=== PATIENT | female | born 1935 | race Caucasian/White ===

== ENCOUNTER 2016-06-17 09:52 | Emergency (ER) | payer OTHER ==
--- NOTE | 2016-06-17 10:25 | PROVIDER DOCUMENTATION ---
HPI-Neurological Disorder - General Chief Complaint: Altered Mental Status Stated Complaint: AMS Time Seen by Provider: 06/17/16 09:56 Source: patient, EMS, other (talked with assisted living) Allergies/Adverse Reactions: Patient Allergies Allergy/AdvReac Type Severity Reaction Status Date / Time No Known Allergies Allergy Verified 06/17/16 10:56 Home Medications: Home Medication List Medication Instructions Recorded Confirmed Last Taken Type Aspirin [Aspir-Low] 81 mg PO DAILY 04/09/16 06/17/16 06/17/16 History Atorvastatin Calcium 20 mg PO HS 04/09/16 06/17/16 06/16/16 History Famotidine 40 mg PO DAILY 04/09/16 06/17/16 06/17/16 History Folic Acid 1 mg PO DAILY 04/09/16 06/17/16 06/17/16 History Furosemide 40 mg PO DAILY 04/09/16 06/17/16 06/17/16 History Hydralazine HCl 50 mg PO BID 04/09/16 06/17/16 06/17/16 History Insulin NPH Hum/Reg Insulin Hm 10 unit SQ QPM 04/09/16 06/17/16 06/16/16 History [Humulin 70/30 Kwikpen] Insulin NPH Hum/Reg Insulin Hm 15 unit SQ QAM 04/09/16 06/17/16 06/17/16 History [Humulin 70/30 Kwikpen] Nifedipine E.r. [Adalat cc] 30 mg PO TID 04/09/16 06/17/16 06/17/16 History Olanzapine [Zyprexa] 5 mg PO HS 04/09/16 06/17/16 06/16/16 History Spironolactone 25 mg PO DAILY 04/09/16 06/17/16 06/17/16 History Warfarin Sodium 2 mg PO DIRECTED 04/09/16 06/17/16 06/17/16 History Warfarin Sodium 4 mg PO DIRECTED 04/09/16 06/17/16 06/16/16 History Divalproex Sodium [Depakote ER] 2 tab PO HS #30 tab.er.24h 04/12/16 06/17/16 Rx Duloxetine HCl 30 mg PO DAILY #30 04/12/16 06/17/16 06/17/16 Rx Levothyroxine [Synthroid] 50 microgm PO ACB #90 tablet 04/12/16 06/17/16 Rx Temazepam 15 mg PO PRN PRN #20 capsule 04/12/16 06/17/16 Unknown Rx Tramadol HCl 50 mg PO PRN PRN #20 tablet 04/12/16 06/17/16 Unknown Rx Carvedilol [Coreg] 1.5 tab PO BID 06/17/16 06/17/16 06/17/16 History Sulfamethoxazole/Trimethoprim 1 each PO BID #20 tablet 06/17/16 Unknown Rx [Bactrim Ds Tablet] - History of Present Illness-Neuro Nature of Presenting Problem: 81 yo resides at [facility] assisted living. Staff noted patient was more lethargic than usual. She seemed more confused and they noted that her pulse was down in the 40s. Pt does have some underlying confusion and dementia but this is more severe. Staff denies any falls or fever. Onset/Duration: reports: unsure Context: reports: other (more lethargic and confused, difficulty with standing and ambulating) Character of Altered Mental Status: reports: confused, decreased responsiveness Any recent trauma/injury?: reports: none Character of Deficits: reports: decreased ability to stand, decreased ability to walk Review of Systems - Adult - REVIEW OF SYSTEMS - ADULT Constitutional: reports: see HPI Eyes: reports: no symptoms reported Ears, Nose, Mouth & Throat: reports: no symptoms reported Cardiovascular: reports: other (staff noted slow pulse in the 40s) Respiratory: reports: no symptoms reported Gastrointestinal: reports: no symptoms reported Past History - Adult - PAST MEDICAL HISTORY-ADULT Review of Records: reports: Nursing Assessment Review, Medications Reviewed Major Childhood Illnesses: reports: history unknown Cardiovascular: reports: heart valve problem, murmur. denies: A-Fib, CAD, palpitations, pacemaker Respiratory: reports: denies history Gastrointestinal: reports: denies history Genitourinary: reports: denies history Psychiatric: reports: denies history Endocrine/Immune: reports: Diabetes - FAMILY HISTORY Family History: reviewed, not pertinent Physical Exam- Neurological - Physical Exam-Neuro Initial Vital Signs Reviewed: Yes General Appearance: alert, no apparent distress Eye Exam: bilateral eye: normal inspection, PERRL, EOMI HENMT: moist mucous membranes, normal ENT inspection, TMs normal Head Injury: no evidence of injury Neck: non-tender, supple, normal inspection Respiratory: chest non-tender, lungs clear, normal breath sounds Cardiovascular: systolic murmur, gallop/S3, extra beats Abdominal Exam: normal bowel sounds, non tender, soft, no organomegaly Lymphatic: no adenopathy Extremity: normal range of motion, non-tender, normal inspection, no pedal edema chair and couch maker Exam: normal hearing, normal speech, PERRL Motor/Sensory: no motor deficit, no sensory deficit, no pronator drift Neurologic: grossly normal, no motor/sensory deficits, other (oriented x 1) Psych/Mental Status: normal thought content, other (oriented x1) Progress - PLAN OF CARE/RESULTS Progress/Plan/Lab Results: Laboratory Tests 06/17/16 06/17/16 06/17/16 10:23 10:40 10:40 WBC 7.74 RBC 4.35 Hgb 13.3 Hct 41.6 MCV 95.6 MCH 30.6 MCHC 32.0 L RDW Std Deviation 14.5 Plt Count 243 MPV 11.2 H Immature Gran % (Auto) 0.4 Neut % (Auto) 65.4 Lymph % (Auto) 16.5 L Terrell % (Auto) 12.5 H Eos % (Auto) 4.7 Baso % (Auto) 0.5 Immature Gran # (Auto) 0.03 Neut # (Auto) 5.06 Lymph # (Auto) 1.28 Terrell # (Auto) 0.97 H Eos # (Auto) 0.36 Baso # (Auto) 0.04 PT INR PTT (Actin FS) Specimen Type Sample Site pH pCO2 pO2 HCO3 Base Excess Oxyhemoglobin ABG O2 Sat (Calculated) ABG O2 Saturation ABG Carboxyhemoglobin ABG Methemoglobin Rebel Test A-a O2 Difference Total Hemoglobin Lactate Blood Gas Modality FiO2 % Sodium Potassium Chloride Carbon Dioxide Anion Gap BUN Creatinine Estimated GFR/1.73 m2 BUN/Creatinine Ratio Glucose POC Glucose 141 H Calculated Osmolality Calcium Total Bilirubin AST ALT Alkaline Phosphatase Creatine Kinase Troponin T Total Protein Albumin Globulin Albumin/Globulin Ratio Plasma Lactate Urine Source Urine Color Urine Turbidity Urine pH Ur Specific [place] Urine Protein Ur Glucose (Stick) Ur Ketones (Stick) Urine Blood Urine Nitrite Urine Bilirubin Urobilinogen Dipstick Urine Leukocytes Urine WBC (Auto) Urine RBC (Auto) U Epithel Cells (Auto) Urine Bacteria (Auto) Urine Opiates Screen Ur Oxycodone Screen Urine Methadone Screen Ur Barbiturates Screen Ur Phencyclidine Scrn Ur Amphetamines Screen U Benzodiazepines Scrn Urine Cocaine Screen U Cannabinoids Screen Plasma/Serum Ethyl Alc 06/17/16 06/17/16 06/17/16 10:40 10:40 10:40 WBC RBC Hgb Hct MCV MCH MCHC RDW Std Deviation Plt Count MPV Immature Gran % (Auto) Neut % (Auto) Lymph % (Auto) Terrell % (Auto) Eos % (Auto) Baso % (Auto) Immature Gran # (Auto) Neut # (Auto) Lymph # (Auto) Terrell # (Auto) Eos # (Auto) Baso # (Auto) PT 48.8 H INR 4.53 PTT (Actin FS) 48.4 H Specimen Type Sample Site pH pCO2 pO2 HCO3 Base Excess Oxyhemoglobin ABG O2 Sat (Calculated) ABG O2 Saturation ABG Carboxyhemoglobin ABG Methemoglobin Rebel Test A-a O2 Difference Total Hemoglobin Lactate Blood Gas Modality FiO2 % Sodium 143 Potassium 3.7 Chloride 104 Carbon Dioxide 23 L Anion Gap 16 BUN 20 Creatinine 1.2 H Estimated GFR/1.73 m2 43 BUN/Creatinine Ratio 17 Glucose 134 H POC Glucose Calculated Osmolality 290 Calcium 9.3 Total Bilirubin 0.24 AST 30 ALT 14 Alkaline Phosphatase 92 Creatine Kinase 29 Troponin T < 0.010 Total Protein 5.8 L Albumin 3.6 Globulin 2.2 Albumin/Globulin Ratio 1.6 Plasma Lactate Urine Source Urine Color Urine Turbidity Urine pH Ur Specific [place] Urine Protein Ur Glucose (Stick) Ur Ketones (Stick) Urine Blood Urine Nitrite Urine Bilirubin Urobilinogen Dipstick Urine Leukocytes Urine WBC (Auto) Urine RBC (Auto) U Epithel Cells (Auto) Urine Bacteria (Auto) Urine Opiates Screen Ur Oxycodone Screen Urine Methadone Screen Ur Barbiturates Screen Ur Phencyclidine Scrn Ur Amphetamines Screen U Benzodiazepines Scrn Urine Cocaine Screen U Cannabinoids Screen Plasma/Serum Ethyl Alc 06/17/16 06/17/16 06/17/16 10:45 11:39 11:39 WBC RBC Hgb Hct MCV MCH MCHC RDW Std Deviation Plt Count MPV Immature Gran % (Auto) Neut % (Auto) Lymph % (Auto) Terrell % (Auto) Eos % (Auto) Baso % (Auto) Immature Gran # (Auto) Neut # (Auto) Lymph # (Auto) Terrell # (Auto) Eos # (Auto) Baso # (Auto) PT INR PTT (Actin FS) Specimen Type ARTERIAL Sample Site R BRACHIAL pH 7.47 H pCO2 35 pO2 67 HCO3 26.5 H Base Excess 2.1 Oxyhemoglobin 93.3 L ABG O2 Sat (Calculated) 17.3 ABG O2 Saturation 97.3 ABG Carboxyhemoglobin 2.50 ABG Methemoglobin 1.6 H Rebel Test NO A-a O2 Difference 39.0 Total Hemoglobin 13.2 Lactate 2.10 Blood Gas Modality ROOM AIR FiO2 % 21.0 Sodium Potassium Chloride Carbon Dioxide Anion Gap BUN Creatinine Estimated GFR/1.73 m2 BUN/Creatinine Ratio Glucose POC Glucose Calculated Osmolality Calcium Total Bilirubin AST ALT Alkaline Phosphatase Creatine Kinase Troponin T Total Protein Albumin Globulin Albumin/Globulin Ratio Plasma Lactate Urine Source CATH Urine Color STRAW Urine Turbidity CLEAR Urine pH 7.0 Ur Specific [place] 1.006 Urine Protein NEGATIVE Ur Glucose (Stick) NEGATIVE Ur Ketones (Stick) NEGATIVE Urine Blood NEGATIVE Urine Nitrite NEGATIVE Urine Bilirubin NEGATIVE Urobilinogen Dipstick NORMAL Urine Leukocytes MODERATE A Urine WBC (Auto) TNTC A Urine RBC (Auto) <10 U Epithel Cells (Auto) <10 Urine Bacteria (Auto) NEGATIVE Urine Opiates Screen NONE DETECTED Ur Oxycodone Screen NONE DETECTED Urine Methadone Screen NONE DETECTED Ur Barbiturates Screen NONE DETECTED Ur Phencyclidine Scrn NONE DETECTED Ur Amphetamines Screen NONE DETECTED U Benzodiazepines Scrn NONE DETECTED Urine Cocaine Screen NONE DETECTED U Cannabinoids Screen NONE DETECTED Plasma/Serum Ethyl Alc 06/17/16 06/17/16 06/17/16 11:44 13:00 13:00 WBC RBC Hgb Hct MCV MCH MCHC RDW Std Deviation Plt Count MPV Immature Gran % (Auto) Neut % (Auto) Lymph % (Auto) Terrell % (Auto) Eos % (Auto) Baso % (Auto) Immature Gran # (Auto) Neut # (Auto) Lymph # (Auto) Terrell # (Auto) Eos # (Auto) Baso # (Auto) PT INR PTT (Actin FS) Specimen Type Sample Site pH pCO2 pO2 HCO3 Base Excess Oxyhemoglobin ABG O2 Sat (Calculated) ABG O2 Saturation ABG Carboxyhemoglobin ABG Methemoglobin Rebel Test A-a O2 Difference Total Hemoglobin Lactate Blood Gas Modality FiO2 % Sodium Potassium Chloride Carbon Dioxide Anion Gap BUN Creatinine Estimated GFR/1.73 m2 BUN/Creatinine Ratio Glucose POC Glucose Calculated Osmolality Calcium Total Bilirubin AST ALT Alkaline Phosphatase Creatine Kinase 21 L Troponin T < 0.010 Total Protein Albumin Globulin Albumin/Globulin Ratio Plasma Lactate 1.8 Urine Source Urine Color Urine Turbidity Urine pH Ur Specific [place] Urine Protein Ur Glucose (Stick) Ur Ketones (Stick) Urine Blood Urine Nitrite Urine Bilirubin Urobilinogen Dipstick Urine Leukocytes Urine WBC (Auto) Urine RBC (Auto) U Epithel Cells (Auto) Urine Bacteria (Auto) Urine Opiates Screen Ur Oxycodone Screen Urine Methadone Screen Ur Barbiturates Screen Ur Phencyclidine Scrn Ur Amphetamines Screen U Benzodiazepines Scrn Urine Cocaine Screen U Cannabinoids Screen Plasma/Serum Ethyl Alc Orders Category Date Time Status Cardiac Monitoring DIRECTED Care 06/17/16 10:12 Active Finger Stick Blood Sugar (ED) DIRECTED Care 06/17/16 10:12 Active Oxygen Therapy- ED Nursing DIRECTED Care 06/17/16 10:12 Active Saline Loc NOW Care 06/17/16 10:12 Active Diabetic Diet Diet 06/17/16 13:03 Completed CHEST-PORTABLE [RAD] Stat Exams 06/17/16 10:12 Completed HEAD W/O CONTRAST [CT] Stat Exams 06/17/16 10:12 Completed ABG [RESP] Routine Lab 06/17/16 10:45 Completed ALCOHOL BLOOD Stat Lab 06/17/16 10:40 Completed BLOOD CULTURE [BLDCUL] Stat Lab 06/17/16 11:40 Results CBC WITH ELECTRONIC DIFF [HEME] Stat Lab 06/17/16 10:40 Completed CK PROFILE [SP CHEM] Stat Lab 06/17/16 10:40 Completed CK PROFILE [SP CHEM] Stat Lab 06/17/16 13:00 Completed COMPREHENSIVE METABOLIC PANEL [CHEM] Stat Lab 06/17/16 10:40 Completed LACTATE, PLASMA [CHEM] Stat Lab 06/17/16 11:44 Completed PROTIME WITH INR [COAG] Stat Lab 06/17/16 10:40 Completed PTT [COAG] Stat Lab 06/17/16 10:40 Completed TROPONIN T Stat Lab 06/17/16 10:40 Completed TROPONIN T Stat Lab 06/17/16 13:00 Completed URINALYSIS W/POSS RFLX CULT [URINALYSIS] Stat Lab 06/17/16 11:39 Completed URINE CULTURE [RM] Routine Lab 06/17/16 12:15 Received URINE DRUG SCREEN MEDTOX Stat Lab 06/17/16 11:39 Completed CefTRIAXONE 1 GM/NS [Rocephin 1 gm/Ns] 50 ml Med 06/17/16 13:34 Discontinued IV NOW Pulse Oximetry Stat Oth 06/17/16 10:12 Completed EKG [EKG] Stat Ther 06/17/16 10:12 Ordered EKG [EKG] Stat Ther 06/17/16 12:34 Ordered Vital Signs Temp Pulse Resp BP Pulse Ox 06/17/16 15:09 78 22 194/79 97 06/17/16 14:02 84 16 194/79 98 06/17/16 11:50 75 21 181/63 95 06/17/16 10:25 97.4 F L 68 25 H 167/82 96 No Known Allergies Allergy (Verified 06/17/16 10:56) Aspirin [Aspir-Low] 81 mg PO DAILY 04/09/16 Atorvastatin Calcium 20 mg PO HS 04/09/16 Famotidine 40 mg PO DAILY 04/09/16 Folic Acid 1 mg PO DAILY 04/09/16 Furosemide 40 mg PO DAILY 04/09/16 Hydralazine HCl 50 mg PO BID 04/09/16 Insulin NPH Hum/Reg Insulin Hm [Humulin 70/30 Kwikpen] 10 unit SQ QPM 04/09/16 Insulin NPH Hum/Reg Insulin Hm [Humulin 70/30 Kwikpen] 15 unit SQ QAM 04/09/16 Nifedipine E.r. [Adalat cc] 30 mg PO TID 04/09/16 Olanzapine [Zyprexa] 5 mg PO HS 04/09/16 Spironolactone 25 mg PO DAILY 04/09/16 Warfarin Sodium 2 mg PO DIRECTED 04/09/16 Warfarin Sodium 4 mg PO DIRECTED 04/09/16 Divalproex Sodium [Depakote ER] 2 tab PO HS #30 tab.er.24h 04/12/16 Duloxetine HCl 30 mg PO DAILY #30 04/12/16 Levothyroxine [Synthroid] 50 microgm PO ACB #90 tablet 04/12/16 Temazepam 15 mg PO PRN PRN #20 capsule 04/12/16 Tramadol HCl 50 mg PO PRN PRN #20 tablet 04/12/16 Carvedilol [Coreg] 1.5 tab PO BID 06/17/16 Sulfamethoxazole/Trimethoprim [Bactrim Ds Tablet] 1 each PO BID #20 tablet 06/17 I&O 06/16/16 06/17/16 06/18/16 06:59 06:59 06:59 Output Total 12 Balance -12 Laboratory 06/17/16 06/17/16 06/17/16 13:00 13:00 11:44 WBC RBC Hgb Hct MCV MCH MCHC RDW Std Deviation Plt Count MPV Immature Gran % (Auto) Neut % (Auto) Lymph % (Auto) Terrell % (Auto) Eos % (Auto) Baso % (Auto) Immature Gran # (Auto) Neut # (Auto) Lymph # (Auto) Terrell # (Auto) Eos # (Auto) Baso # (Auto) PT INR PTT (Actin FS) Specimen Type Sample Site pH pCO2 pO2 HCO3 Base Excess Oxyhemoglobin ABG O2 Sat (Calculated) ABG O2 Saturation ABG Carboxyhemoglobin ABG Methemoglobin Rebel Test A-a O2 Difference Total Hemoglobin Lactate Blood Gas Modality FiO2 % Sodium Potassium Chloride Carbon Dioxide Anion Gap BUN Creatinine Estimated GFR/1.73 m2 BUN/Creatinine Ratio Glucose POC Glucose Calculated Osmolality Calcium Total Bilirubin AST ALT Alkaline Phosphatase Creatine Kinase 21 L Troponin T < 0.010 Total Protein Albumin Globulin Albumin/Globulin Ratio Plasma Lactate 1.8 Urine Source Urine Color Urine Turbidity Urine pH Ur Specific [place] Urine Protein Ur Glucose (Stick) Ur Ketones (Stick) Urine Blood Urine Nitrite Urine Bilirubin Urobilinogen Dipstick Urine Leukocytes Urine WBC (Auto) Urine RBC (Auto) U Epithel Cells (Auto) Urine Bacteria (Auto) Urine Opiates Screen Ur Oxycodone Screen Urine Methadone Screen Ur Barbiturates Screen Ur Phencyclidine Scrn Ur Amphetamines Screen U Benzodiazepines Scrn Urine Cocaine Screen U Cannabinoids Screen Plasma/Serum Ethyl Alc 06/17/16 06/17/16 06/17/16 11:39 11:39 10:45 WBC RBC Hgb Hct MCV MCH MCHC RDW Std Deviation Plt Count MPV Immature Gran % (Auto) Neut % (Auto) Lymph % (Auto) Terrell % (Auto) Eos % (Auto) Baso % (Auto) Immature Gran # (Auto) Neut # (Auto) Lymph # (Auto) Terrell # (Auto) Eos # (Auto) Baso # (Auto) PT INR PTT (Actin FS) Specimen Type ARTERIAL Sample Site R BRACHIAL pH 7.47 H pCO2 35 pO2 67 HCO3 26.5 H Base Excess 2.1 Oxyhemoglobin 93.3 L ABG O2 Sat (Calculated) 17.3 ABG O2 Saturation 97.3 ABG Carboxyhemoglobin 2.50 ABG Methemoglobin 1.6 H Rebel Test NO A-a O2 Difference 39.0 Total Hemoglobin 13.2 Lactate 2.10 Blood Gas Modality ROOM AIR FiO2 % 21.0 Sodium Potassium Chloride Carbon Dioxide Anion Gap BUN Creatinine Estimated GFR/1.73 m2 BUN/Creatinine Ratio Glucose POC Glucose Calculated Osmolality Calcium Total Bilirubin AST ALT Alkaline Phosphatase Creatine Kinase Troponin T Total Protein Albumin Globulin Albumin/Globulin Ratio Plasma Lactate Urine Source CATH Urine Color STRAW Urine Turbidity CLEAR Urine pH 7.0 Ur Specific [place] 1.006 Urine Protein NEGATIVE Ur Glucose (Stick) NEGATIVE Ur Ketones (Stick) NEGATIVE Urine Blood NEGATIVE Urine Nitrite NEGATIVE Urine Bilirubin NEGATIVE Urobilinogen Dipstick NORMAL Urine Leukocytes MODERATE A Urine WBC (Auto) TNTC A Urine RBC (Auto) <10 U Epithel Cells (Auto) <10 Urine Bacteria (Auto) NEGATIVE Urine Opiates Screen NONE DETECTED Ur Oxycodone Screen NONE DETECTED Urine Methadone Screen NONE DETECTED Ur Barbiturates Screen NONE DETECTED Ur Phencyclidine Scrn NONE DETECTED Ur Amphetamines Screen NONE DETECTED U Benzodiazepines Scrn NONE DETECTED Urine Cocaine Screen NONE DETECTED U Cannabinoids Screen NONE DETECTED Plasma/Serum Ethyl Alc 06/17/16 06/17/16 06/17/16 10:40 10:40 10:40 WBC RBC Hgb Hct MCV MCH MCHC RDW Std Deviation Plt Count MPV Immature Gran % (Auto) Neut % (Auto) Lymph % (Auto) Terrell % (Auto) Eos % (Auto) Baso % (Auto) Immature Gran # (Auto) Neut # (Auto) Lymph # (Auto) Terrell # (Auto) Eos # (Auto) Baso # (Auto) PT 48.8 H INR 4.53 PTT (Actin FS) 48.4 H Specimen Type Sample Site pH pCO2 pO2 HCO3 Base Excess Oxyhemoglobin ABG O2 Sat (Calculated) ABG O2 Saturation ABG Carboxyhemoglobin ABG Methemoglobin Rebel Test A-a O2 Difference Total Hemoglobin Lactate Blood Gas Modality FiO2 % Sodium 143 Potassium 3.7 Chloride 104 Carbon Dioxide 23 L Anion Gap 16 BUN 20 Creatinine 1.2 H Estimated GFR/1.73 m2 43 BUN/Creatinine Ratio 17 Glucose 134 H POC Glucose Calculated Osmolality 290 Calcium 9.3 Total Bilirubin 0.24 AST 30 ALT 14 Alkaline Phosphatase 92 Creatine Kinase 29 Troponin T < 0.010 Total Protein 5.8 L Albumin 3.6 Globulin 2.2 Albumin/Globulin Ratio 1.6 Plasma Lactate Urine Source Urine Color Urine Turbidity Urine pH Ur Specific [place] Urine Protein Ur Glucose (Stick) Ur Ketones (Stick) Urine Blood Urine Nitrite Urine Bilirubin Urobilinogen Dipstick Urine Leukocytes Urine WBC (Auto) Urine RBC (Auto) U Epithel Cells (Auto) Urine Bacteria (Auto) Urine Opiates Screen Ur Oxycodone Screen Urine Methadone Screen Ur Barbiturates Screen Ur Phencyclidine Scrn Ur Amphetamines Screen U Benzodiazepines Scrn Urine Cocaine Screen U Cannabinoids Screen Plasma/Serum Ethyl Alc 06/17/16 06/17/16 06/17/16 10:40 10:40 10:23 WBC 7.74 RBC 4.35 Hgb 13.3 Hct 41.6 MCV 95.6 MCH 30.6 MCHC 32.0 L RDW Std Deviation 14.5 Plt Count 243 MPV 11.2 H Immature Gran % (Auto) 0.4 Neut % (Auto) 65.4 Lymph % (Auto) 16.5 L Terrell % (Auto) 12.5 H Eos % (Auto) 4.7 Baso % (Auto) 0.5 Immature Gran # (Auto) 0.03 Neut # (Auto) 5.06 Lymph # (Auto) 1.28 Terrell # (Auto) 0.97 H Eos # (Auto) 0.36 Baso # (Auto) 0.04 PT INR PTT (Actin FS) Specimen Type Sample Site pH pCO2 pO2 HCO3 Base Excess Oxyhemoglobin ABG O2 Sat (Calculated) ABG O2 Saturation ABG Carboxyhemoglobin ABG Methemoglobin Rebel Test A-a O2 Difference Total Hemoglobin Lactate Blood Gas Modality FiO2 % Sodium Potassium Chloride Carbon Dioxide Anion Gap BUN Creatinine Estimated GFR/1.73 m2 BUN/Creatinine Ratio Glucose POC Glucose 141 H Calculated Osmolality Calcium Total Bilirubin AST ALT Alkaline Phosphatase Creatine Kinase Troponin T Total Protein Albumin Globulin Albumin/Globulin Ratio Plasma Lactate Urine Source Urine Color Urine Turbidity Urine pH Ur Specific [place] Urine Protein Ur Glucose (Stick) Ur Ketones (Stick) Urine Blood Urine Nitrite Urine Bilirubin Urobilinogen Dipstick Urine Leukocytes Urine WBC (Auto) Urine RBC (Auto) U Epithel Cells (Auto) Urine Bacteria (Auto) Urine Opiates Screen Ur Oxycodone Screen Urine Methadone Screen Ur Barbiturates Screen Ur Phencyclidine Scrn Ur Amphetamines Screen U Benzodiazepines Scrn Urine Cocaine Screen U Cannabinoids Screen Plasma/Serum Ethyl Alc - EKG 1 Time of EKG reading by physician:: 10:24 EKG Read and Signed by:: Bela Silver EKG Interpretation (*Must complete 3 of following elements*): Abnormal Rate: 69 Rhythm: sinus rhythm with frequent PVC Una: normal QRS: poor R wave progression ST Wave: non-specific ST changes - CT/MRI 1 CT Study: Head (stable atrophy, no acute process) - CHANGE OF SHIFT REPORT (ED Provider) Tentative Impression of Patient: UTI, elevated INR Departure - Departure Time of Disposition Order: 14:05 DIAGNOSIS: UTI (urinary tract infection), bacterial, Mental status alteration, Elevated INR (international normalized ratio) due to prior anticoagulant medication ingestion Disposition: HOME 01 Certified Medical Emergency: Emergent Condition: Stable Additional Instructions: 1 UTI- take bactrim twice a day until gone. Drink plenty of fluids 2. elevated INR - hold coumadin . Recheck INR/ protime Monday 06/19 and further instructions after INR results received per PMD 3. return if increasing problems ED Follow Up Instructions: You have been treated by a care provider in the Emergency Department. These instructions are being provided to you so you can have an understanding of how to care for yourself upon discharge. Upon discharge from the Emergency Department, you are responsible for making arrangements for follow-up care by a physician of your choice. Take all prescribed medications as directed. Return to the Emergency Department immediately for any new or worsening symptoms. You may call the Physician Referral phone number at [phone] to obtain a list of Physicians who are taking new patients. Prescriptions: Sulfamethoxazole/Trimethoprim [Bactrim Ds Tablet] 1 each PO BID #20 tablet Referrals: Lowell Stewart MD [Primary Care Provider] - Instructions: Altered Mental Status, Urinary Tract Infection, [id number]
[2016-06-17 10:57] LABS: ALLEN TEST NO; BE 2.1 mmoll (-3.0-3.0); BLOOD TYPE ARTERIAL; DRAW SITE R BRACHIAL; METHB 1.6 % (0.0-1.5); O2(CT) 17.3 mL/dL (15.0-23.0); PCO2(98.6) 35 mmHg (35-45); PO2(98.6) 67 mmHg (60-100); SAMPLE BLOOD; SAO2 97.3 % (95.0-100.0); THB 13.2 g/dL (11.5-17.4); pH(98.6) 7.47 (7.35-7.45)
[2016-06-17 10:58] LABS: MODALITY ROOM AIR
[2016-06-17 11:06] LABS: MANUAL DIFF NEEDED? NO
[2016-06-17 11:10] LABS: BASO% 0.5 % (0.0-0.8); EOS# 0.36 X1000 (0.0-0.7); EOS% 4.7 % (0.0-10.0); HEMATOCRIT 41.6 % (37.0-47.0); HEMOGLOBIN 13.3 g/dL (12.0-16.0); IMM GRAN# 0.03 X1000 (0.0-0.04); IMM GRAN% 0.4 % (0.0-0.5); LYMPH# 1.28 X1000 (1.2-3.4); LYMPH% 16.5 % (20.5-51.1); MCH 30.6 PG (27-31); MCV 95.6 FL (81-99); MONO# 0.97 X1000 (0.11-0.59); MONO% 12.5 % (1.7-9.3); MPV 11.2 FL (7.4-10.4); NEUT% 65.4 % (42.2-75.2); PLT 243 X1000 (130-400); RBC 4.35 XMIL (4.2-5.4)
[2016-06-17 11:31] LABS: ALBUMIN 3.6 g/dL (3.5-5.0); CALCIUM 9.3 mg/dL (8.8-10.2); POTASSIUM 3.7 mmol/L (3.5-5.1); TOTAL BILIRUBIN 0.24 mg/dL (0.20-1.00); TOTAL PROTEIN 5.8 g/dL (6.3-8.3)
--- NOTE | 2016-06-17 11:50 | Diag Imaging Result Document ---
PROCEDURE NAME: HEAD W/O CONTRAST - 06/17/2016 CT HEAD WITHOUT CONTRAST: COMPARISON: 04/09/2016. FINDINGS: There is mild diffuse brain atrophy, stable. There is no evidence of acute infarct given the limited sensitivity of CT versus MRI. There is no discrete intracranial mass, mass effect, or intracranial hemorrhage. Surrounding soft tissues and bony structures are essentially unremarkable. IMPRESSION: Stable mild atrophy but no definite acute intracranial pathology.
[2016-06-17 11:51] LABS: INR 4.53; PROTIME 48.8 Seconds (9.2-11.7); PTT 48.4 Seconds (22.0-36.0)
[2016-06-17 11:56] LABS: URINE MICRO REVIEW NEEDED? NO; URINE SOURCE CATH
[2016-06-17 12:01] LABS: BILIRUBIN URINE NEGATIVE (NEGATIVE); BLOOD URINE NEGATIVE (NEGATIVE); COLOR STRAW; GLUCOSE URINE NEGATIVE (NEGATIVE); LEUKOCYTES URINE MODERATE (NEGATIVE); NITRITE URINE NEGATIVE (NEGATIVE); PROTEIN URINE NEGATIVE (NEGATIVE); SP GRAVITY URINE 1.006; TURBIDITY URINE CLEAR (CLEAR); UR EPITHELIAL CELLS <10 /HPF (<10); URINE BACTERIA NEGATIVE /HPF; URINE CULTURE NEEDED? YES; URINE RBC <10 /HPF (<10); URINE WBC TNTC /HPF (<10); UROBILINOGEN URINE NORMAL (NORMAL)
[2016-06-17 12:14] LABS: UR AMPHETAMINES MT NONE DETECTED (NONE DETECT); UR BARBITUATES MT NONE DETECTED (NONE DETECT); UR BENZODIAZ MT NONE DETECTED (NONE DETECT); UR CANNABIS MEDTOX NONE DETECTED (NONE DETECT); UR COCAINE MT NONE DETECTED (NONE DETECT); UR METHADONE MEDTOX NONE DETECTED (NONE DETECT); UR OPIATES MT NONE DETECTED (NONE DETECT); UR OXYCODONE MEDTOX NONE DETECTED (NONE DETECT); UR PCP MEDTOX NONE DETECTED (NONE DETECT)
--- NOTE | 2016-06-17 12:20 | Diag Imaging Result Document ---
PROCEDURE NAME: CHEST-PORTABLE - 06/17/2016 SINGLE FRONTAL RADIOGRAPH OF THE CHEST: COMPARISON: 04/09/2016. FINDINGS: Inspiration is suboptimal. The lungs are grossly clear. There is no definite pleural fluid collection. 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 Cardiac silhouette and central vasculature are grossly unremarkable, otherwise. IMPRESSION: No definite acute pathology.
[2016-06-17] MEDS ORDERED: ROCEPHIN 1 GM/NS 50 ML IV ONE (13:34)
[2016-06-17 14:03] VITALS: BP 194/79
--- NOTE | 2016-06-18 06:11 | EKG Report ---
Test Performed on : 06/17/2016 10:24:52 AM Test Reason : AMS Blood Pressure : / mmHG Vent. Rate : 069 BPM Atrial Rate : 077 BPM P-R Int : 156 ms QRS Dur : 102 ms QT Int : 422 ms P-R-T Axes : 020 014 154 degrees QTc Int : 452 ms Sinus rhythm. with blocked premature atrial complexes. with premature supraventricular complexes. and with occasional premature ventricular complexes. Possible Anterior infarct (cited on or before 09-APR-2016) ST & T wave abnormality, consider lateral ischemia Abnormal ECG When compared with ECG of 09-APR-2016 12:54, premature ventricular complexes. are now present premature supraventricular complexes. are now present Unconfirmed Result
--- NOTE | 2016-06-18 06:14 | EKG Report ---
Test Performed on : 06/17/2016 12:46:38 PM Test Reason : ams Blood Pressure : / mmHG Vent. Rate : 079 BPM Atrial Rate : 079 BPM P-R Int : 176 ms QRS Dur : 092 ms QT Int : 412 ms P-R-T Axes : 048 031 145 degrees QTc Int : 472 ms Sinus rhythm. with frequent premature ventricular complexes. Cannot rule out Anterior infarct (cited on or before 09-APR-2016) T wave abnormality, consider lateral ischemia Abnormal ECG When compared with ECG of 17-JUN-2016 10:24, (Unconfirmed) premature supraventricular complexes. are no longer present Unconfirmed Result
== END 2016-06-17 15:10 | disposition home or self-care (01) ==
LOC: EDBD → ED 09:52
DX: N39.0 Urinary tract infection, site not specified (principal); B96.89 Other specified bacterial agents as the cause of diseases classified elsewhere; R41.82 Altered mental status, unspecified; R79.1 Abnormal coagulation profile; Z79.01 Long term (current) use of anticoagulants; R53.83 Other fatigue; R41.0 Disorientation, unspecified; R26.81 Unsteadiness on feet; Z79.899 Other long term (current) drug therapy; E11.9 Type 2 diabetes mellitus without complications; R94.31 Abnormal electrocardiogram [ECG] [EKG]; Z79.4 Long term (current) use of insulin; Z79.82 Long term (current) use of aspirin
CPT/HCPCS: 70450; 71010; 80053; 80306; 81001; 82550; 82805; 82948; 83605; 84484; 85025; 85610; 85730; 87040; 87077; 87088; 87186; 93005; G0480; J0696; 80320

== ENCOUNTER 2016-06-20 11:24 | Emergency (ER) | payer OTHER ==
[2016-06-20] MEDS ORDERED: XYLOCAINE 2% JELLY UROJECT TOP ONE (13:31)
--- NOTE | 2016-06-20 14:32 | PROVIDER DOCUMENTATION ---
HPI-Rash/Wound/ReCheck - General Chief Complaint: Laceration[s] Stated Complaint: WEAKNESS/SKIN TEAR Time Seen by Provider: 06/20/16 13:31 Source: patient Allergies/Adverse Reactions: Allergies Allergy/AdvReac Type Severity Reaction Status Date / Time No Known Allergies Allergy Verified 06/17/16 10:56 Home Medications: Home Medication List Medication Instructions Recorded Confirmed Last Taken Type Aspirin [Aspir-Low] 81 mg PO DAILY 04/09/16 06/17/16 06/17/16 History Atorvastatin Calcium 20 mg PO HS 04/09/16 06/17/16 06/16/16 History Famotidine 40 mg PO DAILY 04/09/16 06/17/16 06/17/16 History Folic Acid 1 mg PO DAILY 04/09/16 06/17/16 06/17/16 History Furosemide 40 mg PO DAILY 04/09/16 06/17/16 06/17/16 History Hydralazine HCl 50 mg PO BID 04/09/16 06/17/16 06/17/16 History Insulin NPH Hum/Reg Insulin Hm 10 unit SQ QPM 04/09/16 06/17/16 06/16/16 History [Humulin 70/30 Kwikpen] Insulin NPH Hum/Reg Insulin Hm 15 unit SQ QAM 04/09/16 06/17/16 06/17/16 History [Humulin 70/30 Kwikpen] Nifedipine E.r. [Adalat cc] 30 mg PO TID 04/09/16 06/17/16 06/17/16 History Olanzapine [Zyprexa] 5 mg PO HS 04/09/16 06/17/16 06/16/16 History Spironolactone 25 mg PO DAILY 04/09/16 06/17/16 06/17/16 History Warfarin Sodium 2 mg PO DIRECTED 04/09/16 06/17/16 06/17/16 History Warfarin Sodium 4 mg PO DIRECTED 04/09/16 06/17/16 06/16/16 History Divalproex Sodium [Depakote ER] 2 tab PO HS #30 tab.er.24h 04/12/16 06/17/16 Rx Duloxetine HCl 30 mg PO DAILY #30 04/12/16 06/17/16 06/17/16 Rx Levothyroxine [Synthroid] 50 microgm PO ACB #90 tablet 04/12/16 06/17/16 Rx Temazepam 15 mg PO PRN PRN #20 capsule 04/12/16 06/17/16 Unknown Rx Tramadol HCl 50 mg PO PRN PRN #20 tablet 04/12/16 06/17/16 Unknown Rx Carvedilol [Coreg] 1.5 tab PO BID 06/17/16 06/17/16 06/17/16 History Sulfamethoxazole/Trimethoprim 1 each PO BID #20 tablet 06/17/16 Unknown Rx [Bactrim Ds Tablet] Cephalexin [Keflex] 500 mg PO BID #14 capsule 06/20/16 Unknown Rx - History of Present Illness-Dermatology Nature of Presenting Problem: 81 year old WF who resides in an assisted living facility presents via ambulance with a skin tear to right hand. pt reports she was attempting to get out of the bathtub this morning with one of her care givers and she struck her hand to a handle bar on the wall. pt denies falling, head, neck or back pain. pt is very agitated and concerned her has been involved in a car accident, she reports he was on his way to the hospital and has not arrived. upon reading history, the patient has a history of dementia, I called the charge nurse at her facility and they report the patient was in the bath tub and three staff members were attempting to get her out of the bath tub. she was fearful of falling and was flailing her arms about and struck a handle bar on the wall, sustaining a skin tear. the staff members with the patient report she did not fall. Review of Systems - Adult - REVIEW OF SYSTEMS - ADULT Constitutional: reports: no symptoms reported. denies: chills, fever, fatique Eyes: reports: no symptoms reported. denies: discharge, blurred vision, double vision Ears, Nose, Mouth & Throat: reports: no symptoms reported. denies: ear discharge, ear pain, nose pain, loose teeth, throat pain, throat swelling Cardiovascular: reports: no symptoms reported. denies: chest pain, palpitations , poor circulation, syncope Respiratory: reports: no symptoms reported. denies: chronic cough, cough, shortness of breath, wheezing Gastrointestinal: reports: no symptoms reported. denies: abdominal pain, diarrhea, nausea, vomiting Genitourinary: reports: no symptoms reported. denies: dysuria, hematuria, urgency Musculoskeletal: reports: no symptoms reported. denies: bone pain, back pain, joint pain, joint swelling, neck pain Integumentary: reports: see HPI, skin sores/ulcer. denies: hives, rash Neurological: reports: no symptoms reported. denies: ataxia, dizziness/vertigo , headache/migraines, loss of balance, numbness, paresthesia, seizure, slurred speech, syncope, tremors Psychiatric: reports: no symptoms reported Endocrine: reports: no symptoms reported Hematologic/Lymphatic: reports: no symptoms reported Allergic/Immunologic: reports: no symptoms reported All Other Systems: Reviewed and Negative Past History - Adult - PAST MEDICAL HISTORY-ADULT Review of Records: reports: Old Records Reviewed, Nursing Assessment Review, Medications Reviewed, Social history reviewed & non-contributory. Major Childhood Illnesses: reports: history unknown Cardiovascular: reports: heart valve problem, murmur. denies: A-Fib, CAD, palpitations, pacemaker Respiratory: reports: denies history Gastrointestinal: reports: denies history Obstetrical/Gynecological: reports: denies history Genitourinary: reports: denies history Musculoskeletal: reports: denies history Neurological: reports: denies history Psychiatric: reports: denies history Endocrine/Immune: reports: Diabetes Other Conditions: reports: denies history - FAMILY HISTORY Family History: reviewed, not pertinent - SOCIAL HISTORY Smoking: denies, non-smoker Substance Use: none/never Alcohol Use Frequency: never Physical Exam-General - PHYSICAL EXAM-ADULT Initial Vital Signs Reviewed: Yes - CONSTITUTIONAL General Appearance: appears well, alert, no apparent distress. negative: mild distress, moderate distress, severe distress - EYES Eyes: pink conjunctivae. negative: conjuctival exudate, pale conjunctivae, sclera injected, scleral icterus, subconjunctival hemorrhage - HEAD, EARS, NOSE, MOUTH & THROAT HENMT: normocephalic/atraumatic, moist mucous membranes, normal ENT inspection - NECK Neck: non-tender, full range of motion, supple, normal inspection. negative: C- spine tenderness, limited range of motion, tender lateral, tender midline - RESPIRATORY Respiratory: chest non-tender, lungs clear, normal breath sounds, no pleuratic chest pain, no respiratory distress, no accessory muscle use - CARDIOVASCULAR Cardiovascular: normal peripheral pulses, regular rate, rhythm - CHEST (BREASTS) Chest/Breast: deferred - GASTROINTESTINAL (ABDOMEN) Abdominal Exam: normal bowel sounds, non tender, soft - GENITOURINARY Female Genitalia/Pelvic Exam: deferred Rectal Exam: deferred Hemoccult Exam: deferred - MUSCULOSKELETAL Back Exam: normal inspection, no CVA tenderness, no vertebral tenderness. negative: CVA tenderness, decreased range of motion, swelling, vertebral tenderness Extremity: normal range of motion, non-tender, normal gait, normal inspection, no pedal edema, no calf tenderness, normal capillary refill, pelvis stable. negative: abnormal NV exam, deformity, erythema, inflammation, slow capillary refill, tenderness Peripheral Pulses: radial (R): 3+, radial (L): 3+, dorsalis-pedis (R): 3+, dorsalis-pedis (L): 3+ - SKIN Integumentary: normal color, normal turgor, warm/dry. negative: pallor, petechiae, purpura, rash - NEUROLOGIC Neurologic: grossly normal, no motor/sensory deficits - PSYCHIATRIC Psych/Mental Status: normal mood/affect, normal thought content, normal thought process, oriented x 3 Progress - PLAN OF CARE/RESULTS Progress/Plan/Lab Results: Orders Category Date Time Status Lidocaine 2% Jelly Appl [Xylocaine 2% Jelly Uroject] Med 06/20/16 13:31 Discontinued 1 ml TOP NOW ONE Vital Signs - 24 hr 06/20/16 06/20/16 11:31 14:55 Temperature 97.6 F Pulse Rate 74 83 Respiratory 20 18 Rate Blood Pressure 142/71 155/94 O2 Sat by Pulse 100 96 Oximetry Procedures - LACERATION/WOUND REPAIR/FB Right Hand Wound Location: Other: right posterior hand Wound Length: 8cm Wound's Depth, Shape: superficial, irregular, flap, contused tissue Wound Explored/Foreign Body: clean, no foreign body found Irrigated with Saline?: Yes Prepped with: Hibiclens Anesthetic: 2% (lidocaine jelly applied topically) Wound Debrided: minimal Wound Repaired with: Sutures, Steri-strips (steri strips applied and sutures were placed throught the steri strips for support. pt's skin was fragile and easily tore during initial suturing attempt.) Suture Size/Type: 5.0, Non-Absorbable, Nylon Number of Sutures: 3 Layer Closure?: No Sterile Dressing Applied?: Yes Splint Applied?: No Sling Applied?: No Post Procedure Neurovascular Exam: Intact, No Tendon Injury Right See Other Wound Location: Other: right posterior hand Wound Length: 3cm Wound's Depth, Shape: superficial, irregular, contused tissue Wound Explored/Foreign Body: clean, no foreign body found Irrigated with Saline?: Yes Prepped with: Hibiclens Anesthetic: 2% (lidocaine jelly) Wound Repaired with: Steri-strips Right Dorsal See Other Wound Location: Other: right posterior hand Wound Length: 2cm Wound's Depth, Shape: superficial Wound Explored/Foreign Body: clean, no foreign body found Irrigated with Saline?: Yes Prepped with: Hibiclens Anesthetic: 2% (lidocaine jelly) Wound Debrided: minimal Wound Repaired with: Steri-strips Departure - Departure Time of Disposition Order: 14:28 DIAGNOSIS: Skin tear of right hand without complication Qualifiers: Encounter type: initial encounter Qualified Code(s): S61.411A - Laceration without foreign body of right hand, initial encounter Contusion Qualifiers: Encounter type: initial encounter Contusion area: hand Laterality: right Qualified Code(s): S60.221A - Contusion of right hand, initial encounter Disposition: HOME 01 Certified Medical Emergency: Emergent Condition: Stable Additional Instructions: Keep wound clean and dry, remove the current dressing in 24 hours. Remove the sutures in 7 days, there is 3 mattress sutures that need to be removed. The steri-strips will fall off on their own, do not pick, pull or apply any oil based products. She is to take keflex for the next 7 days to prevent infection. ED Follow Up Instructions: You have been treated by a care provider in the Emergency Department. These instructions are being provided to you so you can have an understanding of how to care for yourself upon discharge. Upon discharge from the Emergency Department, you are responsible for making arrangements for follow-up care by a physician of your choice. Take all prescribed medications as directed. Return to the Emergency Department immediately for any new or worsening symptoms. You may call the Physician Referral phone number at [phone] to obtain a list of Physicians who are taking new patients. Prescriptions: Cephalexin [Keflex] 500 mg PO BID #14 capsule Referrals: None,PCP [Primary Care Provider] - Instructions: Skin Tear Care, [id number], Contusion, [id number] Attestation - Physician/ MYLA Attestation Patient care was provided by Advanced Practice Provider:: Yes Advanced Practice Provider:: Cayden Jeronimo Advanced Practice Provider documentation review:: The Mid-level provider documentation, treatment plan and medical decision making was reviewed by the physician who agrees with all treatment and medical decision making by the MLP.
[2016-06-20 14:55] VITALS: BP 155/94
== END 2016-06-20 15:25 | disposition home or self-care (01) ==
LOC: EDBD → ED 11:24
DX: S61.411A Laceration without foreign body of right hand, initial encounter (principal); S60.221A Contusion of right hand, initial encounter; W22.8XXA Striking against or struck by other objects, initial encounter; E11.9 Type 2 diabetes mellitus without complications; Z79.899 Other long term (current) drug therapy; Z79.01 Long term (current) use of anticoagulants; Z79.4 Long term (current) use of insulin; Z79.82 Long term (current) use of aspirin

== ENCOUNTER 2016-07-11 11:39 | Inpatient (IN) ==
--- NOTE | 2016-07-11 14:30 | HISTORY AND PHYSICAL ---
CHIEF COMPLAINT: Altered mental status. HISTORY OF PRESENT ILLNESS: Ms. Mills is an 81-year-old female, who is a resident of [facility], was brought in to my office this morning for some testing and was found to have altered mental status. I spoke to patient's attendant who gave me a history of 2 days since she is having altered mental status. She has also been having severe cough. Patient is very sleepy and does not give me any history herself. PAST MEDICAL HISTORY: 1. Type 2 diabetes mellitus. 2. Chronic diastolic congestive heart failure. 3. Hypertension. 4. Dyslipidemia. 5. Hypothyroidism. 6. Chronic kidney disease. 7. Dementia. 8. History of stroke. 9. Bipolar disorder. PAST SURGICAL HISTORY: 1. Aortic valve replacement. 2. Partial colectomy for ischemic bowel disease. 3. Left hip replacement. SOCIAL HISTORY: Patient does not smoke any tobacco products nor does she drink alcohol. She is retired and lives with her at [facility]. FAMILY HISTORY: There is family history of heart disease, stroke, diabetes, high cholesterol and hypertension. ALLERGIES: No known drug allergies reported. CURRENT HOME MEDICATIONS: 1. Aspirin 81 mg orally once daily. 2. Carvedilol 6.25 mg 1-1/2 tablet twice daily. 3. Depakote ER 500 mg 2 tablets orally once daily at bedtime. 4. Cymbalta 30 mg orally once daily. 5. Famotidine 40 mg orally once daily. 6. Folic acid 1 mg orally once daily. 7. Furosemide 40 mg orally once daily in the morning and 0.5 mg orally once daily in the afternoon. 8. Humulin 70/30, 15 units in the morning subcutaneously and 10 units in the evening daily. 9. Vitamin B12 1000 mcg injection once a month intramuscularly. 10. Hydralazine 50 mg orally twice daily. 11. Levothyroxine 50 mcg orally once daily. 12. Nifedipine 30 mg orally 3 times a day. 13. Spironolactone 25 mg orally once daily in the morning. 14. Temazepam 15 mg orally once daily at bedtime as needed for insomnia. 15. Tramadol 50 mg twice daily as needed for pain. 16. Warfarin 2 mg once daily at bedtime on Tuesdays, and Saturdays and 4 mg once daily at bedtime on Mondays, Wednesdays, Fridays and Sundays. REVIEW OF SYSTEMS: A full review of system could not be obtained since patient is a poor historian and is having altered mental status. PHYSICAL EXAMINATION: GENERAL: Patient is awake but appears very drowsy. She does not appear to be in any acute distress otherwise. HEENT: Within normal limits. NECK: Supple without any thyromegaly. LYMPHATICS: No lymphadenopathy noted in the neck or axillary areas. RESPIRATORY SYSTEM: Normal respiratory effort noted. Bilateral lung air entry is good without any rales or rhonchi. CARDIOVASCULAR SYSTEM: First and second heart sounds are audible without any murmurs or gallops. There is no pedal edema. GASTROINTESTINAL: Abdomen is nondistended. It is soft and nontender on palpation and normal bowel sounds are present. MUSCULOSKELETAL SYSTEM: Patient has been wheelchair bound. Range of motion in most of the joints somewhat limited secondary to osteoarthritis. NEUROLOGIC: No focal deficits are present. PSYCHIATRIC: Normal affect noted. Patient appears to be very forgetful however. GENITOURINARY: Deferred. INTEGUMENTARY: Skin is warm, dry, and without any rash. IMPRESSION: Altered mental status with recently diagnosed urinary tract infection in this 81-year- old lady who has multiple comorbid conditions including type 2 diabetes mellitus , chronic diastolic congestive heart failure, hypertension, hypothyroidism, chronic kidney disease and dyslipidemia. PLAN: Patient will be admitted to the medical/surgical floor at [facility] and I am going to start her on levofloxacin 750 mg IV q.48 hours after getting blood and urine cultures. I am also going to get a CBC, CMP, magnesium levels, TSH, portable chest x-ray, ECG, urinalysis and PT/INR on admission. Would continue routine home medications and also give her lispro insulin subcutaneously as per sliding scale. Further recommendations will be given as per outcome of these initial orders. cc: MD SOPHIE Dubon
[2016-07-11 15:43] LABS: HEMATOCRIT 39.9 % (37.0-47.0); MCH 31.1 PG (27-31); MCHC 32.6 g/dL (33-37); MCV 95.5 FL (81-99); MPV 10.5 FL (7.4-10.4); RBC 4.18 XMIL (4.2-5.4)
--- NOTE | 2016-07-11 15:55 | Diag Imaging Result Document ---
PROCEDURE NAME: CHEST-PORTABLE - 07/11/2016 CHEST, SINGLE VIEW: INDICATION: Congestive heart failure. COMPARISON: 07/03/2016 and earlier. FINDINGS: There is cardiomegaly with median sternotomy wires. The pulmonary vasculature is not congested. There may be trace effusion at the left lung base. IMPRESSION: 1. Trace effusion left lung base. No focal consolidation. 2. Cardiomegaly.
[2016-07-11 16:01] LABS: INR 1.49 (0.86-1.15); PROTIME 18.3 Seconds (12.1-15.5)
[2016-07-11 16:06] LABS: ALBUMIN 3.6 g/dL (3.5-5.0); CALCIUM 9.1 mg/dL (8.8-10.2); POTASSIUM 4.2 mmol/L (3.5-5.1); TOTAL BILIRUBIN 0.3 mg/dL (0.20-1.00); TOTAL PROTEIN 6.3 g/dL (6.3-8.3)
[2016-07-11] MEDS ORDERED: CATAPRES PO PRN (16:06)
[2016-07-11] MEDS ORDERED: 1/2 NS 1,000 ML IV SCH (16:27)
--- NOTE | 2016-07-11 16:57 | EKG Report ---
Test Performed on : 07/11/2016 3:15:39 PM Test Reason : CHF Blood Pressure : / mmHG Vent. Rate : 089 BPM Atrial Rate : 089 BPM P-R Int : 182 ms QRS Dur : 086 ms QT Int : 402 ms P-R-T Axes : 055 057 150 degrees QTc Int : 489 ms Sinus rhythm. with premature atrial complexes. Anterior infarct , age undetermined Confirmed by Peng Botello MD ([id number]) on 07/14/2016 8:19:48 AM
[2016-07-11] MEDS ORDERED: LEVAQUIN 750 MG/D5W 750 MG/150 ML IVPB IV SCH (17:00)
[2016-07-11] MEDS: ADALAT CC PO SCH (18:37)
[2016-07-11] MEDS: HUMALOG DOSE (PARKWAY) SUBQ SCH ×2 (18:37→22:57)
[2016-07-11] MEDS: LIPITOR PO SCH (20:53)
[2016-07-11] MEDS: COREG PO SCH (20:53)
[2016-07-11] MEDS: ULTRAM PO PRN (20:53)
[2016-07-11] MEDS: RESTORIL PO PRN (20:53)
[2016-07-11] MEDS: APRESOLINE PO SCH (20:53)
[2016-07-11] MEDS ORDERED: COUMADIN PO SCH (21:00)
[2016-07-11] MEDS ORDERED: DEPAKOTE ER PO SCH (21:00)
[2016-07-12] MEDS: HUMALOG DOSE (PARKWAY) SUBQ SCH ×4 (06:15→21:23)
[2016-07-12] MEDS: FOLIC ACID PO SCH (09:55)
[2016-07-12] MEDS: COREG PO SCH ×2 (09:55→21:23)
[2016-07-12] MEDS: PEPCID PO SCH (09:55)
[2016-07-12] MEDS: ADALAT CC PO SCH ×3 (09:55→16:46)
[2016-07-12] MEDS: ALDACTONE PO SCH (09:56)
[2016-07-12] MEDS: APRESOLINE PO SCH ×2 (09:56→21:23)
[2016-07-12] MEDS: SYNTHROID PO SCH (09:56)
[2016-07-12] MEDS: LASIX PO SCH (09:56)
[2016-07-12] MEDS: ASPIRIN EC PO SCH (09:56)
[2016-07-12] MEDS: CYMBALTA PO SCH (09:56)
[2016-07-12] MEDS: 1/2 NS 1,000 ML IV SCH ×2 (12:24→13:35)
[2016-07-12 13:46] LABS: URINE SOURCE CLEAN CATCH
[2016-07-12 14:15] LABS: BILIRUBIN URINE NEGATIVE (NEGATIVE); BLOOD URINE TRACE (NEGATIVE); CLARITY SL. CLOUDY (CLEAR); COLOR YELLOW; GLUCOSE URINE NEGATIVE (NEGATIVE); LEUKOCYTES URINE 2+ (NEGATIVE); NITRITE URINE NEGATIVE (NEGATIVE); PROTEIN URINE 2+(100 mg/dL) mg/dL (NEGATIVE); SP GRAVITY URINE 1.005; URINE MICROSCOPIC NEEDED? YES; UROBILINOGEN URINE NORMAL
[2016-07-12 14:16] LABS: URINE EPITHELIAL CELLS <10 /HPF (<10); URINE RBC <10 /HPF (<10)
[2016-07-12 14:19] LABS: URINE WBC TNTC /HPF (<10)
[2016-07-12] MEDS ORDERED: TESSALON PO PRN (16:07)
[2016-07-12] MEDS: ULTRAM PO PRN (17:48)
[2016-07-12] MEDS ORDERED: COUMADIN PO SCH (21:00)
[2016-07-12] MEDS ORDERED: DEPAKOTE ER PO SCH (21:00)
[2016-07-12] MEDS: DEPAKOTE ER PO SCH (21:22)
[2016-07-12] MEDS: LIPITOR PO SCH (21:23)
[2016-07-12] MEDS: RESTORIL PO PRN (21:23)
[2016-07-13] MEDS: SYNTHROID PO SCH (06:45)
[2016-07-13] MEDS: HUMALOG DOSE (PARKWAY) SUBQ SCH ×4 (06:45→22:25)
[2016-07-13 07:24] LABS: CALCIUM 8.8 mg/dL (8.8-10.2); POTASSIUM 3.8 mmol/L (3.5-5.1)
[2016-07-13] MEDS: ADALAT CC PO SCH ×3 (09:16→16:56)
[2016-07-13] MEDS: APRESOLINE PO SCH ×2 (09:17→22:24)
[2016-07-13] MEDS: ALDACTONE PO SCH (09:17)
[2016-07-13] MEDS: COREG PO SCH ×2 (09:18→22:24)
[2016-07-13] MEDS: ASPIRIN EC PO SCH (09:18)
[2016-07-13] MEDS: CYMBALTA PO SCH (09:19)
[2016-07-13] MEDS: FOLIC ACID PO SCH (09:22)
[2016-07-13] MEDS: PEPCID PO SCH (09:24)
[2016-07-13] MEDS: LASIX PO SCH (09:24)
[2016-07-13 11:44] LABS: INR 1.27 (0.86-1.15); PROTIME 16.2 Seconds (12.1-15.5)
[2016-07-13] MEDS ORDERED: COUMADIN PO ONE ×2 (14:08→21:00)
[2016-07-13] MEDS ORDERED: LASIX IV ONE (17:30)
[2016-07-13] MEDS: ROCEPHIN 2 GM/NS 2 GM/50 ML IVPB IV SCH (17:45)
[2016-07-13] MEDS: LASIX IV ONE ×2 (17:45→17:46)
[2016-07-13] MEDS: LIPITOR PO SCH (22:24)
[2016-07-13] MEDS: DEPAKOTE ER PO SCH (22:25)
[2016-07-13] MEDS: 1/2 NS 1,000 ML IV SCH (23:01)
[2016-07-14] MEDS: SYNTHROID PO SCH (06:35)
[2016-07-14] MEDS: HUMALOG DOSE (PARKWAY) SUBQ SCH ×4 (06:35→21:07)
[2016-07-14 06:49] LABS: INR 1.55 (0.86-1.15); PROTIME 18.8 Seconds (12.1-15.5)
[2016-07-14 06:58] LABS: ALBUMIN 3.2 g/dL (3.5-5.0); CALCIUM 8.8 mg/dL (8.8-10.2); POTASSIUM 3.6 mmol/L (3.5-5.1); TOTAL BILIRUBIN 0.2 mg/dL (0.20-1.00); TOTAL PROTEIN 5.2 g/dL (6.3-8.3)
[2016-07-14 07:06] LABS: HEMATOCRIT 35.4 % (37.0-47.0); HEMOGLOBIN 11.9 g/dL (12.0-16.0); MANUAL DIFF NEEDED? YES; MCH 31.8 PG (27-31); MCHC 33.6 g/dL (33-37); MCV 94.7 FL (81-99); MPV 11.6 FL (7.4-10.4); PLT 211 X1000 (130-400); RBC 3.74 XMIL (4.2-5.4)
[2016-07-14 07:56] LABS: LYMPHS 21 % (21-51); MONO 10 % (1-9)
[2016-07-14] MEDS: PEPCID PO SCH (10:10)
[2016-07-14] MEDS: LASIX PO SCH (10:10)
[2016-07-14] MEDS: ADALAT CC PO SCH ×3 (10:10→17:22)
[2016-07-14] MEDS: FOLIC ACID PO SCH (10:11)
[2016-07-14] MEDS: ASPIRIN EC PO SCH (10:12)
[2016-07-14] MEDS: COREG PO SCH ×2 (10:12→21:07)
[2016-07-14] MEDS: CYMBALTA PO SCH (10:12)
[2016-07-14] MEDS: APRESOLINE PO SCH ×2 (10:13→21:07)
[2016-07-14] MEDS: ALDACTONE PO SCH (10:13)
[2016-07-14] MEDS ORDERED: STERILE WATER INJ. INJ ONE (11:32)
[2016-07-14] MEDS ORDERED: GEODON IM ONE (11:32)
[2016-07-14] MEDS: ROCEPHIN 2 GM/NS 2 GM/50 ML IVPB IV SCH (15:34)
[2016-07-14] MEDS: LIPITOR PO SCH (21:06)
[2016-07-14] MEDS: COUMADIN PO ONE (21:06)
[2016-07-14] MEDS: DEPAKOTE ER PO SCH (21:07)
[2016-07-15] MEDS: APRESOLINE PO SCH ×3 (02:34→21:26)
[2016-07-15] MEDS: COREG PO SCH ×3 (02:35→21:26)
[2016-07-15] MEDS: DEPAKOTE ER PO SCH ×3 (02:35→21:27)
[2016-07-15] MEDS: LIPITOR PO SCH ×2 (02:36→21:27)
[2016-07-15] MEDS: COUMADIN PO ONE (02:37)
[2016-07-15 05:44] LABS: MANUAL DIFF NEEDED? NO
[2016-07-15] MEDS: 1/2 NS 1,000 ML IV SCH (05:50)
[2016-07-15 05:54] LABS: BASO% 0.5 % (0.0-0.8); EOS# 0.21 X1000 (0.0-0.7); EOS% 3.3 % (0.0-10.0); HEMATOCRIT 36.5 % (37.0-47.0); HEMOGLOBIN 11.8 g/dL (12.0-16.0); IMM GRAN# 0.01 X1000 (0.0-0.04); IMM GRAN% 0.2 % (0.0-0.5); LYMPH# 1.37 X1000 (1.2-3.4); LYMPH% 21.8 % (20.5-51.1); MCH 30.7 PG (27-31); MCHC 32.3 g/dL (33-37); MCV 95.1 FL (81-99); MONO# 0.73 X1000 (0.11-0.59); MONO% 11.6 % (1.7-9.3); MPV 10.5 FL (7.4-10.4); NEUT% 62.6 % (42.2-75.2); PLT 197 X1000 (130-400); RBC 3.84 XMIL (4.2-5.4)
[2016-07-15 06:07] LABS: INR 1.79 (0.86-1.15)
[2016-07-15 06:13] LABS: CALCIUM 8.9 mg/dL (8.8-10.2); POTASSIUM 3.6 mmol/L (3.5-5.1)
[2016-07-15] MEDS: HUMALOG DOSE (PARKWAY) SUBQ SCH ×4 (06:42→20:34)
[2016-07-15] MEDS: SYNTHROID PO SCH (09:27)
[2016-07-15] MEDS: CYMBALTA PO SCH (09:28)
[2016-07-15] MEDS: LASIX PO SCH (09:28)
[2016-07-15] MEDS: PEPCID PO SCH (09:28)
[2016-07-15] MEDS: FOLIC ACID PO SCH (09:28)
[2016-07-15] MEDS: ASPIRIN EC PO SCH (09:29)
[2016-07-15] MEDS: ADALAT CC PO SCH ×3 (09:29→16:56)
[2016-07-15] MEDS: ALDACTONE PO SCH (09:29)
--- NOTE | 2016-07-15 14:49 | PROGRESS NOTE ---
DATE: 07/15/2016 SUBJECTIVE: Family members at the bedside, this patient is confused. She is able to recognize her , she knows her name but she is not oriented in time or place. She states that she lives at home with the and her mom and dad, As per the , her mom and her dad a long time ago. She denies any nausea, vomiting, no diarrhea, no constipation. Today she is complaining of mild cough. She has not been sleepy but she is confused. Probably this patient has a baseline dementia. OBJECTIVE: Vital Signs: Temperature 98.2 degrees, pulse 76, respiratory rate 18, blood pressure 156/86, oxygen saturation 96% on room air. HEENT: Head normocephalic. No trauma. PERRLA. Neck: Supple. No JVD. No masses. Central trachea. Chest: Clear to auscultation. No wheezing. No rales. Cardiovascular: RRR. Accentuated 2nd heart sound. Abdomen: Soft, mild tenderness to palpation at the level of the periumbilical area and suprapubic area. Extremities: No edema. No clubbing. No cyanosis. Neurological: The patient is alert. She is not oriented, she is able to recognize people, her . She is moving all 4 extremities and she is able to keep a conversation with a family member and with me. LABORATORY: WBC 6.2, hemoglobin 11.8, hematocrit 36.5, platelets 197,000. Sodium 138, potassium 3.6, chloride 106, bicarbonate 17, BUN 17, creatinine 1, glucose 205, calcium 8.9. ASSESSMENT AND PLAN: 1. Altered mental status, likely related to metabolic encephalopathy secondary to urinary tract infection, TSH is a little bit elevated, 5.89. I will ask for a T4 and I will monitor. 2. Type 2 diabetes. Her glucose has been around as low as 200, she received a total of 9 units for the past 24 hours. I will start this patient on Lantus 5, and I will monitor the blood sugar, and also I will ask for a hemoglobin A1c. 3. Hypertension. Continue with the same management for now. Her blood pressure is around 150s. We will monitor and we will adjust the medications accordingly. 4. Urinary tract infection. We have a positive result that showed gram-positive cocci, am not quite sure if this is a contaminant. I will repeat the urine culture and I will wait for the sensitivity. In the meantime apparently this patient is getting better. She is tolerating p.o., no leukocytosis, no fever, no chills. Blood cultures have been negative so far. 5. History of a stroke. Aware. 6. Bipolar disorder. Aware. 7. Hypothyroidism. Like I mentioned before, this patient's TSH is elevated. I will ask for a T4. At this moment this patient is on levothyroxine 50 mcg daily. Probably I will not increase the amount of levothyroxine, that the TSH has to be monitoring in a couple months. 8. Baseline dementia. Aware. 9. History of aortic valve replacement. Continue with warfarin. 10. Congestive heart failure. Continue with the same management. No CHF exacerbation at this moment. cc: MD Lowell Brewer MD
[2016-07-15] MEDS: ROCEPHIN 2 GM/NS 2 GM/50 ML IVPB IV SCH (15:05)
[2016-07-15] MEDS ORDERED: ZYPREXA PO SCH (21:00)
[2016-07-15] MEDS: COUMADIN PO SCH (21:27)
[2016-07-16] MEDS: 1/2 NS 1,000 ML IV SCH (05:43)
[2016-07-16 06:14] LABS: MANUAL DIFF NEEDED? NO
[2016-07-16 06:23] LABS: BASO% 0.6 % (0.0-0.8); EOS# 0.18 X1000 (0.0-0.7); EOS% 3.5 % (0.0-10.0); HEMATOCRIT 36.7 % (37.0-47.0); HEMOGLOBIN 11.7 g/dL (12.0-16.0); IMM GRAN# 0.01 X1000 (0.0-0.04); IMM GRAN% 0.2 % (0.0-0.5); LYMPH# 1.27 X1000 (1.2-3.4); LYMPH% 24.8 % (20.5-51.1); MCH 30.4 PG (27-31); MCHC 31.9 g/dL (33-37); MCV 95.3 FL (81-99); MONO# 0.61 X1000 (0.11-0.59); MONO% 11.9 % (1.7-9.3); MPV 10.5 FL (7.4-10.4); PLT 192 X1000 (130-400); RBC 3.85 XMIL (4.2-5.4)
[2016-07-16] MEDS: HUMALOG DOSE (PARKWAY) SUBQ SCH ×4 (06:31→21:50)
[2016-07-16] MEDS: SYNTHROID PO SCH (06:33)
[2016-07-16 06:39] LABS: AGAP 15; BUN 11 mg/dL (8-22); CALCIUM 8.7 mg/dL (8.8-10.2); CHLORIDE 107 mmol/L (98-107); COSMO 283; POTASSIUM 3.6 mmol/L (3.5-5.1); SODIUM 140 mmol/L (136-145); TCO2 18 mmol/L (25-35)
[2016-07-16 06:47] LABS: HEMOGLOBIN A1C 8.1 % (4.8-6.0)
[2016-07-16 06:56] LABS: INR 1.64 (0.86-1.15); PROTIME 19.6 Seconds (12.1-15.5)
[2016-07-16] MEDS: LANTUS INSULIN (PARKWAY) SUBQ SCH (07:59)
[2016-07-16] MEDS: FOLIC ACID PO SCH (10:24)
[2016-07-16] MEDS: ADALAT CC PO SCH ×3 (10:24→17:52)
[2016-07-16] MEDS: APRESOLINE PO SCH ×2 (10:25→22:33)
[2016-07-16] MEDS: ALDACTONE PO SCH (10:25)
[2016-07-16] MEDS: PEPCID PO SCH (10:25)
[2016-07-16] MEDS: CYMBALTA PO SCH (10:26)
[2016-07-16] MEDS: LASIX PO SCH (10:26)
[2016-07-16] MEDS: ASPIRIN EC PO SCH (10:26)
[2016-07-16] MEDS: DEPAKOTE ER PO SCH ×2 (10:26→22:35)
[2016-07-16] MEDS: COREG PO SCH ×2 (10:26→22:34)
--- NOTE | 2016-07-16 11:32 | Diag Imaging Result Document ---
PROCEDURE NAME: CHEST-PORTABLE - 07/16/2016 PORTABLE CHEST: Compared with 07/11/2016. FINDINGS: There is stable mild cardiomegaly. There are sternal wires from previous surgery again seen. There is hazy mild atelectasis or infiltrate at the left base. The remainder of the lungs appear essentially clear. There is no pleural effusion or pneumothorax identified. IMPRESSION: Mild atelectasis or infiltrate at the left base. No other acute changes.
--- NOTE | 2016-07-16 15:08 | PROGRESS NOTE ---
DATE: 07/16/2016 SUBJECTIVE: No family members at the bedside. The patient is still confused but compared with yesterday she is about the same. She has been coughing and I had a chest x-ray that showed mild atelectasis or infiltrate at the left base. No other acute changes. This patient has a baseline dementia as well. OBJECTIVE: Vital Signs: Temperature 97.7 degrees, pulse 79, respiratory rate 20, blood pressure 152/72, O2 saturation 98 on room air. HEENT: Head normocephalic. No trauma. PERRLA. Neck: Supple. No JVD. No masses. Central trachea. Chest: Clear to auscultation. No wheezing. No rales. Cardiovascular: RRR. Accentuated 2nd heart sounds. Abdomen: Soft, mild tenderness to palpation at the level of the periumbilical area. Extremities: No edema. No clubbing. No cyanosis. Neurological: The patient is alert. She is not oriented. Yesterday she was able to recognize her but today the is not here with us. She is moving all 4 extremities and she is able to keep a conversation with me now. Chest: Clear to auscultation, she has a mild decrease breath sounds of the level of the left lower lung with mild rhonchi. LABORATORY: WBC 5.1, hemoglobin 11.7, hematocrit 36.7, platelets 192,000. INR 1.6. Sodium 140, potassium 3.6, chloride 107, bicarbonate 18, BUN 11, creatinine 0.8, glucose 180, calcium 8.7. Hemoglobin A1c is 8.1. ASSESSMENT AND PLAN: 1. Altered mental status likely related to metabolic encephalopathy secondary to urinary tract infection. Probably this patient also had a pneumonia at the level of the left base. 2. Urinary tract infection. We have a positive urine culture that showed enterococcal faecium and also gram-positive cocci, Infectious Disease Department has been consulted. For now I will continue with ceftriaxone. 3. Type 2 diabetes. Her glucose has been between 180 and 200. I put this patient on Lantus 5 yesterday. I will continue with the same management for now. Her hemoglobin A1c is 8.1. 4. Hypertension. Continue with the same management. 5. Possible pneumonia. Continue with the same management. 6. History of stroke aware. 7. Bipolar disorder aware. 8. Hypothyroidism. Continue with the same treatment. 9. Baseline dementia aware. 10. History of aortic valve replacement. Continue with warfarin. 11. Congestive heart failure. Continue with the same management. No congestive heart failure exacerbation at this moment. cc: MD Lowell Brewer MD
[2016-07-16] MEDS: ROCEPHIN 2 GM/NS 2 GM/50 ML IVPB IV SCH (15:58)
[2016-07-16] MEDS ORDERED: NS 500 ML IV ONE (16:12)
[2016-07-16] MEDS: NS 1,000 ML IV SCH (16:50)
--- NOTE | 2016-07-16 17:42 | CONSULTATION ---
DATE OF CONSULTATION: 07/16/2016 CONCLUSION: This elderly female has a vancomycin-resistant enterococcal urinary tract infection. I think it is symptomatic and that the patient was admitted to the hospital with an altered mental status which may well have been caused by her urinary tract infection. The patient's was difficult to get a history from him about his because he had marked decreased hearing but he did mention she had been having urinary tract infection for weeks. RECOMMENDATIONS: I have placed the patient on daptomycin and I would suggest continuing daptomycin 500 mg IV daily for 3 weeks. A CPK, CBC and creatinine should be drawn every Sunday for 3 weeks. I have also ordered that a PICC should be placed and then should be removed after the last dose of daptomycin. I have also discontinued Lipitor which should not be given as long as the patient is on daptomycin in order to decrease the likelihood of muscle toxicity. DISCUSSION: The patient was unable provide a history. The was not much of a help because he is so hard of hearing. Most of the history was taken from review of the chart. The patient was admitted to the hospital because of an altered mental status. Her laboratory studies show a CBC with a white count of 5130, hemoglobin 11.7 and platelet count 192,000, creatinine 0.8. GFR is greater than 60. Liver function studies were normal. Urine culture grew vancomycin-resistant Enterococcus. The patient's blood culture was negative. I should mention that the urine culture that did grow vancomycin-resistant Enterococcus was drawn on July 11 the 1 drawn on July 15 did not grow anything as of yet, it may grow something because it is only 1 day old. REVIEW OF SYSTEMS: Unobtainable. PAST MEDICAL HISTORY: Positive for diabetes mellitus, congestive heart failure , hypertension, dyslipidemia, hypothyroidism, chronic kidney disease, dementia, and history of a stroke and bipolar disorder, osteoarthritis, ischemic bowel disease. PAST SURGICAL HISTORY: Is positive for aortic valve replacement, partial colectomy for ischemic bowel disease and left hip replacement. SOCIAL HISTORY: The patient does not smoke or drink alcohol. She is retired, she lives in an assisted an assisted living facility at [facility] however after discharge from the hospital she is going to be going to a rehab facility for 3 weeks. FAMILY HISTORY: Positive for heart disease, stroke, diabetes, hyperlipidemia and hypertension. ALLERGIES: The patient has no known drug allergies. HOME MEDICATIONS: Include aspirin, carvedilol, Depakote, Cymbalta, famotidine, folic acid, furosemide, insulin, vitamin B12, hydralazine, levothyroxine, nifedipine, spironolactone, temazepam, tramadol and Coumadin. PHYSICAL EXAMINATION: Vital Signs: Temperature is 97.7 degrees, pulse 79, respirations 20, blood pressure 152/72. She weighs 179 pounds. Generally: This is an ill- appearing elderly female. She is in no acute distress. Head, eyes, ears, nose, and throat: She can hear my she can hear my spoken words and see near objects. No drainage noted from the nose or ears. In the mouth there were no white patches on the tongue. Neck: No meningismus. Lungs : Clear to auscultation. Cardiovascular: Heart rate is regular. Peripheral pulses are palpable. There is bilateral leg edema. Abdomen: Soft and nontender. Neurologic: Patient is awake. She can move her extremities and did so to request. There is no tremor. Sensation is intact to touch. 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 Integument: No rash noted. Thank you for the consult. cc: MD Lowell Presley MD [facility]
[2016-07-16] MEDS: ZYPREXA ZYDIS PO SCH (21:50)
[2016-07-16] MEDS: COUMADIN PO SCH (22:34)
[2016-07-17 06:05] LABS: MANUAL DIFF NEEDED? NO
[2016-07-17] MEDS: HUMALOG DOSE (PARKWAY) SUBQ SCH ×4 (06:25→21:07)
[2016-07-17 06:27] LABS: BASO% 0.7 % (0.0-0.8); EOS# 0.23 X1000 (0.0-0.7); EOS% 4.1 % (0.0-10.0); HEMATOCRIT 35.5 % (37.0-47.0); HEMOGLOBIN 11.2 g/dL (12.0-16.0); IMM GRAN# 0.02 X1000 (0.0-0.04); IMM GRAN% 0.4 % (0.0-0.5); LYMPH# 1.63 X1000 (1.2-3.4); LYMPH% 29.3 % (20.5-51.1); MCH 30.4 PG (27-31); MCHC 31.5 g/dL (33-37); MCV 96.5 FL (81-99); MONO# 0.85 X1000 (0.11-0.59); MONO% 15.3 % (1.7-9.3); MPV 10.8 FL (7.4-10.4); NEUT% 50.2 % (42.2-75.2); PLT 194 X1000 (130-400); RBC 3.68 XMIL (4.2-5.4)
[2016-07-17 06:38] LABS: CALCIUM 8.4 mg/dL (8.8-10.2); POTASSIUM 3.5 mmol/L (3.5-5.1)
[2016-07-17 06:41] LABS: INR 1.45 (0.86-1.15); PROTIME 17.9 Seconds (12.1-15.5)
[2016-07-17] MEDS ORDERED: NS 500 ML ONE (08:02)
--- NOTE | 2016-07-17 08:17 | CONSULTATION ---
DATE OF CONSULTATION: 07/16/2016 ADDENDUM REPORT: I have written for the patient's daptomycin to be given when she is in the rehab facility. I wrote it on the pink order sheet. It had the following: Daptomycin 500 mg IV daily for 3 weeks. A CBC, a creatinine, and a CPK to be drawn every Sunday for 3 weeks and removal of the PICC when the daptomycin has been finished. I am available to see the patient on a p.r.n. basis, and I am signing off for now. cc: MD Lowell Presley MD
[2016-07-17] MEDS: ULTRAM PO PRN (08:46)
[2016-07-17] MEDS: ALDACTONE PO SCH (08:46)
[2016-07-17] MEDS: LANTUS INSULIN (PARKWAY) SUBQ SCH (08:46)
[2016-07-17] MEDS: SYNTHROID PO SCH (08:47)
[2016-07-17] MEDS: COREG PO SCH ×2 (08:47→21:06)
[2016-07-17] MEDS: LASIX PO SCH (08:47)
[2016-07-17] MEDS: APRESOLINE PO SCH ×2 (08:47→21:06)
[2016-07-17] MEDS: CYMBALTA PO SCH (08:48)
[2016-07-17] MEDS: ASPIRIN EC PO SCH (08:48)
[2016-07-17] MEDS: DEPAKOTE ER PO SCH ×2 (08:48→20:59)
[2016-07-17] MEDS: ADALAT CC PO SCH ×3 (08:48→17:36)
[2016-07-17] MEDS: FOLIC ACID PO SCH (09:05)
[2016-07-17] MEDS: PEPCID PO SCH (09:05)
--- NOTE | 2016-07-17 09:48 | PROGRESS NOTE ---
DATE: 07/17/2016 SUBJECTIVE: The patient is still confused, but she appears to be at baseline. Of note, she does have baseline dementia. OBJECTIVE: Vital Signs: Blood pressure is 180/80 with a heart rate of 103, respirations are 18, temperature is 97.3 oral with room air saturations of 99-100%. Cardiovascular: Regular rate and rhythm. S1 and S2 appreciated. Pulmonary: Breath sounds are clear with no increased work of breathing noted. Gastrointestinal: Abdomen is soft, nontender, nondistended with bowel sounds in all 4 quadrants. Extremities: No clubbing, cyanosis, or edema. Pulses are palpable x4. LABS: WBC is 5.5 with hemoglobin 11.2, hematocrit 35.5 and platelets of 194. Sodium is 141, potassium 3.5, BUN 15, creatinine 0.9, with a glucose of 143. INR is 1.45. ASSESSMENT AND PLAN: 1. Altered mental status. This could be related to metabolic encephalopathy secondary to her vancomycin-resistant enterococcus (VRE) urinary tract infection, as well as pneumonia, we will continue to follow. 2. Urinary tract infection. She has been seen by Dr. Laird in Infectious Disease. Daptomycin has been started. PICC line has been ordered. We are in the process of setting up home health and IV antibiotics. 3. Hypertension. Will continue with current regimen. 4. Diabetes type 2. We will continue with her current regimen. 5. Possible pneumonia, continue with pulmonary toilet as well as antibiotics. 6. History of stroke, aware. 7. Bipolar disorder, aware. 8. Hypothyroidism. We will continue with her current regimen. 9. History of aortic valve replacement. We will continue with warfarin with her having the target INR of 2.5. 10. Congestive heart failure. We are aware she is in no exacerbation at this time. Dictated by MATTHEW Barrera for Saud Mateo Miller MD cc: MATTHEW Barrera MD Addendum: I personally evaluated and examined the patient in conjunction to the P[employer]TY [employer] and agreed with her assessments and plans. Had a picc line in and will plan to dc to a rehab for 3 wks with IV abx. MTDD
--- NOTE | 2016-07-17 12:10 | Diag Imaging Result Document ---
PROCEDURE NAME: CHEST-PORTABLE - 07/17/2016 PORTABLE CHEST X-RAY, 07/17/2016: COMPARISON: 07/16/2016. FINDINGS: There is a left PICC line in good position with the catheter tip at the SVC. There is some stable hazy atelectasis at the left lung base. No new or focal infiltrates. Stable sternotomy wires. Heart size remains normal. IMPRESSION: New left PICC line. Otherwise, no change from prior.
[2016-07-17] MEDS ORDERED: LOVENOX SUBQ SCH (13:30)
[2016-07-17] MEDS: TESSALON PO SCH ×2 (13:38→20:59)
[2016-07-17] MEDS: NS 1,000 ML IV SCH (13:38)
[2016-07-17] MEDS: ROCEPHIN 2 GM/NS 2 GM/50 ML IVPB IV SCH (15:29)
[2016-07-17] MEDS: LOVENOX SUBQ SCH (17:36)
[2016-07-17] MEDS ORDERED: COUMADIN PO SCH ×2 (21:00)
[2016-07-17] MEDS: ZYPREXA ZYDIS PO SCH (21:06)
[2016-07-18] MEDS: TESSALON PO SCH ×2 (04:00→11:15)
[2016-07-18 05:53] LABS: HEMATOCRIT 36.2 % (37.0-47.0); HEMOGLOBIN 11.6 g/dL (12.0-16.0); MCH 30.4 PG (27-31); MPV 10.7 FL (7.4-10.4); RBC 3.81 XMIL (4.2-5.4)
[2016-07-18 06:08] LABS: INR 1.4 (0.86-1.15); PROTIME 17.4 Seconds (12.1-15.5)
[2016-07-18] MEDS: LOVENOX SUBQ SCH (06:20)
[2016-07-18] MEDS: HUMALOG DOSE (PARKWAY) SUBQ SCH ×3 (06:20→15:55)
[2016-07-18 06:39] LABS: AGAP 16; BUN 10 mg/dL (8-22); CALCIUM 8.6 mg/dL (8.8-10.2); CHLORIDE 110 mmol/L (98-107); COSMO 288; POTASSIUM 3.4 mmol/L (3.5-5.1); SODIUM 142 mmol/L (136-145); TCO2 16 mmol/L (25-35)
--- NOTE | 2016-07-18 07:23 | Extremity Venous Study ---
PROCEDURE NAME: Venous U/S Bilateral Legs - 07/17/2016 COMPARISON: None. FINDINGS: The right peroneal vein is noncompressible with absent flow. This appears to be completely occluded with thrombosis. All the other veins are compressible with normal color Doppler and pulse wave Doppler signal. There is note of a right Ibrahim cyst in the popliteal fossa. This measures about 3.8 x 1.9 cm. IMPRESSION: 1. Deep venous thrombosis of the right peroneal vein. 2. Right Ibrahim cyst.
[2016-07-18] MEDS: NS 1,000 ML IV SCH (08:43)
[2016-07-18] MEDS: LASIX PO SCH (08:44)
[2016-07-18] MEDS: SYNTHROID PO SCH (08:44)
[2016-07-18] MEDS: COREG PO SCH (08:44)
[2016-07-18] MEDS: PEPCID PO SCH (08:44)
[2016-07-18] MEDS: CYMBALTA PO SCH (08:44)
[2016-07-18] MEDS: APRESOLINE PO SCH (08:44)
[2016-07-18] MEDS: ADALAT CC PO SCH (08:44)
[2016-07-18] MEDS: ASPIRIN EC PO SCH (08:44)
[2016-07-18] MEDS: FOLIC ACID PO SCH (08:44)
[2016-07-18] MEDS: ALDACTONE PO SCH (08:44)
[2016-07-18] MEDS: DEPAKOTE ER PO SCH (08:45)
[2016-07-18] MEDS: LANTUS INSULIN (PARKWAY) SUBQ SCH (08:45)
[2016-07-18] MEDS ORDERED: POTASSIUM CHLORIDE 40 MEQ/SWI 40 MEQ/100 ML IVPB IV ONE (08:56)
[2016-07-18] MEDS ORDERED: ADALAT CC PO SCH (09:00)
[2016-07-18] MEDS ORDERED: COREG PO SCH (09:00)
--- NOTE | 2016-07-18 11:21 | DISCHARGE SUMMARY ---
ADMISSION DATE: 07/11/2016 DISCHARGE DATE: 07/18/2016 DIAGNOSES: 1. Altered mental status likely secondary to urinary tract infection, resolved. 2. Enterococcus faecium group D urinary tract infection, currently on daptomycin. 3. Diabetes type 2. 4. Hypertension. 5. History of cerebrovascular accident. 6. Bipolar disorder. 7. Hypothyroid. 8. Baseline dementia. 9. History of aortic valve replacement, currently on warfarin with a target INR of 2.5 to 3.5. 10. History of congestive heart failure with no exacerbation. DIAGNOSTICS: 1. 07/11/2016: Chest x-ray revealed trace effusion in left lung base. No focal consolidation. Cardiomegaly. 2. 07/16/2016: Chest x-ray revealed mild atelectasis or infiltrate at the left base. 3. 07/17/2016: Chest x-ray revealed PICC line is in good position with the catheter tip at the SVC. Some hazy atelectasis remains at the left lung base. No new or focal infiltrates. 4. 07/17/2016: Lower extremity venous Doppler revealed deep vein thrombosis in the right perineal pain with a right Ibrahim's cyst. CONSULTATION: Dr. Marvin Laird of infectious disease. MICROBIOLOGY: 1. Enterococcus faecium group D urine 07/11/2016. 2. Blood cultures x2: No growth after 5 days. 3. Repeat blood culture 07/15/2016 reveals no growth. Of note, patient is on IV antibiotics. HOSPITAL COURSE: Ms Mills presented to the emergency room with altered mental status for approximately 2 days with a cough. She was found to have an Enterococcus UTI for which she was treated with Rocephin. She was evaluated by Dr. Marvin Laird with recommendation and orders for IV antibiotics of daptomycin daily for 3 weeks with labs drawn every Sunday and call to Dr. Laird. PICC line was placed, which she tolerated well. The patient did complain of lower extremity edema and some right calf pain. Lower extremity Doppler was performed and she was found to have occlusion of the right peroneal vein. She does have good pedal pulses. as well as capillary refill. The patient does have a history of a mechanical valve replacement. She is on home warfarin. During the hospitalization, her INR has ranged from 1.4 to 1.79. The stated that she is followed by the [facility] in [place], although he is unaware of her normal dosage of warfarin, what her INR's have been running or what her target INR is. She was started on a Lovenox bridge on the . Warfarin dose was increased with daily INR's ordered to be drawn and called to the facility medical assistant supervisor for further orders of warfarin dosing and Lovenox to be continued until the facility medical assistant supervisor discontinues. We did follow her blood sugars; they did range from 190s to the 240s. She did have a hemoglobin A1c of 8.1. Of note, she is noncompliant with her diet being a very picky eater and evidently the and family supplement with anything they can get the patient to eat at the present time. PHYSICAL EXAMINATION: Cardiovascular: Regular rate and rhythm. S1 and S2 are appreciated. Mechanical valve click is crisp. Pulmonary: Breath sounds are clear with no increased work of breathing noted. Gastrointestinal: Soft, nontender, nondistended with bowel sounds in all 4 quadrants. Extremities: No clubbing or cyanosis. She does have some pretibial edema bilateral with pulses palpable x4. DISCHARGE VITAL SIGNS: Blood pressure is 160/69 with a heart rate of 104, respirations are 18, temperature is 97.5 degrees oral with room air saturation of 95% to 99%. DISCHARGE ACTIVITY: Will be per physical therapy and facility protocol. DISCHARGE DIET: Diet with Glucerna shakes with each meal. DISCHARGE MEDICATIONS: 1. Aspirin 81 mg daily. 2. Restoril 15 mg at bedtime p.r.n. 3. Tramadol 50 mg p.o. b.i.d. p.r.n. 4. Atorvastatin 40 at bedtime. 5. Insulin 70/30 Quick Pen 10 units q.p.m. 6. Spironolactone 25 mg daily. 7. Insulin 70/30, Quick Pen 15 units q.a.m. 8. Furosemide 40 daily. 9. Folic acid 1 daily. 10. Pepcid 40 daily. 11. Celebrex 200 mg daily. 12. Duloxetine Hydrochloride 30 daily. 13. Synthroid 50 mcg before breakfast. 14. Coumadin 5 mg p.o. at bedtime. 15. Zyprexa 5 at bedtime. 16. Nifedipine 90 daily. 17. Hydralazine 75 q. 8 hours. 18. Lovenox 80 mg q. 12 hours until discontinued by the facility director. 19. Depakote ER 500 mg b.i.d. 20. Coreg 12.5 q. 12 hours. 21. Tessalon Perles 200 mg q. 8 hours p.r.n. cough. ISOLATION: She has been on VRE precautions. DISPOSITION: She is being discharged to rehab in stable condition with family members present at bedside. She will go by EMS. TIME SPENT: This is a greater than 30 minute discharge. Dictated by MATTHEW Barrera for Saud Mateo Miller MD cc: MATTHEW Barrera MD Addendum: I personally evaluated and examined the patient in conjunction to the OCCUPATIONAL THERAPIST REHAB MANAGER and agreed with her assessments and disposition. All questions were invited and entertained regarding the discharge. SOPHIE
[2016-07-18] MEDS ORDERED: APRESOLINE PO SCH (13:00)
[2016-07-18] MEDS: ROCEPHIN 2 GM/NS 2 GM/50 ML IVPB IV SCH (15:30)
[2016-07-18 15:37] VITALS: BP 137/64
== END 2016-07-18 16:20 ==
LOC: SUATTDRO 11:39 → P.DIRADM 11:39 → P.MEDSURG 14:03
PROVIDERS: ADMIT Internal Medicine; ATTEND Internal Medicine

== ENCOUNTER 2016-09-08 12:42 | Inpatient (IN) ==
[2016-09-08] MEDS ORDERED: NS 1,000 ML IV SCH (13:06)
--- NOTE | 2016-09-08 13:44 | Diag Imaging Result Doc PS360 ---
EXAM: HEAD W/O CONTRAST HISTORY: mental status change TECHNIQUE: COMPARISON: 07/03/2016 FINDINGS: No parenchymal hemorrhage. No epidural or subdural hematoma. No subarachnoid hemorrhage. No mass identified on this noncontrasted exam. No hydrocephalus. Mild atrophy. No sinus opacification. IMPRESSION: No hemorrhage. Atrophy, but otherwise negative brain CT without contrast. Electronically signed by Luis Mcmanus 09/08/2016 1:41 PM
--- NOTE | 2016-09-08 13:49 | Diag Imaging Result Doc PS360 ---
EXAM: CHEST-1 VIEW HISTORY: fever TECHNIQUE: COMPARISON: 07/17/2016 FINDINGS: The lungs are well expanded. The heart is not enlarged. The vessels are not distended. There are no infiltrates. No effusion identified. There are sternal wires. IMPRESSION: Negative exam.. Electronically signed by Luis Mcmanus 09/08/2016 1:47 PM
--- NOTE | 2016-09-08 14:03 | EKG Report ---
Test Performed on : 09/08/2016 12:48:21 PM Test Reason : ams Blood Pressure : / mmHG Vent. Rate : 120 BPM Atrial Rate : 120 BPM P-R Int : 156 ms QRS Dur : 076 ms QT Int : 272 ms P-R-T Axes : 041 043 157 degrees QTc Int : 384 ms Sinus tachycardia. Possible Left atrial enlargement ST \T\ T wave abnormality, consider inferolateral ischemia Abnormal ECG When compared with ECG of 11-JUL-2016 15:15, premature atrial complexes. are no longer present T wave inversion more evident in Anterolateral leads Unconfirmed Result
[2016-09-08 14:21] LABS: INR 1.75; PROTIME 19.1 Seconds (9.2-11.7)
[2016-09-08 14:24] LABS: BASO% 0.1 % (0.0-0.8); EOS# 0.01 X1000 (0.0-0.7); EOS% 0.1 % (0.0-10.0); HEMATOCRIT 37.8 % (37.0-47.0); HEMOGLOBIN 12.2 g/dL (12.0-16.0); IMM GRAN# 0.03 X1000 (0.0-0.04); IMM GRAN% 0.2 % (0.0-0.5); LYMPH% 4.2 % (20.5-51.1); MANUAL DIFF NEEDED? NO; MCH 30.5 PG (27-31); MCHC 32.3 g/dL (33-37); MCV 94.5 FL (81-99); MONO# 0.75 X1000 (0.11-0.59); MONO% 5.3 % (1.7-9.3); MPV 11.2 FL (7.4-10.4); NEUT% 90.1 % (42.2-75.2); PLT 299 X1000 (130-400)
[2016-09-08 14:32] LABS: ALBUMIN 3.5 g/dL (3.5-5.0); CALCIUM 9.4 mg/dL (8.8-10.2); TOTAL BILIRUBIN 0.39 mg/dL (0.20-1.00); TOTAL PROTEIN 6.8 g/dL (6.3-8.3)
--- NOTE | 2016-09-08 16:12 | HISTORY AND PHYSICAL ---
HISTORY OF PRESENT ILLNESS: Ms. Mills apparently is at the senior care. She was doing well, tolerating rehab, was alert and oriented. In the last 2 days, particularly today, she is confused. She does not recognize her sons. She has 2 sons that give me the history. Apparently, they have treated her for recurrent urinary tract infections. She was at [facility] not too long ago. She does see Dr. Stewart. They did not note any fever or chills, but just this drastic change in her mental status. She is more lethargic. She does not appear to have pain. Does not appear to have any focal neurologic deficits. PAST MEDICAL HISTORY: 1. Diabetes mellitus, type 2. 2. Chronic diastolic congestive heart failure. 3. Hypertension. 4. Dyslipidemia. 5. Hypothyroidism. 6. Chronic kidney disease. 7. Dementia. 8. History of stroke. 9. Bipolar disorder. PAST SURGICAL HISTORY: 1. Aortic valve replacement. 2. Partial colectomy for ischemic bowel disease. 3. Left hip surgery. SOCIAL HISTORY: The patient does not smoke or have a history of tobacco products nor does she drink alcohol. She is retired and lives with her . She was living with her at [facility]. Recently had been at [facility] for rehab after treatment for a urinary tract infection. FAMILY HISTORY: There is a family history of heart disease, stroke, diabetes, high cholesterol, hypertension. ALLERGIES: No known drug allergies. CURRENT MEDICATIONS: Reviewed and listed She is on Coumadin. She does take Depakote, Cymbalta. She is on levothyroxine. She is taking tramadol as well. PHYSICAL EXAMINATION: VITAL SIGNS: Temperature was 102 degrees, pulse was 129, respirations 20, blood pressure 150/98. HEENT: Her pupils appear equal. CVP less than 6 cm. Mucous membranes dry. Conjunctivae and oral mucosa otherwise unremarkable. NECK: Appears supple. LUNGS: Clear in all lung barrow. CARDIOVASCULAR: Regular rhythm and rate without murmur or S3. ABDOMEN: Soft. SKIN: Warm and dry. I did not see any pedal edema. Height is 5 feet 7 inches. Weight 170 pounds. LABORATORY DATA: White blood cell count 14,130. Hematocrit 37, platelet count 299,000. Sodium 129, potassium 4.0, chloride 94, bicarb 18, BUN 25, creatinine 1.6. Blood sugar 373. ProTime 19.1. INR 1.75. LIST OF HER MEDICATIONS: 1. Aspirin 81 mg a day. 2. Coreg 12.5 mg q.12. 3. Celebrex 200 mg a day. 4. Vitamin B12 1000 mcg injection, I think. I am guessing that is once a month. 5. Duloxetine 30 mg daily. 6. Famotidine 40 mg a day. 7. Folic acid 1 mg daily. 8. Furosemide 40 mg a day. 9. Hydroxyzine 75 mg p.o. q. 8 hours. 10. She takes insulin 70/37, 15 units in the morning 10 units in the evening. 11. Nifedipine ER 90 mg daily. 12. Coumadin 2 mg a day. Note her ProTime is 19. ASSESSMENT AND PLAN: 1. Altered mental status. Labs fairly unremarkable. White count is a little elevated. Waiting on urine. She has been treated for a urinary tract infection and recently had some, and we will see if we can obtain those cultures. She had some blood cultures obtained and urine cultures obtained. She has no known drug allergies, so we will cover for gram negative, and I guess we will have to cover depending on what culture shows for extended spectrum depending on what she has had in the past. I think for now, we will try Zosyn and give her 3.375 mg q. 6 hours. 2. She does appear a little dry. Creatinine was 1.6 but I see previously in July she had a creatinine of 0.7 and 0.9, so I think this probably represents prerenal. She does look like she contracted so we will give her some normal saline. 3. Mild hyponatremia, aware. 4. Acute kidney injury as noted above. Suspect mainly prerenal. 5. Underlying dementia. 6. Because of her metabolic encephalopathy, I do not see any focal neurologic deficits. I am going to try and hold any nonessential medications at this point. I do not see any evidence of stroke, but I do think that she probably has multifactorial global encephalopathy. We will follow her ProTime while she is here. Note: She is a patient of Dr. Stewart, so we will admit to his service, and I have discussed the patient. He understands she is being admitted. cc: Rebel Welsh MD
[2016-09-08] MEDS ORDERED: ZOFRAN IV PRN (17:31)
[2016-09-08] MEDS: APRESOLINE PO SCH ×2 (19:40→19:51)
[2016-09-08] MEDS: ZOSYN 3.375 GM/NS 3.375 GM/50 ML IVPB IV SCH (19:41)
[2016-09-08] MEDS: COREG PO SCH (20:24)
[2016-09-08] MEDS: COUMADIN PO SCH (20:24)
[2016-09-08] MEDS ORDERED: NS 1,000 ML IV ONE (21:00)
[2016-09-09] MEDS: ZOSYN 3.375 GM/NS 3.375 GM/50 ML IVPB IV SCH ×6 (00:07→22:39)
[2016-09-09] MEDS: APRESOLINE PO SCH ×3 (03:55→19:34)
[2016-09-09 06:10] LABS: MANUAL DIFF NEEDED? NO
[2016-09-09 06:15] LABS: BASO% 0.2 % (0.0-0.8); EOS% 0.5 % (0.0-10.0); HEMATOCRIT 33.8 % (37.0-47.0); HEMOGLOBIN 10.9 g/dL (12.0-16.0); IMM GRAN% 0.2 % (0.0-0.5); LYMPH% 9.1 % (20.5-51.1); MCH 30.9 PG (27-31); MCHC 32.2 g/dL (33-37); MCV 95.8 FL (81-99); MONO% 8.9 % (1.7-9.3); MPV 10.9 FL (7.4-10.4); NEUT% 81.1 % (42.2-75.2); PLT 226 X1000 (130-400); RBC 3.53 XMIL (4.2-5.4)
[2016-09-09 06:16] LABS: EOS# 0.05 X1000 (0.0-0.7); IMM GRAN# 0.02 X1000 (0.0-0.04); LYMPH# 0.88 X1000 (1.2-3.4); MONO# 0.86 X1000 (0.11-0.59)
[2016-09-09 06:27] LABS: ALBUMIN 2.9 g/dL (3.5-5.0); POTASSIUM 3.7 mmol/L (3.5-5.1); TOTAL BILIRUBIN 0.36 mg/dL (0.20-1.00)
[2016-09-09] MEDS: PRILOSEC PO SCH (06:45)
[2016-09-09 06:53] LABS: URINE MICRO REVIEW NEEDED? NO; URINE SOURCE CATH
[2016-09-09 06:56] LABS: BILIRUBIN URINE NEGATIVE (NEGATIVE); BLOOD URINE MODERATE (NEGATIVE); COLOR YELLOW; GLUCOSE URINE 300 mg/dL (NEGATIVE); LEUKOCYTES URINE MODERATE (NEGATIVE); NITRITE URINE NEGATIVE (NEGATIVE); PH URINE 6.5; PROTEIN URINE 50 mg/dL (NEGATIVE); SP GRAVITY URINE 1.017; TURBIDITY URINE CLEAR (CLEAR); UR EPITHELIAL CELLS <10 /HPF (<10); URINE BACTERIA NEGATIVE /HPF; URINE RBC <10 /HPF (<10); UROBILINOGEN URINE NORMAL (NORMAL)
[2016-09-09 07:27] LABS: INR 1.35; PROTIME 14.5 Seconds (9.2-11.7); PTT 46.8 Seconds (22.0-36.0)
[2016-09-09] MEDS: CYMBALTA PO SCH (09:29)
[2016-09-09] MEDS: TYLENOL PO PRN ×3 (09:29→22:39)
[2016-09-09] MEDS: COREG PO SCH ×2 (09:29→22:39)
[2016-09-09] MEDS: ASPIRIN EC PO SCH (09:31)
[2016-09-09] MEDS: FOLIC ACID PO SCH (09:31)
[2016-09-09] MEDS: ADALAT CC PO SCH (09:31)
[2016-09-09] MEDS: HUMULIN 70/30 SUBQ SCH ×2 (11:57→12:00)
[2016-09-09] MEDS: XANAX PO PRN ×2 (15:59→22:39)
[2016-09-09] MEDS: HUMALOG SUBQ SCH ×2 (16:00→22:39)
[2016-09-09] MEDS: NS 1,000 ML IV SCH (20:43)
[2016-09-09] MEDS: COUMADIN PO SCH (22:39)
[2016-09-10] MEDS: APRESOLINE PO SCH ×3 (02:22→18:35)
[2016-09-10] MEDS: ZOSYN 3.375 GM/NS 3.375 GM/50 ML IVPB IV SCH ×3 (04:43→18:33)
[2016-09-10] MEDS: NS 1,000 ML IV SCH ×2 (04:44→10:05)
[2016-09-10] MEDS: HUMALOG SUBQ SCH ×5 (06:03→21:36)
[2016-09-10] MEDS: TYLENOL PO PRN (06:04)
[2016-09-10] MEDS: PRILOSEC PO SCH (06:04)
[2016-09-10 06:57] LABS: INR 1.37; PROTIME 14.7 Seconds (9.2-11.7)
[2016-09-10] MEDS: ASPIRIN EC PO SCH (09:54)
[2016-09-10] MEDS: ADALAT CC PO SCH (09:54)
[2016-09-10] MEDS: CYMBALTA PO SCH (09:54)
[2016-09-10] MEDS: COREG PO SCH ×2 (10:07→21:34)
[2016-09-10] MEDS: FOLIC ACID PO SCH (10:07)
[2016-09-10] MEDS ORDERED: COUMADIN PO ONE (13:27)
[2016-09-10] MEDS: COUMADIN PO SCH (21:34)
[2016-09-10] MEDS: NORCO-5 PO PRN (21:34)
[2016-09-10] MEDS: XANAX PO PRN (21:34)
[2016-09-11] MEDS: NORCO-5 PO PRN ×3 (02:22→18:47)
[2016-09-11] MEDS: XANAX PO PRN (02:22)
[2016-09-11] MEDS: ZOSYN 3.375 GM/NS 3.375 GM/50 ML IVPB IV SCH ×5 (03:47→23:40)
[2016-09-11] MEDS: NS 1,000 ML IV SCH ×3 (03:48→18:02)
[2016-09-11] MEDS: APRESOLINE PO SCH ×4 (04:54→16:44)
[2016-09-11] MEDS: TYLENOL PO PRN (06:37)
[2016-09-11] MEDS: PRILOSEC PO SCH (06:37)
[2016-09-11] MEDS: HUMALOG SUBQ SCH ×4 (06:41→22:10)
[2016-09-11 06:52] LABS: INR 2.44; PROTIME 27.1 Seconds (9.2-11.7)
[2016-09-11] MEDS: FOLIC ACID PO SCH (09:22)
[2016-09-11] MEDS: ASPIRIN EC PO SCH (09:22)
[2016-09-11] MEDS: ADALAT CC PO SCH (09:22)
[2016-09-11] MEDS: CYMBALTA PO SCH (09:22)
[2016-09-11] MEDS: COREG PO SCH ×2 (09:23→22:09)
--- NOTE | 2016-09-11 17:42 | Diag Imaging Result Doc PS360 ---
EXAM: MRI LOWER EXT W/WO CON-LEFT INDICATION: L heel osteomyelitis COMPARISON: None. FINDINGS: There is soft tissue edema and enhancement at the plantar aspect of the heel suggesting cellulitis. However, there is no discrete soft tissue abscess. There is also no underlying marrow signal abnormality to indicate osteomyelitis. There is soft tissue edema diffusely around the ankle. The tendinous structures are grossly intact. IMPRESSION: Soft tissue edema around the ankle that is most prominent at the heel where there also appears to be some degree of enhancement indicating cellulitis. However, there is no well-defined abscess and there is no evidence of osteomyelitis. Electronically signed by Hero Medina 09/11/2016 5:39 PM
--- NOTE | 2016-09-11 18:04 | CONSULTATION ---
DATE OF CONSULTATION: 09/11/2016 CONCLUSION: The patient was admitted to the hospital with an altered mental status. The cause of this is uncertain to me at this time. She has a strong history of urinary tract infections and her urinalysis did show white cells; however, thus far the urine culture is negative. She also has an infection on her left heel. I am uncertain as to how long she has had it and whether it is causing the patient's change in mental status. In any event, today the patient seems to be back to her usual state of mind. She was unable to provide a history for me and her was there, but he too could not provide a history for me. The patient's history is taken by review of the data in the computer. The patient as mentioned above has an altered mental status. She has been admitted to the hospital. She is receiving antibiotics and today her mental status is coming back to what it normally was. She does have an infection on her left heel. I am not sure how long it has been there. Her CBC yesterday was 14,000, today it was 9630, hemoglobin is 10.9, and platelet count is 226,000. Liver function studies are normal. Urinalysis showed white cells, but no bacteria. Thus far, blood and urine cultures are sterile. CT scan of the head showed atrophy. Chest x-ray was clear. I looked in the computer and reviewed her past infections. They were all in the urinary tract and the organisms responsible were Klebsiella, enterococcus , Pseudomonas and Proteus. I cannot find any culture that grew methicillin-resistant Staph aureus. The patient's creatinine is 1.1. The GFR is 48. Liver function studies are normal. PAST MEDICAL HISTORY: According to the chart, the patient's is positive for diabetes mellitus, congestive heart failure, hypertension, hyperlipidemia, hypothyroidism, chronic kidney disease, dementia, history of a stroke and bipolar disorder. PAST SURGICAL HISTORY: Positive for aortic valve replacement, partial colectomy for ischemic bowel disease and left hip surgery. SOCIAL HISTORY: The patient does not smoke or drink alcoholic beverages. She is retired and lives with her at [facility]. The patient recently had been at [facility] for rehab after treatment for a urinary tract infection. FAMILY HISTORY: Positive for heart disease, stroke, diabetes mellitus, elevated cholesterol and hypertension. ALLERGIES: The patient has no known drug allergies. HOME MEDICATIONS: She is on Coumadin, nifedipine, insulin, hydralazine, furosemide, folic acid, famotidine, duloxetine, cyanocobalamin injections. Patient also has Celebrex, Coreg and aspirin. PHYSICAL EXAMINATION: Vital Signs: Temperature is 97.3 degrees, pulse 84, respirations 18, blood pressure 162/48. Generally: This is an ill-appearing, elderly female. She is in no acute distress. Head, eyes, ears, nose, and throat: She can hear my spoken words and see near objects. No drainage is noted from the nose or ears. Neck: No meningismus. Thorax: No increased AP diameter of the chest. Lungs: Clear to auscultation. Cardiovascular: Regular heart rate. Abdomen: Soft and nontender. Neurologic: Patient is awake. I asked her questions and she started talking and then soon drifted off to sleep. There was no tremor. Integument: No rash was noted. Extremities: L heel is ulcerated and erythematous. Thank you for the consultation. cc: MD Lowell Presley MD MTDD
[2016-09-12] MEDS: APRESOLINE PO SCH ×2 (04:28→09:14)
[2016-09-12] MEDS: ZOSYN 3.375 GM/NS 3.375 GM/50 ML IVPB IV SCH ×2 (05:13→12:21)
[2016-09-12] MEDS: NS 1,000 ML IV SCH ×2 (05:20→11:22)
[2016-09-12] MEDS: PRILOSEC PO SCH (06:08)
[2016-09-12] MEDS: HUMALOG SUBQ SCH ×2 (06:26→11:22)
[2016-09-12 06:28] LABS: MANUAL DIFF NEEDED? NO
[2016-09-12 06:37] LABS: BASO% 0.6 % (0.0-0.8); EOS# 0.18 X1000 (0.0-0.7); EOS% 2.8 % (0.0-10.0); HEMATOCRIT 35.8 % (37.0-47.0); HEMOGLOBIN 11.3 g/dL (12.0-16.0); IMM GRAN# 0.04 X1000 (0.0-0.04); IMM GRAN% 0.6 % (0.0-0.5); LYMPH# 0.95 X1000 (1.2-3.4); LYMPH% 14.6 % (20.5-51.1); MCH 30.5 PG (27-31); MCHC 31.6 g/dL (33-37); MCV 96.8 FL (81-99); MONO# 0.66 X1000 (0.11-0.59); MONO% 10.2 % (1.7-9.3); MPV 10.9 FL (7.4-10.4); NEUT% 71.2 % (42.2-75.2); PLT 282 X1000 (130-400)
[2016-09-12 06:51] LABS: INR 3.62; PROTIME 41.3 Seconds (9.2-11.7)
[2016-09-12 07:08] LABS: AGAP 16; BUN 7 mg/dL (8-22); CALCIUM 8.7 mg/dL (8.8-10.2); CHLORIDE 107 mmol/L (98-107); COSMO 280; POTASSIUM 3.4 mmol/L (3.5-5.1); SODIUM 140 mmol/L (136-145); TCO2 17 mmol/L (25-35)
[2016-09-12] MEDS: CYMBALTA PO SCH (09:14)
[2016-09-12] MEDS: COREG PO SCH (09:14)
[2016-09-12] MEDS: FOLIC ACID PO SCH (09:14)
[2016-09-12] MEDS: ADALAT CC PO SCH (09:14)
[2016-09-12] MEDS: ASPIRIN EC PO SCH (09:14)
[2016-09-12 09:37] VITALS: BP 165/67
--- NOTE | 2016-09-12 13:13 | DISCHARGE SUMMARY ---
ADMISSION DATE: 09/08/2016 DISCHARGE DATE: 09/12/2016 DISCHARGE DIAGNOSES: 1. Altered mental status secondary to metabolic encephalopathy secondary to urinary tract infection and left foot cellulitis. 2. Hyponatremia that has improved. 3. Acute kidney injury secondary to prerenal azotemia that was because of dehydration that has also improved. 4. Hypertension. That has been stable. 5. History of CVA with no acute episode. HOSPITAL COURSE: Ms. Mills was brought in from [facility] where she was there for rehab and was found to have altered mental status. She was brought in to the emergency room where she was diagnosed as having urinary tract infection causing metabolic encephalopathy. She was admitted to the hospital and was started on IV Zosyn. She was also having dehydration and therefore, was given IV fluids. Her condition gradually improved. She also has had mild hyponatremia that resolved spontaneously. The patient has history of CVA but her CT scan was negative for any bleed since she has been on warfarin and we were concerned about that. She does not seem to have any acute cerebrovascular event at this time however. Since patient's condition has improved she is going to be discharged home today. It should be noted that her INR is above therapeutic at 3.62 this morning but she did not receive any warfarin last night and we intend to hold warfarin for at least another day. That will help correcting her INR to within therapeutic range. Since patient's condition has improved she is going to be discharged home today. DISCHARGE MEDICATIONS: 1. Furosemide 40 mg orally once daily. 2. Famotidine 40 mg orally once daily. 3. Humulin 70/30, 15 units in the morning and 10 units in the evening. 4. Levofloxacin 500 mg orally once daily for 7 days. 5. Aspirin 81 mg orally once daily. 6. Carvedilol 12.5 mg orally twice daily. 7. Cymbalta 30 mg orally once daily. 8. Folic acid 1 mg orally once daily. 9. Hydralazine 75 mg orally every 8 hours. 10. Nifedipine ER 90 mg orally once daily. 11. Warfarin 2 mg orally once daily at bedtime. That will be started on Sunday09/14/2016. 12. Vitamin B12 1000 mcg IM once a month. FOLLOWUP: She will follow up with me at the office in approximately 1 week at which time, we are going to recheck her INR. TIME SPENT: A total of more than 40 minutes were spent during the discharge process. cc: MD SOPHIE Dubon
--- NOTE | 2016-09-13 23:06 | PROVIDER DOCUMENTATION ---
This chart was entered by Patt Ruiz Scribe, acting as scribe for Herberth Arana MD. HPI-General Adult - General Chief Complaint: Altered Mental Status Stated Complaint: AMS Time Seen by Provider: 09/08/16 13:02 Source: family, EMS, RN notes reviewed Allergies/Adverse Reactions: Patient Allergies Allergy/AdvReac Type Severity Reaction Status Date / Time No Known Allergies Allergy Verified 09/08/16 14:47 Home Medications: Home Medication List Medication Instructions Recorded Confirmed Last Taken Type Famotidine 40 mg PO DAILY 04/09/16 09/08/16 09/07/16 10:00 History Folic Acid 1 mg PO DAILY 04/09/16 09/08/16 09/07/16 10:00 History Furosemide 40 mg PO DAILY 04/09/16 09/08/16 09/07/16 10:00 History Insulin NPH Hum/Reg Insulin Hm 10 unit SQ QPM 04/09/16 07/11/16 09/07/16 16:00 History [Humulin 70/30 Kwikpen] Insulin NPH Hum/Reg Insulin Hm 15 unit SQ QAM 04/09/16 09/08/16 09/08/16 07:00 History [Humulin 70/30 Kwikpen] Duloxetine HCl 30 mg PO DAILY #30 04/12/16 09/08/16 09/07/16 10:00 Rx Cyanocobalamin (Vitamin B-12) 1,000 mcg IJ ORDERED 07/11/16 09/08/16 10:00 History [Cyanocobalamin Injection] Carvedilol [Coreg] 12.5 mg PO Q12HR tablet 07/18/16 09/08/16 09/07/16 22:00 Rx Hydralazine [Apresoline] 75 mg PO Q8H tablet 07/18/16 09/08/16 09/08/16 06:00 Rx Nifedipine E.r. [Adalat cc] 90 mg PO DAILY tablet 07/18/16 09/08/16 09/07/16 10 :00 Rx Levofloxacin 500 mg PO DAILY #7 tablet 09/12/16 Unknown Rx Warfarin [Coumadin] 2 mg PO QHS tablet 09/12/16 Unknown Rx - History of Present Illness -Gen Adult Nature of Presenting Problems: 81 yo F presents to the ER from [facility] with complaint of AMS and recurrent UTI. Pt is delirious, muttering incoherent things. Pt's son states that when he walked in this morning she did not recognize him. Baseline is A&O x3, ambulatory. Pt received x2 doses of rocephin (1 at 1500 yesterday, 1 at 0300 this morning) and 1 dose of levoquin at 0900 this morning. States she has recurrent UTI, yesterday started to regress and developed a fever and change in baseline mental status. Onset/Duration: reports: 24 hours ago Associated Symptoms: reports: fever/chills, genitourinary problems Review of Systems - Adult - REVIEW OF SYSTEMS - ADULT Constitutional: reports: fever. denies: chills Eyes: reports: no symptoms reported Ears, Nose, Mouth & Throat: reports: no symptoms reported Cardiovascular: reports: no symptoms reported Respiratory: denies: cough, wheezing Gastrointestinal: denies: diarrhea, nausea, vomiting Genitourinary: reports: see HPI, frequent UTI's Musculoskeletal: reports: no symptoms reported Integumentary: reports: no symptoms reported Neurological: reports: no symptoms reported Psychiatric: reports: no symptoms reported Endocrine: reports: no symptoms reported Hematologic/Lymphatic: reports: no symptoms reported Allergic/Immunologic: reports: no symptoms reported All Other Systems: Reviewed and Negative Past History - Adult - PAST MEDICAL HISTORY-ADULT Review of Records: reports: Nursing Assessment Review, Medications Reviewed Major Childhood Illnesses: reports: history unknown Cardiovascular: reports: heart valve problem, murmur. denies: A-Fib, CAD, palpitations, pacemaker Endocrine/Immune: reports: Diabetes - IMMUNIZATION STATUS Childhood Immunizations: See Nurse Assessment Flu Vaccine: See Nurse Assessment Physical Exam-General - PHYSICAL EXAM-ADULT Initial Vital Signs Reviewed: Yes - CONSTITUTIONAL General Appearance: alert, other (delirious, disoriented) - EYES Eyes: PERRL/EOMI, pink conjunctivae - HEAD, EARS, NOSE, MOUTH & THROAT HENMT: normal ENT inspection. negative: moist mucous membranes - NECK Neck: supple, normal inspection - RESPIRATORY Respiratory: no respiratory distress, no accessory muscle use - CARDIOVASCULAR Cardiovascular: normal peripheral pulses, regular rate, rhythm - GASTROINTESTINAL (ABDOMEN) Abdominal Exam: normal bowel sounds, non tender, soft - MUSCULOSKELETAL Back Exam: no CVA tenderness, no vertebral tenderness Extremity: normal range of motion. negative: swelling, tenderness - SKIN Integumentary: normal color, warm/dry - NEUROLOGIC Neurologic: no motor/sensory deficits. negative: facial droop, motor weakness - PSYCHIATRIC Psych/Mental Status: disoriented x 3, other (incoherant, mumbling) Progress - PLAN OF CARE/RESULTS Progress/Plan/Lab Results: Vital Signs - 8 hr 09/08/16 12:49 Pulse Rate 129 H Respiratory Rate 20 Blood Pressure 158/98 O2 Sat by Pulse Oximetry 100 Orders Category Date Time Status EKG [EKG] Stat Ther 09/08/16 12:59 Ordered Result Diagrams: 09/12/16 05:46 09/12/16 05:46 - EKG 1 Time of EKG reading by physician:: 12:48 EKG Read and Signed by:: Herberth Arana EKG Interpretation (*Must complete 3 of following elements*): Abnormal Rate: 120 Rhythm: sinus tach Nash: normal QRS: normal VT Interval: normal ST Wave: non-specific ST changes (ST&T wave abnormality, consider inferolateral ischemia) Comments: possible L atrial enlargement - XRAY 1 XRAY Study: Chest Impression: Normal (negative, per radiologist) - CT/MRI 1 CT Study: Head Impression: Normal (no hemorrhage. Atrophy, but otherwise negative brain CT without contrast, per radiologist) Departure - Departure Date of Disposition Decision: 09/08/16 Time of Disposition Decision: 14:30 DIAGNOSIS: UTI (urinary tract infection) Qualifiers: Urinary tract infection type: site unspecified Hematuria presence: without hematuria Qualified Code(s): N39.0 - Urinary tract infection, site not specified Disposition: ADMITTED INPATIENT 09 Certified Medical Emergency: Emergent Condition: Stable - Critical Care Note This patient required my direct & personal management of CC.: No This chart was documented by the indicated scribe, (Patt Ruiz Scribe) and accurately reflects the services I performed and decisions made by me, Herberth Arana MD, as attested by the provider's signature.
== END 2016-09-12 14:02 | disposition home health service (06) ==
LOC: ED 12:42 → 4N 16:27 → 3N 09-09 00:16
PROVIDERS: ADMIT Internal Medicine; ATTEND Internal Medicine

== ENCOUNTER 2018-05-16 11:04 | Inpatient (IN) ==
--- NOTE | 2018-05-01 10:36 | EKG Report ---
Test Performed on : 05/01/2018 10:18:10 AM Test Reason : PAT Blood Pressure : / mmHG Vent. Rate : 075 BPM Atrial Rate : 075 BPM P-R Int : 198 ms QRS Dur : 094 ms QT Int : 384 ms P-R-T Axes : 114 094 -37 degrees QTc Int : 428 ms Suspect arm lead reversal, interpretation assumes no reversal Normal sinus rhythm. Rightward axis ST & T wave abnormality, consider lateral ischemia Abnormal ECG When compared with ECG of 08-SEP-2016 12:48, Vent. rate has decreased BY 45 BPM QRS duration has increased T wave inversion less evident in Lateral leads Confirmed by Artur MADRIGAL, Ridge Hutchinson ([id number]) on 05/01/2018 1:56:36 PM
[2018-05-01 11:08] LABS: HEMATOCRIT 41.8 % (37.0-47.0); HEMOGLOBIN 13.2 g/dL (12.0-16.0); MCH 28.4 PG (27-31); MCHC 31.6 g/dL (33-37); MCV 89.9 FL (81-99); MPV 10.2 FL (7.4-10.4); RBC 4.65 XMIL (4.2-5.4); RDW 15.8 % (11.5-14.5); WBC 8.06 X1000 (4.8-10.8)
[2018-05-01 11:59] LABS: CALCIUM 9.7 mg/dL (8.8-10.2); CREATININE 1.1 mg/dL (0.5-0.9); POTASSIUM 4.7 mmol/L (3.5-5.1)
[2018-05-16] MEDS ORDERED: LR 1,000 ML ONE (11:42)
[2018-05-16] MEDS ORDERED: KEFZOL 1 GM/D5W 2 GM/100 ML IVPB ONE (11:42)
[2018-05-16] MEDS ORDERED: XYLOCAINE-MPF 2% ONE (12:21)
[2018-05-16] MEDS ORDERED: DIPRIVAN 1% ONE (12:22)
[2018-05-16] MEDS ORDERED: ADALAT CC PO ONE (12:29)
[2018-05-16] MEDS ORDERED: D50W SYRINGE IV ONE (12:45)
[2018-05-16] MEDS ORDERED: D50W SYRINGE ONE (12:52)
[2018-05-16] MEDS ORDERED: ROBINUL ONE (12:58)
[2018-05-16] MEDS ORDERED: APRESOLINE IV ONE ×2 (13:09→13:39)
[2018-05-16] MEDS ORDERED: APRESOLINE ONE (13:41)
--- NOTE | 2018-05-16 13:43 | EKG Report ---
Test Performed on : 05/16/2018 1:27:01 PM Test Reason : preop Blood Pressure : / mmHG Vent. Rate : 074 BPM Atrial Rate : 074 BPM P-R Int : 190 ms QRS Dur : 094 ms QT Int : 416 ms P-R-T Axes : 052 051 130 degrees QTc Int : 461 ms Normal sinus rhythm. Cannot rule out Anterior infarct , age undetermined ST & T wave abnormality, consider lateral ischemia Abnormal ECG When compared with ECG of 01-MAY-2018 10:18, Nonspecific T wave abnormality no longer evident in Inferior leads T wave inversion less evident in Anterolateral leads Confirmed by Sumit MADRIGAL, Herberth Hutchinson ([id number]) on 05/17/2018 6:49:55 AM
[2018-05-16] MEDS ORDERED: KLONOPIN PO ONE ×2 (14:24→15:22)
[2018-05-16] MEDS ORDERED: LABETALOL IV ONE ×2 (14:25→15:23)
[2018-05-16] MEDS ORDERED: ZOFRAN IV PRN (14:28)
[2018-05-16] MEDS: TYLENOL PO PRN ×2 (14:40→20:26)
[2018-05-16 15:38] LABS: BASO# 0.04 X1000 (0.0-0.2); BASO% 0.4 % (0.0-0.8); EOS# 0.32 X1000 (0.0-0.7); EOS% 3.6 % (0.0-10.0); HEMATOCRIT 43.6 % (37.0-47.0); HEMOGLOBIN 13.9 g/dL (12.0-16.0); IMM GRAN# 0.02 X1000 (0.0-0.04); IMM GRAN% 0.2 % (0.0-0.5); LYMPH# 1.65 X1000 (1.2-3.4); LYMPH% 18.3 % (20.5-51.1); MCH 28.3 PG (27-31); MCHC 31.9 g/dL (33-37); MCV 88.8 FL (81-99); MONO% 8.9 % (1.7-9.3); MPV 9.9 FL (7.4-10.4); NEUT# 6.18 X1000 (1.4-6.5); NEUT% 68.6 % (42.2-75.2); PLT 338 X1000 (130-400); RBC 4.91 XMIL (4.2-5.4); RDW 15.8 % (11.5-14.5); WBC 9.01 X1000 (4.8-10.8)
[2018-05-16 16:01] LABS: AGAP 13; ALB/GLOB RATIO 1.2; ALBUMIN 3.3 g/dL (3.5-5.0); ALKALINE PHOSPHATASE 104 U/L (32-104); BUN 10 mg/dL (8-22); CHLORIDE 109 mmol/L (98-107); CK PROFILE 34 U/L (24-173); COSMO 279; CREATININE 0.8 mg/dL (0.5-0.9); ESTIMATED GFR > 60; GLUCOSE 82 mg/dL (70-104); GOT 22 U/L (10-30); GPT 10 U/L (10-36); POTASSIUM 3.8 mmol/L (3.5-5.1); SODIUM 141 mmol/L (136-145); TCO2 19 mmol/L (25-35); TOTAL BILIRUBIN 0.21 mg/dL (0.20-1.00); TOTAL PROTEIN 6.1 g/dL (6.3-8.3)
--- NOTE | 2018-05-16 17:45 | HISTORY AND PHYSICAL ---
CHIEF COMPLAINT: Elevated blood pressure. This is kind of a consultation H P, but blood pressure is not able to be controlled preoperatively, and she will be admitted for treatment of blood pressure. HISTORY OF PRESENT ILLNESS: This is an 83-year-old female. She has a longstanding history of hematuria, who comes in for elective cystoscopy. She has a history of a urethral carbuncle. Dr. Chaves see her and was planning to do surgery today; however, preoperative evaluation showed elevated blood pressures 250/93, diastolics occasionally in the 108 range. Heart rate was stable. Blood pressure has been high previously in April at 174/61, but not quite this high. She took some medications this morning, but not all. She took her Coreg 25, but she did not take her Lasix or nifedipine. She is not symptomatic except for a mild headache. No chest pain. No shortness of breath. She has some chronic chest discomfort since her aortic valve replacement. The patient is very tearful when discussing trying to get her blood pressure under control. She says it has not been a major issue historically, but she has had issues intermittently with her blood pressure. She has seen Dr. Stewart previously but is currently under the care of Dr. Quynh oLbo. In any case, patient will be admitted for uncontrolled hypertension. She received nifedipine 30, 10 of hydralazine, and her blood pressure is still 240s over 100 diastolic. PAST MEDICAL HISTORY: 1. Type 2 diabetes. 2. Chronic diastolic heart failure. 3. Aortic valve replacement with a mechanical valve. 4. Hypertension. 5. Dyslipidemia. 6. Hypothyroidism. 7. Chronic renal failure, stage 3. 8. Dementia. 9. History of CVA. 10. Bipolar disorder. PAST SURGICAL HISTORY: 1. She has had an aortic valve replacement. 2. She has had a partial colectomy for ischemic bowel disease. 3. Left hip surgery. SOCIAL HISTORY: No tobacco. No ethanol. She lives with her . Her son is a dentist apparently. She is in assisted living. FAMILY HISTORY: Mother had an RI in her 60s or 70s. ALLERGIES: Reports no known drug allergies. MEDICATIONS: She currently takes NovoLog 70/30 of 20 units at bedtime, Coumadin 3.5 at bedtime alternating with a 2.5 at-bedtime dose, allopurinol 100 daily, Coreg 25 b.i.d., Pepcid 40 daily, folic acid 1 daily, Lasix 40 daily, 70/30 insulin 15 units in the morning, Synthroid 50 daily, Adalat 30 b.i.d., Klor-Con 20 daily, duloxetine 30 daily. REVIEW OF SYSTEMS: Otherwise negative times a 10-point review of systems. PHYSICAL EXAMINATION: Again her current blood pressure is 239/76 which is a little bit of improvement. Heart rate is 65; I think she was in the 70s to 80s when I saw her. Respiratory rate is 16. Temperature 97.9 degrees. GENERAL: A well-developed female, appears stated age, somewhat tremulous. EYE: Pupils equal, round, and reactive to light. Extraocular moves were intact. Sclerae were anicteric. She had changes in her lens, pupil, consistent with previous cataract repair, I believe. CARDIOVASCULAR: Regular rate and rhythm. PULMONARY: Bilateral breath sounds clear to auscultation. GASTROINTESTINAL: Soft, nontender, nondistended. Bowel sounds are positive. NEUROLOGICAL: Exam was nonfocal. Cranial nerves 2-12 were grossly intact. MUSCULOSKELETAL: Exam was 4/5 in all 4 extremities. LABORATORY DATA: I do not have any data today. Her creatinine 1.1 last admission. ASSESSMENT: An 83-year-old lady with aortic valve replacement, coronary artery disease (CAD), congestive heart failure (CHF) diastolic, presenting with malignant hypertension. 1. Malignant hypertension. I think she has failed kind of conservative measures. I am going to go ahead and pursue a Cardene drip and lower her blood pressure slowly, and we will add other medications, likely increase her nifedipine and follow closely. Our goal is to get her at least 160/90 preoperatively. I am not sure what Anesthesia's level of comfort is, but I assume around those numbers. Of course, we have to do that slowly. We will check EKG, which I think has been done, cardiac enzymes, and follow closely. 2. Hematuria. Cystoscopy per Dr. Chaves. We will continue to have him evaluate the patient and follow closely. 3. Diabetes. We will follow blood sugars closely. Hold insulin for now. Check A1c. Continue sliding scale insulin. 4. Aortic valve replacement. We will resume her Lovenox until we feel surgery is stable. We will continue to follow. Appreciate referral. CRITICAL CARE TIME: 32-minute critical care time for hypertensive urgency on IV antihypertensives. cc: MD Marcel Nino MD
[2018-05-16] MEDS: CARDENE 20 MG/NS 20 MG/200 ML PIGGYBACK IV SCH ×3 (17:51→22:48)
[2018-05-16] MEDS: HUMULIN R SUBQ SCH ×2 (18:05→20:28)
[2018-05-16] MEDS: LOVENOX SUBQ SCH (18:16)
[2018-05-16] MEDS: COREG PO SCH (20:26)
[2018-05-17] MEDS: CARDENE 20 MG/NS 20 MG/200 ML PIGGYBACK IV SCH (02:04)
[2018-05-17] MEDS: TYLENOL PO PRN (02:51)
[2018-05-17] MEDS: LOVENOX SUBQ SCH ×3 (06:18→20:58)
[2018-05-17] MEDS: HUMULIN R SUBQ SCH ×4 (07:17→21:06)
[2018-05-17] MEDS: LASIX PO SCH (08:33)
[2018-05-17] MEDS: COREG PO SCH ×2 (08:33→20:57)
[2018-05-17] MEDS: KLOR-CON PO SCH (08:33)
[2018-05-17] MEDS: PEPCID PO SCH (08:34)
[2018-05-17] MEDS: ZYLOPRIM PO SCH (08:34)
[2018-05-17] MEDS: FOLIC ACID PO SCH (08:34)
[2018-05-17] MEDS: SYNTHROID PO SCH (08:34)
[2018-05-17] MEDS: CYMBALTA PO SCH (08:34)
[2018-05-17 08:47] LABS: BASO# 0.06 X1000 (0.0-0.2); BASO% 0.9 % (0.0-0.8); EOS# 0.28 X1000 (0.0-0.7); HEMATOCRIT 40.1 % (37.0-47.0); HEMOGLOBIN 12.5 g/dL (12.0-16.0); LYMPH# 1.61 X1000 (1.2-3.4); LYMPH% 23.2 % (20.5-51.1); MCH 28.3 PG (27-31); MCHC 31.2 g/dL (33-37); MCV 90.7 FL (81-99); MONO# 0.45 X1000 (0.11-0.59); MONO% 6.5 % (1.7-9.3); MPV 10.2 FL (7.4-10.4); NEUT# 4.53 X1000 (1.4-6.5); NEUT% 65.4 % (42.2-75.2); PLT 331 X1000 (130-400); RBC 4.42 XMIL (4.2-5.4); RDW 16.1 % (11.5-14.5); WBC 6.93 X1000 (4.8-10.8)
[2018-05-17] MEDS ORDERED: ADALAT CC PO SCH (09:00)
[2018-05-17 09:23] LABS: CALCIUM 8.5 mg/dL (8.8-10.2); POTASSIUM 3.8 mmol/L (3.5-5.1)
[2018-05-17] MEDS ORDERED: KLONOPIN PO PRN (12:08)
[2018-05-17] MEDS ORDERED: APRESOLINE IV PRN (12:08)
[2018-05-17] MEDS ORDERED: ADALAT CC PO ONE (14:47)
--- NOTE | 2018-05-17 15:18 | PROGRESS NOTE ---
DATE: 05/17/2018 SUBJECTIVE: The patient has no major complaints. She still has some headache which has been there for several days but is overall improved. OBJECTIVE: Blood pressure is 178/70, heart rate 79, respiratory rate 23, temperature was 99. Cardiovascular: Regular rate and rhythm. Pulmonary: Bilateral breath sounds clear to auscultation. GI: Stable. Soft, nontender and nondistended. Bowel sounds were positive. DIAGNOSTIC DATA: White count is 6, hemoglobin and hematocrit of 12 and 40. Creatinine of 1. Glucose of 215. PROBLEMS: 1. Uncontrolled malignant hypertension. Clinically she seems stable. I am going to slowly increase her nifedipine because she is still not under control, and she needs improved blood pressure for surgery, although at this point, I do not think that is going to be done right now. 2. Hematuria. Plan for outpatient cystoscopy, but again, we are not anticipating that is going to get done any time soon or at least not for several weeks. 3. Diabetes. Appears well controlled. I do not see that an A1c has been completed. I think that some of the orders were kind of lost in process. 4. Disposition. I think if her blood pressure is stable, she will be able to go home tomorrow. We will continue to follow closely. I am going to continue the Lovenox for now. We will discuss with Dr. Chaves about fdc issues. We will continue to follow. She is on p.r.n. hydralazine in the meantime. Disposition pending her clinical status, but again, I anticipate discharge tomorrow. I think she is stable for transfer. cc: Marcel Hall MD
[2018-05-17] MEDS ORDERED: INSULIN PEN NEEDLES ONE (20:57)
[2018-05-17] MEDS ORDERED: NOVOLOG MIX 70/30 SUBQ SCH (21:00)
[2018-05-18] MEDS: HUMULIN R SUBQ SCH ×3 (06:07→15:22)
[2018-05-18] MEDS: LOVENOX SUBQ SCH ×2 (06:07→16:01)
[2018-05-18] MEDS: SYNTHROID PO SCH (06:07)
[2018-05-18] MEDS: TYLENOL PO PRN (07:43)
[2018-05-18] MEDS: ZYLOPRIM PO SCH (08:05)
[2018-05-18] MEDS: FOLIC ACID PO SCH (08:06)
[2018-05-18] MEDS: PEPCID PO SCH (08:06)
[2018-05-18] MEDS: KLOR-CON PO SCH (08:06)
[2018-05-18] MEDS: COREG PO SCH (08:06)
[2018-05-18] MEDS: LASIX PO SCH (08:06)
[2018-05-18] MEDS: CYMBALTA PO SCH (08:06)
[2018-05-18] MEDS ORDERED: ADALAT CC PO SCH (09:00)
[2018-05-18] MEDS ORDERED: NOVOLOG MIX 70/30 SUBQ SCH (09:00)
[2018-05-18 09:31] LABS: BASO# 0.05 X1000 (0.0-0.2); BASO% 0.7 % (0.0-0.8); EOS# 0.33 X1000 (0.0-0.7); EOS% 4.8 % (0.0-10.0); HEMATOCRIT 42.1 % (37.0-47.0); HEMOGLOBIN 13.3 g/dL (12.0-16.0); IMM GRAN# 0.02 X1000 (0.0-0.04); IMM GRAN% 0.3 % (0.0-0.5); LYMPH% 24.7 % (20.5-51.1); MCHC 31.6 g/dL (33-37); MCV 88.6 FL (81-99); MONO# 0.51 X1000 (0.11-0.59); MONO% 7.4 % (1.7-9.3); MPV 10.1 FL (7.4-10.4); NEUT# 4.28 X1000 (1.4-6.5); NEUT% 62.1 % (42.2-75.2); PLT 316 X1000 (130-400); RBC 4.75 XMIL (4.2-5.4); RDW 15.6 % (11.5-14.5); WBC 6.89 X1000 (4.8-10.8)
[2018-05-18 09:43] LABS: HEMOGLOBIN A1C 6.3 % (4.8-6.0)
[2018-05-18 09:52] LABS: CALCIUM 8.6 mg/dL (8.8-10.2); POTASSIUM 3.4 mmol/L (3.5-5.1)
[2018-05-18] MEDS ORDERED: KLOR-CON PO ONE (14:12)
[2018-05-18 15:42] VITALS: BP 166/55
--- NOTE | 2018-05-18 17:25 | Diag Imaging Result Doc PS360 ---
EXAM: CT ANGIOGRAM RENAL ARTERIES HISTORY: malignant hypertension TECHNIQUE: CT angiogram abdomen/renal arteries with contrast. Arteriogram protocol with MIP images. COMPARISON: 11/01/2017 FINDINGS: Trace left pleural fluid with basilar atelectasis or infiltrates. The heart is enlarged. There may be scattered hepatic and renal cysts. The spleen is not enlarged. Normal pancreas, gallbladder, and right adrenal gland. No change in an 8 mm hypodense left adrenal nodule. There are scattered renal cysts. No hydronephrosis. No bowel obstruction. No ascites. No abdominal aortic aneurysm. Prominent atherosclerosis at the takeoff of the celiac and superior mesenteric arteries. Stenosis of between 50 and 70%. Prominent stenosis and atherosclerosis to each renal artery of between 70 and 90%. IMPRESSION: Severe atherosclerosis with stenosis of each of the main arteries in the abdomen. This exam was performed using automated exposure control, adjustment of mA or kV according to patient size, and/or use of iterative reconstruction technique. Electronically signed by Luis Mcmanus 05/18/2018 5:22 PM
--- NOTE | 2018-05-18 17:25 | DISCHARGE SUMMARY ---
ADMISSION DATE: 05/16/2018 DISCHARGE DATE: 05/18/2018 DISCHARGE DIAGNOSES: 1. Malignant hypertension. 2. Hematuria. 3. Diastolic heart failure. 4. Mechanical aortic valve. 5. Hypothyroidism. HISTORY OF PRESENT ILLNESS: The patient preoperatively was found to have elevated blood pressures in the 240 range and above 100 diastolic, could not be managed by her regular medications. The patient was evaluated by Anesthesia and felt that she was not stable enough for surgery. She was admitted for blood pressure control. Initially we had to put her on IV Cardene because she did not respond to labetalol, nifedipine and hydralazine. The following day, her blood pressure improved, but it was still in the 180s. We adjusted up her nifedipine to 90. On day of discharge, her blood pressure is down in the 150s, she was asymptomatic. In any case, the patient was felt stable for discharge. I did pursue a secondary hypertension workup which includes CT angiography, TSH, metanephrines, renin, aldosterone. We will continue to follow. She sees Dr. House apparently as an outpatient, so she will follow up with her and decide about clearance for surgery. I did not resume her Coumadin, anticipating that she will need surgery next week or in the next week or two. We gave her 10 days of Coumadin, so we will continue to follow. DISCHARGE MEDICATIONS: NovoLog 70/30 ten at night, allopurinol 100 daily, Coreg 25 b.i.d., Pepcid 40 daily, folic acid 1 daily, Lasix 40 daily, 70/30 fifteen in the morning, Synthroid 50 daily, Klor-Con 20 daily, Cymbalta 30 daily, Lovenox 70 q.12 for the next 10 days or until surgery is completed, Adalat 90 daily. She is to follow up with Dr. House next week and get cleared for surgery or adjust her blood pressure. Dr. House and Dr. Chaves will have to coordinate about taking her off her Lovenox if they are going to preclude further surgery. She has enough for 10 more days of her Coumadin. If she resumes her Coumadin, it will need to be bridged because of her aortic valve. But in any case, we will anticipate getting that done hopefully soon. This is a 32-minute discharge. cc: Marcel R. PenMD Rogerio vides MD Dr. Reed Nidhi Jindal, MD
== END 2018-05-18 14:30 | disposition home health service (06) | DRG 305 ==
LOC: ICU 11:04 → OR 11:04
PROVIDERS: ADMIT Internal Medicine; ATTEND Internal Medicine
PROC: MS.CXOR (2018-05-16 13:00)
CPT/HCPCS: 74175; 80048; 80053; 82088; 82550; 82948; 83036; 83835; 84244; 84443; 84484; 85025; 85027; 93005; 93010; A9270; J0360; J0690; J1650; J7120; Q9967; XXXXX

== ENCOUNTER 2018-05-20 10:13 | Inpatient (IN) ==
--- NOTE | 2018-05-20 10:31 | ED EKG INTERP ---
This chart was entered by Dusty Morrell Scribe, acting as scribe for Sb Vargas MD. EKG Interpretation - EKG Time of EKG reading by physician:: 10:16 EKG Read and Signed by:: Sb Vargas EKG Interpretation (*Must complete 3 of following elements*): Abnormal (POSS ANTERIOR INFARCT AGE UNDETERMINED) Rate: 65 Rhythm: NSR [place]: normal QRS: normal Attestation - Physician/ MYLA Attestation The physician spent face to face time with patient:: No Advanced Practice Provider documentation review:: Supervising physician onsite and consulted in the evaluation and care of this patient. The physician did not have a face to face encounter with the patient. This chart was documented by the indicated scribe, (Dusty Morrell Scribe) and accurately reflects the services I performed and decisions made by me, Sb Vargas MD, as attested by the provider's signature.
[2018-05-20] MEDS ORDERED: LABETALOL IV ONE ×4 (10:52→13:15)
--- NOTE | 2018-05-20 11:06 | PROVIDER DOCUMENTATION ---
HPI-General Adult - General Chief Complaint: B/P Problems Stated Complaint: ELEVATED BP Time Seen by Provider: 05/20/18 10:18 Source: patient Allergies/Adverse Reactions: Patient Allergies Allergy/AdvReac Type Severity Reaction Status Date / Time No Known Allergies Allergy Verified 05/16/18 11:42 Home Medications: Home Medication List Medication Instructions Recorded Confirmed Last Taken Type Famotidine 40 mg PO DAILY 04/09/16 05/01/18 05/15/18 09:00 History Folic Acid 1 mg PO DAILY 04/09/16 05/01/18 05/15/18 09:00 History Furosemide 40 mg PO DAILY 04/09/16 05/01/18 05/15/18 09:00 History Duloxetine HCl 30 mg PO DAILY #30 04/12/16 05/01/18 05/15/18 09:00 Rx Allopurinol 100 mg PO DAILY 05/01/18 05/01/18 05/15/18 09:00 History Carvedilol [Coreg] 25 mg PO BID 05/01/18 05/16/18 05/16/18 09:15 History Insulin Novolog 70/30 [Novolog Mix 10 unit SUBQ QHS 05/01/18 05/16/18 05/15/18 21:00 History 70/30] Insulin Novolog 70/30 [Novolog Mix 15 unit SUBQ QA 05/01/18 05/16/18 05/16/18 09:45 History 70/30] Levothyroxine [Synthroid] 50 microgm PO DAILY 05/01/18 05/16/18 05/15/18 09:00 History Potassium Chloride 20 meq PO DAILY 05/01/18 05/01/18 05/15/18 09:00 History Warfarin [Coumadin] 2.5 mg PO QHS 05/01/18 05/01/18 05/14/18 History Warfarin [Coumadin] 3.75 mg PO QHS 05/01/18 05/01/18 05/14/18 History Enoxaparin Sodium [Lovenox] 70 mg SQ Q12H #14 ml 05/18/18 Unknown Rx Nifedipine E.r. [Adalat cc] 90 mg PO DAILY #30 tab 05/18/18 Unknown Rx - History of Present Illness -Gen Adult Nature of Presenting Problems: Patient is an 83yo F who presents with c/o elevated BP and headache. Patient reports being admitted to on 05/[address] Chaves. Preoperatively, her BP was elevated and she was admitted to the ICU for management. She was on a Cardene gtt from 05/16 to 05/18 when she was deemed stable enough for d/c. Patient was told to follow-up with PCP and certified breastfeeding educator for stenosis. Patient reports feeling okay at home post-discharge, but awoke this morning around 0430 with a bilateral frontal headache. Patient reports she does not have a BP cuff, but "her head felt like it did when she was in the hospital." She took her Nifedipine (60mg) and Coreg (25mg), as well as 2 extra strength Tylenol with mild relief. She called [facility] and she reports they told her they were 30 mins out and to call and ambulance, which she did. Patient is tearful while discussing her BP and recent hospital stay. HX of HTN, DM, stage 3 CKD, HLD, aortic valve replacement. Pt is non-toxic in appearance. Location of Pain/Injury: reports: head (Bilateral frontal) Pain Radiation: reports: no radiation Quality of Pain: reports: pressure Severity: reports: moderate Onset/Duration: reports: 4-6 hours ago (Headache began at 0430) Timing: reports: still present, getting worse Context/Activities at Onset: reports: none Modifying Factors: improves with: analgesics, other medication Associated Symptoms: reports: dizziness, headaches. denies: back/neck pain, cough, nausea, shortness of breath, syncope, vomiting Similar Symptoms Previously?: Yes (Admitted in ICU from 05/16 to 05/18) Recently seen or treated by another doctor?: Yes (Admitted in ICU from 05/16 to 05/18) Review of Systems - Adult - REVIEW OF SYSTEMS - ADULT Constitutional: denies: chills, fever, fatique, night sweats Eyes: reports: no symptoms reported Ears, Nose, Mouth & Throat: reports: no symptoms reported Cardiovascular: denies: chest pain, palpitations, syncope Respiratory: denies: cough, dyspnea on exertion, shortness of breath, wheezing Gastrointestinal: denies: abdominal pain, diarrhea, nausea Genitourinary: reports: no symptoms reported Musculoskeletal: reports: no symptoms reported Integumentary: reports: no symptoms reported Neurological: reports: dizziness/vertigo, headache/migraines Psychiatric: reports: no symptoms reported Endocrine: reports: no symptoms reported Hematologic/Lymphatic: reports: no symptoms reported Allergic/Immunologic: reports: no symptoms reported All Other Systems: Reviewed and Negative Past History - Adult - PAST MEDICAL HISTORY-ADULT Review of Records: reports: Old Records Reviewed, Nursing Assessment Review, Medications Reviewed, Social history reviewed & non-contributory. Major Childhood Illnesses: reports: history unknown Cardiovascular: reports: CHF (Chronic Diastolic heart failure), HTN, heart valve problem (Mechanical aortic valve replacement in 1998), hyperlipidemia, murmur. denies: A-Fib, CAD, palpitations, pacemaker Respiratory: reports: denies history Gastrointestinal: reports: denies history Obstetrical/Gynecological: reports: denies history Genitourinary: reports: kidney disease (Stage 3 CKD), stenosis/obstruction, chronic UTI's Musculoskeletal: reports: denies history Neurological: reports: CVA (Hx), dementia Psychiatric: reports: anxiety, bipolar Endocrine/Immune: reports: Diabetes (Type 2), thyroid disorder Diabetes Type: Type 2 Diabetes controlled by:: Insulin Dependent Other Conditions: reports: denies history - PRIOR SURGERIES/PROCEDURES Surgical/Procedure History: reports: hysterectomy, , bowel surgery - IMMUNIZATION STATUS Childhood Immunizations: See Nurse Assessment Flu Vaccine: See Nurse Assessment - FAMILY HISTORY Family History: reviewed, not pertinent - SOCIAL HISTORY Smoking: denies Physical Exam-General - PHYSICAL EXAM-ADULT Initial Vital Signs Reviewed: Yes - CONSTITUTIONAL General Appearance: alert, mild distress. negative: lethargic, slow to respond , obtunded, combative - HEAD, EARS, NOSE, MOUTH & THROAT HENMT: normocephalic/atraumatic, moist mucous membranes - NECK Neck: full range of motion, supple - RESPIRATORY Respiratory: lungs clear, normal breath sounds, no pleuratic chest pain, no respiratory distress, no accessory muscle use. negative: crackles, rales, rhonchi, stridor, wheezing - CARDIOVASCULAR Cardiovascular: regular rate, rhythm, no edema, no gallop, no murmur. negative : extra beats - SKIN Integumentary: normal color, normal turgor, warm/dry. negative: jaundice, mottled, pallor - NEUROLOGIC Neurologic: grossly normal - PSYCHIATRIC Psych/Mental Status: normal thought content, normal thought process, oriented x 3, tearful Progress - PLAN OF CARE/RESULTS Progress/Plan/Lab Results: Vital Signs - 8 hr 05/20/18 10:28 Pulse Rate 70 Respiratory Rate 25 H Blood Pressure 203/97 O2 Sat by Pulse Oximetry 100 Orders Category Date Time Status Cardiac Monitoring DIRECTED Care 05/20/18 10:48 Active Saline Loc NOW Care 05/20/18 10:51 Active Vital Signs Order Q30M Care 05/20/18 10:48 Active CHEST-2 VIEWS [RAD] Stat Exams 05/20/18 10:[address] HEAD W/O CONTRAST [CT] Stat Exams 05/20/18 10:48 Ordered CBC WITH DIFF [HEME] Stat Lab 05/20/18 10:25 Results COMPREHENSIVE METABOLIC PANEL [CHEM] Stat Lab 05/20/18 10:25 Received MAGNESIUM [CHEM] Stat Lab 05/20/18 10:25 Received TROPONIN T Stat Lab 05/20/18 10:25 Received UA NIMS W/REFLEX CULT [URINALYSIS] Stat Lab 05/20/18 10:48 Uncollected Labetalol Med 05/20/18 10:52 Discontinued 5 mg IV NOW ONE Lab results and plan of care discussed with patient who verbalizes understanding. Also discussed results with patient's son, Dr. Adarsh Mills ( dentist), over the phone at 1255. Patient has hx of proteinuria and hematuria for which she sees urologist. Plan of care discussed with Dr. Vargas who recommended and additional 10mg labetolol IV @ 1245. Result Diagrams: 05/20/18 10:25 05/20/18 10:25 - XRAY 1 XRAY: Bilateral XRAY Study: Chest ([facility] [address] , [address], [place] [address] Department of Imaging Patient: RAMU MILLS CAD Date: 05/20/18MR#: [id number] : 6ADM Status: REG [facility]#: [id number] Age /Sex: 83/FRoom/Bed: Loc: ED Ordering Physician: Rosa M Dyer Family Physician: Quynh Lobo MD Reason for Procedure: dizziness, elevated BP * Signed EXAM: CHEST-2 VIEWS INDICATION: dizziness, elevated BP TECHNIQUE: 2 views COMPARISON: 09/08/2016 FINDINGS: There is mild subsegmental atelectasis at the left lung base. The lungs are grossly clear, otherwise. There is no discrete pleural fluid collection or pneumothorax. There are median sternotomy wires and a prosthetic heart valve. The cardiomediastinal silhouette and central vasculature are grossly unremarkable, otherwise. IMPRESSION: Mild left basilar subsegmental atelectasis. No definite acute pathology, otherwise. Electronically signed by Hero Medina 05/20/2018 11:46 AM 05/20/18 1146 Interpreting Physician: Hero Medina MD Dictated Date/ Time: 05/20/18 1145 cc: Rosa M Dyer; Quynh Lobo MD) - CT/MRI 1 CT Study: Head ([facility] [address] [facility] [address], [place] [address] Department of Imaging Patient: RAMU MILLS [facility] Date: #: [id number] : 6ADM Status: [facility] ERAcct#: [id number] Age/ Sex: 83/FRoom/Bed: Loc: ED Ordering Physician: Rosa M Dyer Family Physician: Quynh Lobo MD Reason for Procedure: headache, elevated BP *Signed EXAM: CT HEAD W/O CONTRAST INDICATION: headache, elevated BP TECHNIQUE: This exam was performed using automated exposure control, adjustment of mA or kV according to patient size, and/or use of iterative reconstruction technique. COMPARISON: 09/08/2016 FINDINGS: There is stable diffuse brain atrophy and there is stable patchy low attenuation in the periventricular and subcortical white matter suggesting microangiopathy. There is a small chronic lacunar infarct involving the left basal ganglia that has developed during the interval. There is no definite acute infarct given the limited sensitivity of CT versus MRI. There is no discrete intracranial mass, mass effect, or intracranial hemorrhage. The surrounding soft tissues and bony structures are essentially unremarkable. IMPRESSION: Chronic appearing changes as described. No evidence of acute intracranial pathology. Electronically signed by Hero Medina 05/20/2018 11:40 AM 05/20/18 1140 Interpreting Physician: Hero Medina MD Dictated Date/Time: 05/20/18 1139 cc: Rosa M Dyer; Quynh Lobo MD) - CONSULTS/PCP/HOSPITALIST Notification #1 *Consult/PCP/Hospitalist*: Rebel Welsh Time Discussed: 14:19 (Discussed with MATTHEW Rose) Reason/Comments: HTN Consult Disposition: Admit Departure - Departure Date of Disposition Decision: 05/20/18 Time of Disposition Decision: 14:30 DIAGNOSIS: High blood pressure Qualifiers: Hypertension type: unspecified Qualified Code(s): I10 - Essential (primary) hypertension Proteinuria, unspecified Qualifiers: Proteinuria type: unspecified Qualified Code(s): R80.9 - Proteinuria, unspecified Disposition: ADMITTED INPATIENT 09 Certified Medical Emergency: Emergent Condition: Stable Referrals and Follow-Ups: Quynh Lobo MD [Primary Care Provider] - - Critical Care Note This patient required my direct & personal management of CC.: Yes Total Time (mins): 60 Critical Care Statement: This patient required my direct personal management to treat or rule out processes, the absence of which, could potentiallly result in sudden, clinically significant life or limb threatening deterioration. Attestation - Physician/ MYLA Attestation Patient care was provided by Advanced Practice Provider:: Yes Advanced Practice Provider:: Tammy Harper Advanced Practice Provider documentation review:: The Mid-level provider documentation, treatment plan and medical decision making was reviewed by the physician who agrees with all treatment and medical decision making by the [facility]. The physician spent face to face time with patient:: No Advanced Practice Provider documentation review:: Supervising physician onsite and consulted in the evaluation and care of this patient. The physician did not have a face to face encounter with the patient.
[2018-05-20 11:13] LABS: URINE SOURCE CLEAN CATCH
[2018-05-20 11:16] LABS: BILIRUBIN URINE NEGATIVE (NEGATIVE); BLOOD URINE TRACE (NEGATIVE); COLOR YELLOW; GLUCOSE URINE 100 mg/dL (NEGATIVE); KETONE URINE NEGATIVE (NEGATIVE); LEUKOCYTES URINE NEGATIVE (NEGATIVE); NITRITE URINE NEGATIVE (NEGATIVE); PROTEIN URINE 600 mg/dL (NEGATIVE); SP GRAVITY URINE 1.012; TURBIDITY URINE CLEAR (CLEAR); UROBILINOGEN URINE NORMAL (NORMAL)
[2018-05-20 11:18] LABS: UR EPITHELIAL CELLS <10 /HPF (<10); URINE BACTERIA 1+ /HPF; URINE RBC <10 /HPF (<10); URINE WBC <10 /HPF (<10)
[2018-05-20 11:25] LABS: ALB/GLOB RATIO 0.9; ALBUMIN 3.4 g/dL (3.5-5.0); CALCIUM 9.2 mg/dL (8.8-10.2); CREATININE 1.1 mg/dL (0.5-0.9); MAGNESIUM 2.2 mg/dL (1.5-2.7); POTASSIUM 3.9 mmol/L (3.5-5.1); TOTAL BILIRUBIN 0.18 mg/dL (0.20-1.00)
--- NOTE | 2018-05-20 11:42 | Diag Imaging Result Doc PS360 ---
EXAM: CT HEAD W/O CONTRAST INDICATION: headache, elevated BP TECHNIQUE: This exam was performed using automated exposure control, adjustment of mA or kV according to patient size, and/or use of iterative reconstruction technique. COMPARISON: 09/08/2016 FINDINGS: There is stable diffuse brain atrophy and there is stable patchy low attenuation in the periventricular and subcortical white matter suggesting microangiopathy. There is a small chronic lacunar infarct involving the left basal ganglia that has developed during the interval. There is no definite acute infarct given the limited sensitivity of CT versus MRI. There is no discrete intracranial mass, mass effect, or intracranial hemorrhage. The surrounding soft tissues and bony structures are essentially unremarkable. IMPRESSION: Chronic appearing changes as described. No evidence of acute intracranial pathology. Electronically signed by Hero Medina 05/20/2018 11:40 AM
--- NOTE | 2018-05-20 11:48 | Diag Imaging Result Doc PS360 ---
EXAM: CHEST-2 VIEWS INDICATION: dizziness, elevated BP TECHNIQUE: 2 views COMPARISON: 09/08/2016 FINDINGS: There is mild subsegmental atelectasis at the left lung base. The lungs are grossly clear, otherwise. There is no discrete pleural fluid collection or pneumothorax. There are median sternotomy wires and a prosthetic heart valve. The cardiomediastinal silhouette and central vasculature are grossly unremarkable, otherwise. IMPRESSION: Mild left basilar subsegmental atelectasis. No definite acute pathology, otherwise. Electronically signed by Hero Medina 05/20/2018 11:46 AM
[2018-05-20 12:12] LABS: BASO# 0.04 X1000 (0.0-0.2); BASO% 0.6 % (0.0-0.8); EOS# 0.26 X1000 (0.0-0.7); EOS% 4.2 % (0.0-10.0); HEMATOCRIT 40.4 % (37.0-47.0); HEMOGLOBIN 12.9 g/dL (12.0-16.0); LYMPH% 25.8 % (20.5-51.1); MCH 28.7 PG (27-31); MCHC 31.9 g/dL (33-37); MCV 89.8 FL (81-99); MONO# 0.48 X1000 (0.11-0.59); MONO% 7.8 % (1.7-9.3); MPV 11.3 FL (7.4-10.4); NEUT# 3.81 X1000 (1.4-6.5); NEUT% 61.6 % (42.2-75.2); PLT 316 X1000 (130-400); RDW 15.8 % (11.5-14.5); WBC 6.19 X1000 (4.8-10.8)
--- NOTE | 2018-05-20 12:35 | EKG Report ---
Test Performed on : 05/20/2018 10:16:21 AM Test Reason : BLOOD PRESSURE PROBL Blood Pressure : / mmHG Vent. Rate : 065 BPM Atrial Rate : 065 BPM P-R Int : 202 ms QRS Dur : 096 ms QT Int : 462 ms P-R-T Axes : 041 067 143 degrees QTc Int : 480 ms Normal sinus rhythm. Possible Anterior infarct (cited on or before 16-MAY-2018) Abnormal ECG When compared with ECG of 16-MAY-2018 13:27, No significant change was found Unconfirmed Result
[2018-05-20] MEDS ORDERED: APRESOLINE IV ONE (13:42)
[2018-05-20] MEDS: CARDENE 20 MG/NS 20 MG/200 ML PIGGYBACK IV SCH ×2 (14:50→17:54)
[2018-05-20 15:00] LABS: INR 1.06; PROTIME 14.6 Seconds (11.0-16.0)
[2018-05-20 15:01] LABS: PTT 46.3 Seconds (22.3-41.8)
[2018-05-20] MEDS ORDERED: ATIVAN IV ONE (15:02)
[2018-05-20] MEDS ORDERED: XANAX PO ONE (15:13)
[2018-05-20] MEDS ORDERED: MORPHINE IV ONE (15:14)
[2018-05-20] MEDS ORDERED: ZOFRAN IV PRN (16:29)
[2018-05-20] MEDS ORDERED: MORPHINE IV PRN (16:29)
[2018-05-20] MEDS ORDERED: NS 1,000 ML IV SCH (16:29)
[2018-05-20] MEDS ORDERED: LABETALOL IV PRN (16:29)
--- NOTE | 2018-05-20 16:42 | HISTORY AND PHYSICAL ---
Ms. Mills presented to the emergency room. She is concerned about her blood pressure being high and so came to the emergency room. On arrival, blood pressure I think was 180/100. She had some levels 200/100. She was admitted back on the of this month May for similar thing elevated blood pressure. She said she had some chest discomfort when she got to the emergency room but the initial reason come the emergency room was concerned about her blood pressure. She has a longstanding history of hematuria and they are working her up now. She was going to have an elective cystoscopy. She has a history of urethral carbuncle. Dr. Chaves is following her and I think was planning to do some surgery on a carbuncle. I think she was scheduled for surgery and they cancelled because blood pressure was 250/93, diastolics occasionally in the 108 range. Her heart rate was stable. Previously in April she had a blood pressure 174/61. She took Coreg but was not taking her Lasix or nifedipine at that time. She does complain of a headache but did not have any previous chest pain. No shortness of breath and no palpitations but very anxious and upset about her blood pressure and so we are going to admit again for accelerated hypertension and see if we can get her medicine down. PAST MEDICAL HISTORY: 1. Diabetes mellitus type 2. 2. Chronic diastolic heart failure. 3. Aortic valve replacement with mechanical valve. 4. Hypertension. 5. Dyslipidemia. 6. Hypothyroidism. 7. Chronic renal failure stage 3. 8. Dementia. 9. History of CVA. 10. History of bipolar disorder. PAST SURGICAL HISTORY: 1. Had aortic valve replacement. 2. She has had partial colectomy for ischemic bowel disease. 3. Left hip surgery. SOCIAL HISTORY: No tobacco or ethanol. She lives with her . Her son is a dentist here in [facility]. She is in assisted living. FAMILY HISTORY: Mother had an DE in her 60s or 70s. ALLERGIES: No known drug allergies. REVIEW OF SYSTEMS: She does not report weight gain or loss. No fever or chills. No change in visual or hearing acuity. No focal neurologic complaints.Musculoskeletal: No focal complaints there either. HEENT: No neck pain. No cervical adenopathy. Respiratory: No upper respiratory or lower respiratory complaints, no cough or sputum production or pleuritic pain. Cardiovascular: No chest pain or tachy palpitation. Gastrointestinal and Genitourinary: No gross hematuria, dysuria. Musculoskeletal and neurologic: No significant complaints. She does complain of a headache. PHYSICAL EXAMINATION: GENERAL: She is in the emergency room. Temperature afebrile, pulse 67, respirations 14, blood pressure 201/65. Her pupils were equal. Funduscopic did not see any blurring of disc. No cervical adenopathy. Carotid. No carotid, abdominal or femoral bruits. Carotid, radial, and femoral pulses 2+ and symmetrical. CARDIOVASCULAR: Regular rhythm and rate without murmur S3. PMI nondisplaced. Mechanical valve appreciated, good opening, closing sound. LUNGS: Respiratory lung barrow are clear in all lung barrow. GI AND : Abdomen was soft, nondistended. No hepatojugular reflux. No hepatosplenomegaly. No chest wall pain. No pedal edema. NEUROLOGIC: Neurologically intact. No lateralizing deficits. Cranial nerves 2 through 12 intact. Motor strength symmetrical. Sensory intact as well. LAB: White count 6190, hematocrit is 40, platelet count 316,000, sodium 142, potassium 3.9, chloride 108, BUN 14, creatinine 1.1. Blood sugar 175, calcium 9.2, AST is 32, ALT is 19, alkaline phos is 100, troponin less than 0.01. Pro time is 14.6, INR 1.06, PTT is 46. Urinalysis unremarkable. Chest x-ray, mild left basilar subsegmental atelectasis. No definite acute pathology. Head CT without contrast, chronic appearing changes described. No evidence of acute intracranial pathology. ASSESSMENT AND PLAN: 1. Accelerated hypertension. Her home medicines she takes Coreg 25 mg b.i.d. and she takes nifedipine ER 90 mg a day. We will continue these and I think we can consider adding Apresoline and she may need to take it 3 times a day but will add Apresoline at 25 mg 3 times a day. She is on nifedipine drip right now. 2. Blood counts look good. Electrolytes look good as well. Creatinine is 1.1 so continue watch her renal function. 3. She has had chronic hematuria. Dr. Eliseo Chaves has been following her. She has a urethral carbuncle and I think they were considering surgery so we will let Dr. Chaves know she is here in the hospital. I am not sure what with the status of her surgery is. 4. Aortic valve replacement mechanical valve. She is on anticoagulant. She has been on Lovenox. I think for right now will keep her on Lovenox at 1 mg/kg subcu q.12. 5. History of hypothyroidism. We will check a T4 and TSH. Keep her on her Synthroid. 6. She has chronic renal failure apparently stage 3, creatinine is 1.1 so looks fairly stable. We will give her some fluid and will give her normal saline at 75 mL an hour. 7. History of dementia. 8. History of cerebrovascular accident. 9. History of bipolar disorder. Note there is a component of anxiety there as well and we will let her have some Ativan 1 mg q.4 hours p.r.n. 10. Diabetes mellitus type 2. We need to check pattern sugars. We will continue her insulin NovoLog 70/30, I think she gets 15 units in the morning and 10 units and night, put on a diabetic diet. I think they have been holding her Coumadin so she will be on the Lovenox which coagulation her pro time is 14.6 so we will put her on the Lovenox. cc: Rebel Welsh MD
[2018-05-20] MEDS: SODIUM CHLORIDE 0.9% INJ SCH (16:49)
[2018-05-20] MEDS: PROTONIX IV SCH (16:49)
[2018-05-20] MEDS: APRESOLINE PO SCH (16:49)
[2018-05-20] MEDS: HUMALOG SUBQ SCH ×2 (16:50→20:14)
[2018-05-20] MEDS: LOVENOX SUBQ SCH (17:07)
[2018-05-20] MEDS: CARDENE 40 MG/NS 40 MG/200 ML PIGGYBACK IV SCH (19:59)
[2018-05-20] MEDS: COREG PO SCH (20:23)
[2018-05-21] MEDS: PROTONIX IV SCH ×2 (04:12→17:02)
[2018-05-21] MEDS: LOVENOX SUBQ SCH ×2 (04:13→17:02)
[2018-05-21] MEDS ORDERED: PHENOBARBITAL IV ONE (05:47)
--- NOTE | 2018-05-21 05:53 | CARDIOLOGY CONSULTATION ---
DATE: 05/20/2018 REQUESTING PHYSICIAN: Dr. Welsh, Hospitalist Service, for management of uncontrolled hypertension. CHIEF COMPLAINT: Chief complaint at presentation is headache and elevated blood pressure. HISTORY: Mrs. Mills is a pleasant 83-year-old female who presented at this time to the emergency room at about 11:00 this morning because she noted that her blood pressure was very elevated and she had a headache that was unusual for her across the frontal area and bitemporal. This lasted for a while. The patient was concerned because she has had hypertension for many years and never a headache of this intensity. Upon presentation, her blood pressure was noted to be significantly elevated. It was as high as 213/104. The patient has been started on a Cardene drip and is feeling somewhat better. Her blood pressure right now has dropped to 194/72. Pulse is 79. PAST HISTORY: Positive for hypertension for many years. She also has a history of aortic valve disease and in 1998 she underwent aortic valve replacement in [place] at the [facility]. She has followed with Dr. Alexandr Peterson from the cardiology group in [place]. The patient has a history of diabetes mellitus, type 2. She has some chronic kidney disease. She has hypothyroidism and dyslipidemia. SURGICAL HISTORY: Includes also a partial colectomy that was done at [facility] some time ago and left hip surgery. SOCIAL HISTORY: She lives with her who is apparently a victim of Parkinson's disease and is very frail and needs to be taken care of. She needs to be careful. The patient's son is a dentist and he is the one who makes most of the decisions for the family. FAMILY HISTORY: Coronary heart disease. ALLERGIES: Negative. HOME MEDICATIONS: Include allopurinol 100 daily, carvedilol 25 twice a day, duloxetine 30 mg daily, Lovenox 70 mg every 12 hours, famotidine 40 mg daily, folic acid 1 mg daily, furosemide 40 mg daily, insulin 15 units in the morning and 10 units in the evening, Synthroid 50 mcg daily, nifedipine 90 mg daily,. potassium chloride 20 mEq daily. REVIEW OF SYSTEMS: Patient has dealt with blood pressure most of her life. No recent changes in the heart status. She saw Dr. Peterson last time in July 2017 and she was found to be stable. She had a recent hospital admission just a couple of days ago because of hematuria that led to recommendation to under cystoscopic examination, however, her blood pressure was really very high at the time of the cystoscopic examination she was admitted to the hospital actually on 05/16 and at that time they put her on a Cardene drip. They did a CT renal angiogram that showed severe atherosclerosis with a stenosis of each of her main arteries in the abdomen. A head CT has been done today that shows chronic appearing changes. No evidence of acute intracranial pathology. PHYSICAL EXAMINATION: Her exam right now, blood pressure is 194/72, temperature is 98 degrees, respiratory rate 18, pulse 79. She is awake, alert, in no distress. HEENT: Normal. Chest: Sounds diminished at the bases. Cardiac: Heart sounds are regular in rhythm and a normal closing click of prosthetic aortic valve. Abdomen: Soft, nontender. She does have a prominent abdominal bruit more so on the left than on the right. It is nontender. Extremities: Showed good distal pulses, no peripheral edema. Neurologic: Follows commands, moves four extremities. BLOOD WORK: Sodium 142, potassium 3.9, BUN 14, creatinine 1.1, troponin is negative. IMAGING: EKG done today shows sinus rhythm with a nonspecific T abnormality in the precordial lateral leads and possible anterior scar. Chest x-ray done today shows mild left basilar subsegmental atelectasis. No definite acute pathology. IMPRESSION: 1. Patient who presents with uncontrolled hypertension and headache. 2. Status post aortic valve replacement, on long-term anticoagulation with Warfarin which has been put on hold for cystoscopic examination that had to be postponed. 3. Hematuria recently. 4. Finding of bilateral renal artery stenosis on CT scan of the abdomen May 18 with finding of abdominal bruit on physical examination. 5. Chronic kidney dysfunction. 6. History of diabetes mellitus, type 2. 7. Question of multiple liver cysts/ renal cysts as variant of polycystic kidney dz and association with marsh aneurysm of cerebral circulation.? Patient has reported unusual headache at this admission. RECOMMENDATIONS: At this time, I would suggest to discuss with the admitting team about getting Dr. Seymour Melgoza to evaluate her for renal artery stenosis by means of renal arteriogram and possible stenting. I would also suggest to get a Neurology evaluation for the headache. The patient happens to have multiple cysts in the liver and the left kidney and some in the right kidney. Question is whether or not this is a variant of polycystic kidney disease which might potentially associate with marsh aneurysms of the brain. At this time we will continue Nathalie krause. Will make sure that she gets labetalol around the clock to control her blood pressure and further intervention will depend on the consultation with multiple specialists. Cardiac moses there is no specific issue going on with her aortic valve nor the myocardium. There is no myocardial ischemia. There is no suspicion of heart failure at this time. cc: Garland Sorenson MD MTDD
[2018-05-21 05:56] LABS: BASO# 0.05 X1000 (0.0-0.2); BASO% 0.7 % (0.0-0.8); EOS# 0.29 X1000 (0.0-0.7); EOS% 4.1 % (0.0-10.0); HEMATOCRIT 39.5 % (37.0-47.0); HEMOGLOBIN 12.4 g/dL (12.0-16.0); IMM GRAN# 0.02 X1000 (0.0-0.04); IMM GRAN% 0.3 % (0.0-0.5); LYMPH% 21.3 % (20.5-51.1); MCH 28.6 PG (27-31); MCHC 31.4 g/dL (33-37); MONO# 0.51 X1000 (0.11-0.59); MONO% 7.3 % (1.7-9.3); MPV 10.7 FL (7.4-10.4); NEUT# 4.66 X1000 (1.4-6.5); NEUT% 66.3 % (42.2-75.2); PLT 312 X1000 (130-400); RBC 4.34 XMIL (4.2-5.4); RDW 16.1 % (11.5-14.5); WBC 7.03 X1000 (4.8-10.8)
[2018-05-21 06:13] LABS: INR 1.01; PROTIME 14.1 Seconds (11.0-16.0)
--- NOTE | 2018-05-21 06:29 | Diag Imaging Result Doc PS360 ---
EXAM: CHEST-PORTABLE HISTORY: follow up TECHNIQUE: Portable chest single view COMPARISON: 05/20/2018 FINDINGS: The lungs are well expanded except for minimal atelectasis in the left base.. The heart is not enlarged. A heart valve has been replaced. The vessels are not distended. There are no infiltrates. No effusion identified. IMPRESSION: Stable exam. Electronically signed by Luis Mcmanus 05/21/2018 6:26 AM
[2018-05-21 06:31] LABS: FREE T4 0.93 ng/dL (0.93-1.70); TSH 5.07 uIUmL (0.27-4.20)
[2018-05-21] MEDS: HUMALOG SUBQ SCH ×4 (06:34→21:18)
[2018-05-21 06:38] LABS: CALCIUM 8.9 mg/dL (8.8-10.2); CREATININE 0.9 mg/dL (0.5-0.9); MAGNESIUM 2.2 mg/dL (1.5-2.7); POTASSIUM 4.2 mmol/L (3.5-5.1)
[2018-05-21] MEDS: CARDENE 40 MG/NS 40 MG/200 ML PIGGYBACK IV SCH ×3 (06:58→18:55)
--- NOTE | 2018-05-21 07:28 | EKG Report ---
Test Performed on : 05/21/2018 06:49:38 AM Test Reason : chest pain Blood Pressure : / mmHG Vent. Rate : 078 BPM Atrial Rate : 078 BPM P-R Int : 198 ms QRS Dur : 096 ms QT Int : 432 ms P-R-T Axes : 050 062 134 degrees QTc Int : 492 ms Normal sinus rhythm. Anterior infarct (cited on or before 16-MAY-2018) Abnormal ECG When compared with ECG of 20-MAY-2018 10:16, (Unconfirmed) No significant change was found Confirmed by Herberth Arana MD ([id number]) on 05/22/2018 6:35:09 AM
[2018-05-21] MEDS: APRESOLINE PO SCH ×3 (08:09→17:02)
[2018-05-21] MEDS: COREG PO SCH ×2 (08:09→20:10)
--- NOTE | 2018-05-21 08:29 | GENERAL SURGERY CONSULTATION ---
DATE: 05/21/2018 REASON FOR CONSULTATION: I have been asked to see Ms. Mills regarding uncontrolled hypertension. HISTORY: This is a pleasant, 83-year-old, white female who was admitted with uncontrolled hypertension and headache. Recent renal arteriogram suggests bilateral renal artery stenosis. She was admitted on the with hypertension and headache. A head CT showed only chronic change but no evidence of bleeding or intracranial pathology. She is on a Cardene drip with her blood pressure in the 180/90 range. PAST MEDICAL HISTORY: Pertinent for mechanical aortic valve placed 20 years ago. She is followed by Dr. Alexandr Peterson for that. She has a history of type 2 diabetes, hypothyroidism, dyslipidemia. PAST SURGICAL HISTORY: Previous surgery includes a partial colectomy and a left hip surgery. MEDICATIONS AT HOME: Include allopurinol, Coreg, duloxetine, Pepcid, folic acid, Lasix, insulin, Synthroid, nifedipine, potassium chloride. ALLERGIES: She has no known drug allergies. FAMILY HISTORY: Pertinent for coronary artery disease. SOCIAL HISTORY: She is . She does have a son who is a dentist. REVIEW OF SYSTEMS: As noted above. It is negative for chest pain or shortness of breath. PHYSICAL EXAMINATION: Vital Signs: She is afebrile. Heart rate 76, blood pressure is 191/67, respiratory rate 22. Respiratory: She has bilateral breath sounds. Heart: Regular rate and rhythm. Abdomen: Soft. Bowel sounds are active. Extremities: Femoral pulses are present. She does have dorsalis pedis pulses. They are slight. Neurologic: She is awake, alert, and oriented. LABORATORY DATA: Hemoglobin 12.4. BUN 12, creatinine 0.9. CTA does suggest bilateral renal artery stenosis. PLAN: I have discussed renal artery selective angiography with her and then possible stent placement. I will look at timing and see when we can proceed with this. We discussed benefits and risks. She understands. cc: Seymour Melgoza MD
--- NOTE | 2018-05-21 08:57 | PROGRESS NOTE ---
DATE: 05/21/2018 SUBJECTIVE: This patient is resting comfortably in bed. At the moment of my physical exam, she was eating. She is tolerating p.o. without any kind of problems. Her blood pressure right now on the monitor is 126/109. I will continue with the same treatment for now, but I will stop the IV fluids. She has been on normal saline. Cardiology Department is following this patient as well as Nephrology Department. OBJECTIVE: Vital Signs: Pulse 76, respiratory rate 22, and blood pressure on the monitor 176/109. Oxygen saturation 93 on room air. HEENT: Head normocephalic. No trauma. PERRLA. Neck: Supple. No JVD. Central trachea. Chest: Clear to auscultation. No wheezing. No rales. Cardiovascular: She does have a click likely from prosthetic aortic valve, otherwise RRR. Abdomen: Soft and nontender. She has bilateral flank bruits. Extremities: No edema. No clubbing. No cyanosis. Neurological: The patient is alert. She is oriented x3. She is following commands. She moves all 4 extremities. LABORATORY: WBC 7. Hemoglobin 12.4, hematocrit 39.5, and platelets 312,000. Sodium 141, potassium 4.2, chloride 110, bicarbonate 20, BUN 12, creatinine 0.9, glucose 148 and calcium 8.9, and magnesium 2.2. Troponin negative x4. TSH 5. Free T4 0.93. ASSESSMENT AND PLAN: 1. Uncontrolled hypertension, accelerated hypertension. The blood pressure seems to be doing a little bit better. We will continue with the same management. Cardiology Department following this patient closely. This patient has no symptoms today. No headache. 2. Chronic hematuria. Dr. Chaves is following this patient. I do not think he is a good candidate right now to get surgery, but we will monitor. 3. Mechanical aortic valve replacement. Continue with anticoagulation. She is on Lovenox twice a day. 4. Bilateral renal artery stenosis on CT scan of the abdomen. Surgery Department has been consulted to see if there is a possibility of putting a stent so we can improve the renal flow, and probably the blood pressure. 5. Chronic kidney disease. Stable. Since this patient is eating and drinking fine, I will stop the normal saline. I will continue to monitor. Nephrology Department has been consulted as well. 6. Headaches. Since this patient has multiple scattered hepatic and renal cysts, we will ask Neurology Department to evaluate this patient to rule out any abnormality in the brain. 7. History of CVA. Aware. No symptoms today. 8. History of bipolar disorder. As per the patient, she was anxious yesterday but today she is feeling fine. No anxiety today. 9. Type 2 diabetes. Continue with the same management. Blood sugar has been stable. 10. History of partial colectomy for ischemic bowel disease. No abdominal pain today. CRITICAL CARE TIME: 35 minutes. cc: Cheikh Ford MD
[2018-05-21] MEDS: ADALAT CC PO SCH ×2 (09:29→20:10)
--- NOTE | 2018-05-21 09:30 | NEPHROLOGY CONSULTATION ---
DATE: 05/21/2018 REASON FOR ADMISSION: Headache with elevated blood pressure. REASON FOR CONSULT: Hypertensive crisis. CONSULTING PHYSICIAN: Dr. Welsh. HISTORY OF PRESENT ILLNESS: Ms. Mills is an 83-year-old white female who has not been seen by our practice in the past, who states that she was due for a procedure last week. This was canceled secondary to her having an elevated blood pressure on the . She was hospitalized. Her blood pressure had responded nicely. She had no discomfort or chest pain. No increased swelling. She was subsequently sent home she states on Sunday evening. She stayed in on Sunday and Sunday. She states that Sunday she had awoken with a severe headache. She presented to the emergency room. She was found to have an elevated blood pressure of 180/100. The patient was subsequently started on Cardene IV drip. She was given labetalol IV push. She was admitted to the ICU for further monitoring and evaluation. Prior to that period of time, she had some scans performed which now indicate renal arteriogram suggesting bilateral renal artery stenosis. CT of the head did show some chronic change, but no evidence of bleeding or intracranial pathology. PAST MEDICAL HISTORY: Positive for mechanical aortic valve placed 20 years ago followed by Dr. Alexandr Peterson, type 2 diabetes, hypothyroidism, and dyslipidemia. She has chronic kidney disease stage 2. Her baseline creatinine is noted at 0.9 to 1.1. GFR is greater than 60%. History of bipolar disorder, dementia, history of cerebrovascular accident. PAST SURGICAL HISTORY: aortic valve replacement approximately 20 years ago, partial colectomy for ischemic bowel disease, left hip surgery. SOCIAL HISTORY: She lives with her . Her son is a dentist in [place]. She is in an assisted living. No tobacco or alcohol use. FAMILY HISTORY: Mother had a myocardial infarction in her 60s. Negative for renal disease. CURRENT ALLERGIES: Listed as no known drug allergies. HOME MEDICATIONS: Have yet to be reconciled. REVIEW OF SYSTEMS: She is negative for chest pain. No increased work of breathing. No increased lower extremity swelling. No weight gain or loss. She is able to move all of extremities without discomfort. She denies nausea, vomiting, diarrhea. No fever or chills. Significant complaints mentioned above with headache. VITAL SIGNS: Her most recent vital signs show her last temperature recorded in the emergency room was low less than 98.6, blood pressure 181/71, heart rate is 82, respirations are 16. She is on room air. Last recorded saturation 95%. She has had 2015 in, 320 mL out to void. LABS: Her sodium is 141, potassium 4.2, chloride 110, CO2 20, BUN 12, creatinine 0.9, glucose 148. Anion gap of 11, calcium 8.9, magnesium 2.2. TSH is 5.07, free T4 0.93. Negative troponin. White count 7.03, hemoglobin 12.4, hematocrit 39.5 with a platelet count. Pro- time is 14.1 with an INR of 1.01. PHYSICAL EXAMINATION: General: This is an 83-year-old elderly white female. She appears in no acute distress. Skin: Warm and dry. HEENT: Normocephalic, atraumatic. Conjunctiva is pink. She has CÉSAR. Mucous membranes are dry. Neck: Supple. Trachea midline. No evidence of JVD. Cardiovascular: She is regular rate and rhythm. She is without murmur or gallop. She does have a mechanical valve click. Abdomen: Soft, nontender. Positive bowel sounds. Genitourinary: Not inspected. Patient has been voiding adequate documented. Requested to keep strict I's and O's. Extremities: Have no edema, no clubbing or cyanosis. Neurological: She is alert and oriented x3. Able to give a good history. Moves all extremities well. ASSESSMENT AND PLAN: 1. Hypertensive crisis. Patient has been resumed on her home medications of Coreg 25 mg b.i.d. She has actually been on nifedipine 90 mg a day at home. This has been stopped. She has been started on hydralazine 25 mg b.i.d. She has been given labetalol and she is currently on a nifedipine drip. Due to these continued elevated blood pressures, we will add Procardia XL 60 mg b.i.d. to her current prescriptions. We will request that they attempt to wean off her Cardene drip. 2. Patient has had a CT angiography. Dr. Melgoza has been consulted in regards with possible angiography with renal stenting. We await his assistance. She states she understands. 3. Chronic hematuria. This is followed by Dr. Chaves. She has a history of urethral carbuncle with planned outpatient surgery that is canceled at this time. 4. Electrolytes, acid-base balance, and anemia these are all acceptable. The patient is on anticoagulation with her aortic valve. This is followed by the primary care team. I would like to thank you for allowing us to follow with this patient. We made some changes as above. We will also add losartan. If she develops TIFFANY this will support the diagnosis. rg Dictated by MATTHEW Zamora for Maycol June MD Face to face encounter, data reviewed, discussed with Mili Snyder on 05/21/18. I agree with the above assessment and plan of care. rg cc: MATTHEW Zamora MD [facility]
--- NOTE | 2018-05-21 12:55 | CONSULTATION ---
DATE OF CONSULTATION: 05/21/2018 ATTENDING AND REFERRING PHYSICIAN: Lucho. HISTORY OF PRESENT ILLNESS: This 83-year-old female was admitted with accelerated hypertension. She has a history of hypertension problems. She has a history of intermittent gross hematuria. Physical exam revealed a small urethral caruncle that had a small blood clot associated with it. The patient was scheduled for a cystoscopic exam with bilateral retrograde ureteral pyelograms and excision of the urethral caruncle. The patient was noted to have significant hypertension, and the procedure was canceled and she was admitted to the intensive care unit to control her blood pressure. She was discharged on 05/18. She states her headache increased, and her blood pressure was still very elevated and she returned to the emergency room on 05/20. The patient was started on a Cardene drip. She states she is feeling better. A CT angiogram on 05/18 revealed significant bilateral renal artery stenosis. She states she is voiding without difficulty. PAST MEDICAL HISTORY: Hypertension, peripheral vascular disease with aortic valve replacement, diabetes, hypothyroidism, elevated cholesterol, renal insufficiency, bipolar disorder, and dementia status post CVA. CURRENT MEDICATIONS: Documented on the chart. PAST SURGICAL HISTORY: Mechanical aortic valve replacement over 20 years ago. Partial colectomy. Right hip replacement. Hysterectomy. SOCIAL HISTORY: She denies tobacco or alcohol use. ALLERGIES: No known drug allergies. REVIEW OF SYSTEMS: She currently states she is feeling much better. She states her headache is better. She denies any recent pulmonary or bowel problems. She has had no more hematuria. PHYSICAL EXAMINATION: General: A thin, age apparent, normally developed, white female oriented in all ways and cooperative. HEENT: Normal for age. Lungs: Clear. Cardiovascular: Regular rate and rhythm. Abdomen: Somewhat protuberant. Soft. Nontender. No hepatosplenomegaly or masses. Normal bowel sounds. Genitourinary: Deferred. Less than 1 month ago, she had normal external female. Atrophic mucosa. Urethral caruncle. No adnexal masses. Surgically absent cervix and uterus. Palpably normal bladder. Extremities: No clubbing, cyanosis, or edema. Neurologic: No focal deficits. LABORATORY EVALUATION: The patient has a white count of 7.03, hemoglobin 12.4, hematocrit 39.5, and platelets are 312,000. Serum electrolytes are normal. BUN [address] angiogram is as noted in the HPI. IMPRESSION: 1. History of accelerated hypertension currently under control in the intensive care unit. 2. Significant peripheral vascular disease with stenosis of each renal artery. 3. History of intermittent hematuria currently stable. PLAN: 1. As has been done, consult General Surgery to evaluate for renal artery stent placement. 2. After her blood pressure is under good control, we will revisit excision of the urethral caruncle. 3. Thank you for this consultation. cc: Rogerio Chaves MD
--- NOTE | 2018-05-21 16:21 | CONSULTATION ---
DATE OF CONSULTATION: 05/21/2018 REASON FOR CONSULTATION: Headache. HISTORY OF PRESENT ILLNESS: This is an 83-year-old right-handed female with a history of difficult to control hypertension, dyslipidemia, aortic valve replacement, and stroke who was admitted yesterday with accelerated hypertension. History is from the patient. She reports that she was just in the hospital toward the end of last week for a planned procedure. Her blood pressure was quite elevated and the procedure was cancelled. She was ultimately sent home, I believe on Sunday. Yesterday she woke up with a bad headache that was holocephalic, tight, and throbbing. She said that she knew her blood pressure was up again. She called EMS who brought her to the Emergency Department. Her blood pressures were above 200 on arrival. At one point they were recorded at 225/117 early on. She was admitted to the ICU for management. She denies any concomitant focal weakness or neurologic signs or symptoms. Head CT on arrival did not show acute findings. Renal arteriogram suggested bilateral renal artery stenosis. They are considering a procedure with possible stent placement. The patient reports a longstanding history of difficult to control hypertension. She also reports typically having a headache associated with elevated blood pressure. She does report some headache-free times but does say that in general she tends to have almost a steady headache which waxes and wanes in intensity. She denies any reports of sudden onset maximal headache. Other than associated with elevated blood pressures she reports not having a longstanding history of headaches otherwise. PAST MEDICAL HISTORY: 1. Reports prior TIAs in the past. Maybe 3 total. Most recently 2 years ago. Reports speech difficulty as the associated symptom. Head CT showed remote lacunar infarct of the left basal ganglia in additional to typical white matter microangiopathy. 2. Poorly controlled hypertension. 3. Diabetes. 4. Dyslipidemia. 5. Aortic valve replacement, mechanical valve. On chronic anticoagulation which has been held for a recently planned procedure. 6. Hypothyroidism. 7. Chronic kidney disease. 8. Reported dementia. 9. Reported history of bipolar disorder. 10.Partial colectomy for ischemic bowel disease. 11.Left hip surgery. FAMILY HISTORY: Her mother had a stroke. Also, a heart attack. She does not report a family history of intracerebral hemorrhage. SOCIAL HISTORY: No tobacco, alcohol, or illicit drugs. She is and lives with her at an independent living facility in [facility]. ALLERGIES: No known drug allergies listed. CURRENT MEDICATIONS: Reviewed in the chart. Includes: Cardene drip, Coreg, hydralazine, p.r.n. labetalol, and nifedipine. REVIEW OF SYSTEMS: A balance of 12 was conducted and was otherwise negative except that detailed in the HPI. PHYSICAL EXAMINATION: Afebrile. Blood pressure recently 170s to 180s systolic/ 50s to 60s. Pulse 60s to 70s. Respirations 23; 92% on room air. Ms. Mills is supine in bed, awake, alert, and oriented. Her speech is fluent. No dysarthria. Attention and concentration are intact. She is spontaneous. No language disturbance. Follows simple and complex commands. Pupils are equal, round, and reactive to light. Gaze is conjugate and forward. Extraocular movements are full. Visual barrow intact to direct confrontational testing. Face is symmetric with equal activation. Facial sensation is intact. Tongue is midline. Palate elevates symmetrically. Shoulder shrug is full. No drift. Tone is equal in the limbs. Strength is preserved and equal in the arms and legs. She reports symmetric sensation to light touch in the arms and legs. Finger to nose is slow bilaterally but accurate. Rapid alternating movements are intact. Reflexes are diminished at the ankles and knees bilaterally. No clonus. Plantar response is downgoing. Reflexes are trace at the wrists and 1+ at the biceps. DIAGNOSTICS: A noncontrast head CT showed chronic changes with stable diffuse brain atrophy as well as some typical white matter microangiopathy. Chronic lacunar infarct within the left basal ganglia. The CT was personally reviewed. Labs reviewed in the chart. BUN is 12 and creatinine 0.9. Blood sugar is 148 to 309. ASSESSMENT AND PLAN: 1. Accelerated hypertension. Reports longstanding difficulty with blood pressure control. Bilateral renal artery stenosis suggested on recent renal arteriogram with plans for a procedure with possible stenting soon. 2. Headache which seems to be related to accelerated hypertension. She has had current relief since being hospitalized. She does apparently have multiple scattered hepatic and renal cysts which was noted on CT of the abdomen and pelvis. She has also been off of her anticoagulation in preparation for a procedure. Will go head and evaluate with MRI/MRA of the brain. I would continue treating her blood pressure as you are doing. Hopefully, she will continue to have benefit with adequate blood pressure control. Headache improvement is reassuring. Thank you for the consultation. cc: Christy Hubbard MD MTDD
[2018-05-21] MEDS: COZAAR PO SCH (17:02)
[2018-05-22] MEDS: ATIVAN PO PRN ×2 (00:13→21:04)
[2018-05-22] MEDS ORDERED: NITROGLYCERIN TOP ONE (01:04)
[2018-05-22] MEDS ORDERED: ASPIRIN PO ONE (01:04)
[2018-05-22] MEDS: PROTONIX IV SCH ×2 (04:16→16:43)
[2018-05-22] MEDS: LOVENOX SUBQ SCH ×2 (04:17→16:43)
[2018-05-22 05:50] LABS: BASO# 0.03 X1000 (0.0-0.2); BASO% 0.5 % (0.0-0.8); EOS# 0.28 X1000 (0.0-0.7); EOS% 4.5 % (0.0-10.0); HEMATOCRIT 35.5 % (37.0-47.0); INR 1.02; LYMPH# 1.49 X1000 (1.2-3.4); LYMPH% 24.1 % (20.5-51.1); MCH 28.3 PG (27-31); MCV 91.3 FL (81-99); MONO# 0.53 X1000 (0.11-0.59); MONO% 8.6 % (1.7-9.3); MPV 10.9 FL (7.4-10.4); NEUT# 3.85 X1000 (1.4-6.5); NEUT% 62.3 % (42.2-75.2); PLT 308 X1000 (130-400); PROTIME 14.2 Seconds (11.0-16.0); RBC 3.89 XMIL (4.2-5.4); RDW 15.9 % (11.5-14.5); WBC 6.18 X1000 (4.8-10.8)
[2018-05-22] MEDS: HUMALOG SUBQ SCH ×4 (06:15→21:07)
[2018-05-22 06:31] LABS: AGAP 9; ALB/GLOB RATIO 1.3; ALKALINE PHOSPHATASE 79 U/L (32-104); BUN 12 mg/dL (8-22); CALCIUM 8.5 mg/dL (8.8-10.2); CHLORIDE 112 mmol/L (98-107); COSMO 287; CREATININE 0.9 mg/dL (0.5-0.9); ESTIMATED GFR 60; GLUCOSE 215 mg/dL (70-104); GOT 22 U/L (10-30); GPT 17 U/L (10-36); POTASSIUM 3.9 mmol/L (3.5-5.1); SODIUM 141 mmol/L (136-145); TCO2 20 mmol/L (25-35); TOTAL BILIRUBIN < 0.15 mg/dL (0.20-1.00); TOTAL PROTEIN 5.4 g/dL (6.3-8.3)
--- NOTE | 2018-05-22 08:14 | PROGRESS NOTE ---
DATE: 05/22/2018 SUBJECTIVE: This patient has no complaints today. Yesterday night, she started complaining of some chest discomfort. EKG did not show any acute abnormality and troponins were negative. Today, she is not complaining of chest pain. She is no longer on the Cardene drip. Blood pressure has been more stable. Surgery Department has discussed already with the patient about renal artery selective angiography with her and the possible stent placement. She understands the procedure and likely she will proceed with that once she is ready for it. OBJECTIVE: Vital Signs: Temperature 98 degrees, pulse 71, respiratory rate 19, blood pressure 145/53, oxygen saturation 91 on room air. HEENT: Head normocephalic, no trauma. PERRLA. Neck: Supple. No JVD. Central trachea. Chest: Clear to auscultation. No wheezing. No rales. Cardiovascular: She does have a click likely from her prosthetic aortic valve. Otherwise, RRR. Abdomen: Soft. Nontender. She has bilateral flank bruits on auscultation. Extremities: No edema. No clubbing. No cyanosis. Neurological examination: The patient is alert. She is oriented x3. She is following commands. She moves all 4 extremities. LABORATORY: WBC 6.1, hemoglobin 11, hematocrit 35.5, platelets 308. Sodium 141, potassium 3.9, chloride 112, bicarbonate 20. BUN 12, creatinine 0.9, glucose 215, calcium 8.5, albumin 3. ASSESSMENT AND PLAN: 1. Uncontrolled hypertension, accelerated hypertension. Blood pressure seems to be doing better. She is no longer using the Cardene drip. Cardiology Department and Nephrology Department following this patient closely. She has been placed on carvedilol and nifedipine, and Losartan. I will transfer this patient to the CIC unit. 2. Chronic hematuria. Dr. Chaves following this patient. No intervention for now. She is better. 3. Mechanical aortic valve replacement. Continue with anticoagulation. She is on Lovenox twice a day. 4. Bilateral renal artery stenosis on CT scan of the abdomen. Surgery Department has been consulted, and they probably will do a selective angiography of the renal artery with possible stent placement. That has been explained to the patient, and she seems to understand and agree with that. 5. Chronic kidney disease, stable. Nephrology on board. 6. Headaches. It has been recommended to do an MRI, but this patient has a mechanical valve. So, probably we cannot perform an MRI. Neurology Department on board. 7. History of cerebrovascular accident, aware. No symptoms today. 8. History of bipolar disorder. As per the patient, every time she gets anxious, she feels some chest discomfort, like yesterday night, but the electrocardiogram and troponins were negative. 9. Type 2 diabetes. Stable. Continue with same management. 10. History of partial colectomy from ischemic bowel disease, no abdominal pain today. CRITICAL CARE TIME: 35 minutes. cc: Cheikh Ford MD
[2018-05-22] MEDS: DULCOLAX PO SCH ×2 (09:04→21:04)
[2018-05-22] MEDS: ADALAT CC PO SCH ×2 (09:04→21:04)
[2018-05-22] MEDS: COZAAR PO SCH (09:04)
[2018-05-22] MEDS: COREG PO SCH ×2 (09:04→21:04)
--- NOTE | 2018-05-22 10:07 | NEPHROLOGY PROGRESS NOTE ---
DATE: 05/22/2018 DATE AND TIME SEEN: On 05/22/2018 at 0700 hours. SUBJECTIVE: Ms. Mills is resting quietly in bed. She has no complaints. States that she is feeling just a little bit better. Has not been out of bed. OBJECTIVE: Her most recent vital signs, temperature 98.2 degrees, blood pressure 133/50, her heart rate is 73, respirations are 16. She is on room air, last recorded saturation is 94%. She has had 1901 input and 775 mL output to void. LABORATORY DATA: Sodium 141, potassium 3.9, chloride 112, CO2 of 20, BUN 12, creatinine 0.9, glucose of 215. Her anion gap is 9. Calcium 8.5. Magnesium done on admission was 2.2, albumin of 3. White count 6.18, hemoglobin 11, hematocrit 35.5 with a platelet count of 308,000. PHYSICAL EXAMINATION: General: This is an 83-year-old white female resting quietly in bed. She appears chronically ill, no acute distress. Skin: Warm and dry. HEENT: Normocephalic, atraumatic. Conjunctiva is pale. She has CÉSAR. Mucous membranes are dry. Neck: Supple. Trachea midline. No JVD. Cardiovascular: She is regular rate and rhythm. She has a valvular click. Lungs: Her lungs are clear to auscultation, bilateral equal excursion on room air. Abdomen: Large, round, soft, nontender. Positive bowel sounds. Genitourinary : Not inspected. Adequate urine out to void. Neurological: Alert and oriented x3. ASSESSMENT AND PLAN: 1. Hypertensive crisis. Improved. Her BP has responded to her current regimen but it is not obvious that losartan has been particularly effective. We will continue nifedipine, carvedilol, losartan and observe her response. Plans for selective renal arteriogram and possible stenting if appropriate. I have discussed the case directly with Dr. Melgoza. rg 2. CT angiography with possible stenting. We are awaiting Dr. Melgoza to see the patient today for further evaluation. 3. Chronic hematuria. The patient has a urethral carbuncle. This has been followed by Dr. Chaves in the past, currently not following at this time. I would like to thank you for allowing us to follow with this patient. Dictated by MATTHEW Zamora for Maycol June MD Face to face encounter, data reviewed, discussed with Mili Snyder on 05/22/18. I agree with the above assessment and plan of care. cc: MATTHEW Zamora MD [facility]
--- NOTE | 2018-05-22 12:30 | PROGRESS NOTE ---
DATE: 05/22/2018 Ms. Mills reports minimal headache now, but headache has generally been much improved over the last 24 hours. She does not have any new complaints. She reports MRI is not an option because of her metal heart valve. CT showed old left basal ganglia lacune. This may be consistent with her history of prior event that she termed "TIA" causing transient dysphasia. I do not have anything to add to Dr. Hubbard's suggestions. It looks like headache may not be an issue if she can maintain good blood pressure control. If she has headache with blood pressure controlled, we can consider more specific headache management. I will be glad to see her as an outpatient, if needed. Thanks for asking Neurology to see Ms. Mills. cc: MD SOPHIE Yee III
--- NOTE | 2018-05-22 13:00 | GENERAL SURGERY PROGRESS NOTE ---
DATE: 05/22/2018 SUBJECTIVE: Ms Mills's blood pressure today is 155/59. PLAN: Selective arteriography with possible renal stent placement tomorrow. I have discussed the benefits and risks with her. She understands and agrees to proceed. We will hold her Lovenox in the morning. cc: Seymour Melgoza MD
[2018-05-22] MEDS: TYLENOL PO PRN (14:25)
[2018-05-23] MEDS: PROTONIX IV SCH ×3 (02:51→17:02)
[2018-05-23] MEDS: SODIUM CHLORIDE 0.9% INJ SCH (02:51)
[2018-05-23] MEDS: TYLENOL PO PRN ×2 (03:05→08:33)
[2018-05-23 05:52] LABS: BASO# 0.02 X1000 (0.0-0.2); BASO% 0.3 % (0.0-0.8); EOS# 0.26 X1000 (0.0-0.7); EOS% 4.4 % (0.0-10.0); HEMATOCRIT 35.4 % (37.0-47.0); LYMPH# 1.37 X1000 (1.2-3.4); LYMPH% 23.3 % (20.5-51.1); MCH 28.5 PG (27-31); MCHC 31.1 g/dL (33-37); MCV 91.7 FL (81-99); MONO# 0.47 X1000 (0.11-0.59); MPV 10.9 FL (7.4-10.4); NEUT# 3.76 X1000 (1.4-6.5); PLT 269 X1000 (130-400); RBC 3.86 XMIL (4.2-5.4); RDW 16.3 % (11.5-14.5); WBC 5.88 X1000 (4.8-10.8)
[2018-05-23 06:16] LABS: CALCIUM 9.2 mg/dL (8.8-10.2); CREATININE 0.9 mg/dL (0.5-0.9); POTASSIUM 3.8 mmol/L (3.5-5.1)
[2018-05-23] MEDS: HUMALOG SUBQ SCH ×4 (06:41→20:40)
[2018-05-23] MEDS: COREG PO SCH ×3 (07:45→20:36)
[2018-05-23] MEDS: ADALAT CC PO SCH ×3 (07:45→20:35)
[2018-05-23] MEDS: COZAAR PO SCH ×3 (07:45→08:32)
[2018-05-23] MEDS: DULCOLAX PO SCH ×2 (08:33→20:40)
--- NOTE | 2018-05-23 08:59 | PROGRESS NOTE ---
DATE: 05/23/2018 SUBJECTIVE: The patient has no new complaints today. The blood pressure has been mostly in the 130s/150s. We will continue with p.o. medication. Nephrology Department, as well as Cardiology Department on board. The plan today is to go to the OR to do a selective angiography of the renal arteries with possible stent placement. OBJECTIVE: Vital Signs: Temperature 97.7 degrees, pulse 71, respiratory rate 24 blood pressure 156/38, oxygen saturation 94% on room air. HEENT: Head normocephalic. No trauma. PERRLA. Neck: Supple. No JVD. No masses. Central trachea. Chest: Clear to auscultation. No wheezing. No rales. Cardiovascular: She does have a click likely from her prosthetic aortic valve. Otherwise, RRR. Abdomen: Soft, nontender. She does have bilateral flank bruits on auscultation. Extremities: No edema. No clubbing. No cyanosis. Neurological examination: The patient is alert. She is oriented x3. She is following commands. She moves all 4 extremities. LABORATORY: WBC 5.8, hemoglobin 11, hematocrit 35.4, platelets 269. Sodium 143, potassium 3.8, chloride 114, bicarbonate 23. BUN 11, creatinine 0.9, glucose 166, calcium 9.2. ASSESSMENT AND PLAN: 1. Uncontrolled hypertension, accelerated hypertension. Blood pressure seems to be more stable. Will continue with oral treatment. Nephrology and Cardiology Department on board. 2. Chronic hematuria. Dr. Chaves following this patient. No intervention for now. She is better. 3. Mechanical aortic valve replacement. Continue with anticoagulation which has been stopped today because she is going to get a surgical procedure. 4. Bilateral renal artery stenosis on CT scan of the abdomen. Surgery Department has been consulted. They will do today a selective angiography of the renal artery with possible stent placement; that has been explained to the patient and she seems to understand and agree with that. 5. Chronic kidney disease, stable. Nephrology on board. 6. Headaches, resolved. Neurology Department evaluated this patient. For now, we will monitor. Most of the time, this patient was complaining of headaches with high blood pressure. 7. History of cerebrovascular accident, aware. No symptoms today. 8. History of bipolar disorder. As per the patient, every time she gets anxious, she feels some chest discomfort, but at this moment she is stable. 9. Type 2 diabetes, stable. Continue with same management. 10. History of partial colectomy from ischemic bowel disease, no abdominal pain today. cc: Cheikh Ford MD
[2018-05-23] MEDS ORDERED: DIPRIVAN 1% ONE (09:27)
[2018-05-23] MEDS ORDERED: XYLOCAINE-MPF 2% ONE (09:29)
[2018-05-23] MEDS ORDERED: SODIUM CHLORIDE 0.9% 10 ML ONE (09:29)
[2018-05-23] MEDS ORDERED: NORCURON ONE (09:29)
[2018-05-23] MEDS ORDERED: QUELICIN (DOSE) ONE (09:29)
[2018-05-23] MEDS ORDERED: KEFZOL 1 GM/D5W 1 GM/50 ML IVPB ONE (10:27)
[2018-05-23] MEDS ORDERED: HEPARIN ONE ×2 (10:36)
[2018-05-23] MEDS ORDERED: SENSORCAINE-MPF 0.5%/EPI 1:200,000 ONE (10:37)
[2018-05-23] MEDS ORDERED: NS 2,000 ML ONE (10:37)
--- NOTE | 2018-05-23 11:50 | EKG Report ---
Test Performed on : 05/22/2018 00:50:53 AM Test Reason : CP Blood Pressure : / mmHG Vent. Rate : 069 BPM Atrial Rate : 069 BPM P-R Int : 218 ms QRS Dur : 104 ms QT Int : 446 ms P-R-T Axes : 044 060 154 degrees QTc Int : 477 ms Sinus rhythm. with 1st degree AV block. ST & T wave abnormality, consider lateral ischemia Prolonged QT Abnormal ECG When compared with ECG of 21-MAY-2018 06:49, (Unconfirmed) T wave inversion more evident in Lateral leads Confirmed by Herberth Arana MD ([id number]) on 05/23/2018 12:20:42 PM
[2018-05-23] MEDS ORDERED: HEPARIN (DOSE) ONE (11:59)
[2018-05-23] MEDS ORDERED: LASIX ONE (12:22)
[2018-05-23] MEDS ORDERED: ZOFRAN ONE (12:54)
[2018-05-23] MEDS: MORPHINE ONE ×2 (12:56→13:01)
[2018-05-23] MEDS: DILAUDID ONE ×2 (13:42→13:47)
[2018-05-23 13:44] LABS: URINE SOURCE CATH
[2018-05-23 13:47] LABS: BILIRUBIN URINE NEGATIVE (NEGATIVE); BLOOD URINE SMALL (NEGATIVE); COLOR YELLOW; GLUCOSE URINE 70 mg/dL (NEGATIVE); KETONE URINE TRACE mg/dL (NEGATIVE); LEUKOCYTES URINE LARGE (NEGATIVE); NITRITE URINE NEGATIVE (NEGATIVE); PH URINE 6.5; PROTEIN URINE 600 mg/dL (NEGATIVE); TURBIDITY URINE HAZY (CLEAR); UROBILINOGEN URINE NORMAL (NORMAL)
[2018-05-23 13:56] LABS: URINE BACTERIA 4+ /HPF; URINE RBC <10 /HPF (<10); URINE WBC <10 /HPF (<10)
--- NOTE | 2018-05-23 13:59 | NEPHROLOGY PROGRESS NOTE ---
DATE: 05/23/2018 TIME SEEN: 0725 hours. SUBJECTIVE: Ms. Mills is resting quietly in bed, the head of the bed is slightly elevated. She has no complaints. States that she is NPO secondary to a procedure with Dr. Melgoza this a.m. OBJECTIVE: Her most recent vital signs show temperature 97.9 degrees, blood pressure 128/71, heart rate 75, respirations 19, she is on room air. Last recorded saturation 95 %. She has had 400 in, she has had 600 mL out. LABS: The patient's most recent labs show her sodium is 143, potassium 3.8, chloride 114, CO2 23, BUN 11, creatinine 0.9, glucose 166. Anion gap 6. Calcium is 9.2. The patient had a white count of 5.88, hemoglobin 11, hematocrit 35.4, with a platelet count of 269,000. PHYSICAL EXAMINATION: General: This is an 83-year-old white female resting quietly in bed. She is in no acute distress. Skin: Warm and dry. HEENT: Normocephalic, atraumatic. Conjunctivae pale pink. She has CÉSAR. Mucous membranes are dry. Neck: Supple. Trachea midline. No evidence of JVD. Cardiovascular: Regular rate and rhythm. She is without murmur or gallop. Lungs: Clear to auscultation bilaterally. Equal excursion on room air. Abdomen: Large, round, soft, nontender. Positive bowel sounds. Genitourinary: Not inspected. The patient has been voiding adequate amount. Extremities: The extremities have no edema. No clubbing or cyanosis. Neurologic: Alert and oriented x3. ASSESSMENT AND PLAN: 1. Hypertension. Her blood pressure has improved on a regimen of Procardia XL 60 mg b.i.d., Coreg 25 mg b.i.d., and losartan 50 mg. due to her continued slight elevation we will increase her losartan to [address] angiography with renal arteriogram indicating possible stenting. She is NPO. Case has been discussed with Dr. Melgoza per Dr. June. The patient is in agreement to proceed. 3. Chronic hematuria. This, again, is followed by Dr. Chaves in the past. I would like to thank you for allowing us to follow with this patient. Dictated by MATTHEW Zamora for Maycol June MD Face to face encounter, data reviewed, discussed with Mili Snyder on 05/23/18. I agree with the above assessment and plan of care. cc: MATTHEW Zamora MD [facility]
[2018-05-23 14:01] LABS: UR EPITHELIAL CELLS <10 /HPF (<10)
[2018-05-23 14:02] LABS: URINE CASTS NONE SEEN
--- NOTE | 2018-05-23 14:02 | OPERATIVE NOTE ---
PROCEDURE DATE: 05/23/2018 PROCEDURE: Ultrasound-guided right common femoral artery access; aortogram; bilateral selective renal arteriogram; left renal artery stent placement with a 5 x 15 Palmaz Blue stent. SURGEON: Seymour Melgoza MD [employer] [address] RAIL[employer]: CAMPBELL Acevedo PREOPERATIVE DIAGNOSES: 1. Accelerated hypertension. 2. Possible bilateral renal artery stenosis. POSTOPERATIVE DIAGNOSES: 1. Accelerated hypertension. 2. Left renal artery stenosis. DESCRIPTION OF PROCEDURE: Satisfactory general endotracheal anesthesia was achieved. The abdomen and groins were prepped and draped in a sterile fashion. We ultrasounded the right common femoral artery and accessed it via Seldinger technique, and passed a 6-Guamanian sheath. We then passed a Glidewire into the aorta. We identified the L1 vertebral body and passed a pigtail above that, and shot an aortogram. We identified the takeoff of both the right and the left renal arteries. The left renal artery looked definitely more significant than the right renal artery. We switched to a Contra-2 catheter and accessed the left renal artery, and passed a Glidewire into the left renal. We then switched to an RDC catheter with the side injection port and we selected the left renal artery. This showed a stenosis that was probably greater than 75%, so we chose to stent this. We switched to an 0.018 wire and passed it into the distal left renal artery. We then gave the patient 5000 units of heparin. After this circulated for 3 minutes, we then passed the 5 x 15 Palmaz Blue stent up the RDC catheter. The catheter was engaged in the artery. We passed the stent to the end of the RDC catheter and pulled the RDC catheter back into the aorta, and we shot an aortogram through the RDC catheter to exactly identify the edge of the aorta, and that is where we positioned the proximal end of the stent and then deployed it to nominal pressures. Completion arteriogram showed excellent resolution of the stenosis. No evidence of extravasation, with a very good result. We did not feel that any post-stent dilatation was needed. We then pulled the RDC catheter back into the aorta, changed to a Glidewire, advanced it up into the aorta, then advanced the RDC catheter up and engaged the right renal artery, passed the Glidewire out and it and then selected it, and shot an arteriogram of it. There was just no significant stenosis noted in the right renal artery, possibly less than a 20% narrowing, but did not feel there was any indication for intervention. We then removed our catheter and wire. I used a Mynx closure according to labor contractor's specifications and deployed the plug. After removing the Mynx device, we held pressure for 5 minutes. Hemostasis was satisfactory. A sterile pressure dressing was applied. She tolerated it well. Estimated blood loss was about 35 mL. We used 55 mL of contrast. She was sent to the recovery room in satisfactory condition. cc: MD Garland Pearson MD
[2018-05-23] MEDS ORDERED: NORCO-5 PO PRN (14:43)
[2018-05-23] MEDS: ATIVAN PO PRN (20:50)
[2018-05-24 05:49] LABS: BASO# 0.02 X1000 (0.0-0.2); BASO% 0.3 % (0.0-0.8); EOS# 0.24 X1000 (0.0-0.7); EOS% 3.5 % (0.0-10.0); HEMATOCRIT 33.2 % (37.0-47.0); HEMOGLOBIN 10.2 g/dL (12.0-16.0); LYMPH# 1.28 X1000 (1.2-3.4); LYMPH% 18.9 % (20.5-51.1); MCH 28.7 PG (27-31); MCHC 30.7 g/dL (33-37); MCV 93.5 FL (81-99); MONO# 0.67 X1000 (0.11-0.59); MONO% 9.9 % (1.7-9.3); MPV 10.7 FL (7.4-10.4); NEUT# 4.56 X1000 (1.4-6.5); NEUT% 67.4 % (42.2-75.2); PLT 285 X1000 (130-400); RBC 3.55 XMIL (4.2-5.4); RDW 16.5 % (11.5-14.5); WBC 6.77 X1000 (4.8-10.8)
[2018-05-24 06:02] LABS: CALCIUM 8.1 mg/dL (8.8-10.2); CREATININE 1.1 mg/dL (0.5-0.9); POTASSIUM 3.6 mmol/L (3.5-5.1)
[2018-05-24 06:03] LABS: INR 0.98; PROTIME 13.8 Seconds (11.0-16.0)
[2018-05-24] MEDS: SODIUM CHLORIDE 0.9% INJ SCH (06:44)
[2018-05-24] MEDS: PROTONIX IV SCH (06:45)
[2018-05-24] MEDS: HUMALOG SUBQ SCH ×2 (06:45→13:00)
[2018-05-24] MEDS: ADALAT CC PO SCH (08:28)
[2018-05-24] MEDS: DULCOLAX PO SCH (08:28)
[2018-05-24] MEDS: COZAAR PO SCH (08:28)
[2018-05-24] MEDS: COREG PO SCH (08:28)
--- NOTE | 2018-05-24 12:59 | PROGRESS NOTE ---
DATE: 05/24/2018 Ms. Mills is awake, alert, attentive, and appropriate. She reports headache is not present now, and she reports almost no headache in the last few days. Chart shows systolic blood pressures recorded 120s-180s in the last day or so. I told her that I remain optimistic that headache will not be an issue with her blood pressure controlled. If she does have headache later, I will be glad to see her as an outpatient. Thanks for asking Neurology to see Ms. Mills. cc: MD SOPHIE Yee III
--- NOTE | 2018-05-24 13:31 | NEPHROLOGY PROGRESS NOTE ---
DATE: 05/24/2018 SUBJECTIVE: She states she is feeling well today. She has been able to get up. No shortness of breath. No immediate complications following her procedure. OBJECTIVE: Vital Signs: Blood pressure 129/76, heart rate 72, respirations 16, afebrile. General: No acute distress. Skin: Warm and dry. Conjunctivae are pink. Neck: Neck veins are not visible. Heart: Regular. Lungs: Equal. No crackles. Abdomen: Benign. Extremities: The extremities have no edema, clubbing, or cyanosis. IMPRESSION: Renal artery stenosis, status post left renal artery angioplasty with stenting. Blood pressure control is excellent. Okay to discharge home from my perspective on her current regimen and we will follow her as an outpatient. cc: Maycol June MD
--- NOTE | 2018-05-24 13:55 | GENERAL SURGERY PROGRESS NOTE ---
DATE: 05/24/2018 Ms. Mills is satisfactory, she is afebrile, her blood pressure recorded this morning was 129/76. Her puncture site in the right groin is fine. Her BUN is 10, creatinine 1.1. I am perfectly content with her going home if it is okay with all of the other doctors. She does not need to return to see me in followup unless there was some problem with her right groin puncture, and I have discussed this with her and her sons. cc: Seymour Melgoza MD
[2018-05-24 16:37] VITALS: BP 162/54
--- NOTE | 2018-05-25 14:49 | DISCHARGE SUMMARY ---
ADMISSION DATE: 05/20/2018 DISCHARGE DATE: 05/24/2018 CONSULTATIONS: 1. Dr. June with Nephrology. 2. Dr. Seymour Melgoza with General Surgery. 3. Dr. Garland Sorenson with Cardiology. 4. Dr. Christy Hubbard with Neurology. 5. Dr. Rogerio Chaves with Urology. PRIMARY PROCEDURES: 1. Head CT. Chronic appearing changes as described. No evidence of acute intracranial pathology. 2. Initial chest x-ray. Mild left basilar subsegmental atelectasis. No definite acute pathology. PERTINENT PROCEDURES: Ultrasound-guided right common femoral artery access, aortogram, bilateral selective renal arteriogram, left renal artery stent placement performed by Dr. Seymour Melgoza. DISCHARGE DIAGNOSES: Uncontrolled hypertension, accelerated hypertension secondary to renal artery stenosis. She has been followed by Cardiology as well as General Surgery. She was initially admitted to the ICU for accelerated hypertension on a Cardene drip and resumed on her home medications. Adjustments were made with Nephrology as well. She underwent a renal arteriogram with left renal artery stent placement with Dr. Melgoza. She has had very good blood pressure control since that time, as well as regarding changes to her medication , as well as resolution of her headache since blood pressures have been controlled and she is appropriate for discharge back home today. VITAL SIGNS: Temperature is 98 degrees, heart rate 70, respirations 24, blood pressure 167/47, O2 is 99% on room air. DISCHARGE DIET: Healthy heart. DISCHARGE MEDICATIONS: 1. NovoLog mix 70/30, 10 units subcutaneous at bedtime. 2. Allopurinol 100 mg p.o. daily. 3. Coreg 25 mg p.o. b.i.d. 4. Pepcid 40 mg p.o. daily. 5. Folic acid 1 mg p.o. daily. 6. Lasix 40 mg p.o. daily. 7. NovoLog mix 70/30, 15 units subcutaneous q.a.m. 8. Synthroid 50 mcg p.o. daily. 9. Potassium chloride 20 mEq p.o. daily. 10. Coumadin 2.5 mg p.o. at bedtime. 11. Dulcolax 5 mg p.o. b.i.d. 12. Lovenox 70 mg subcutaneously q.12 hours. This is a bridge with her Coumadin. 13. Levaquin 500 mg p.o. daily for 7 days. She had gram-negative rods growing in her urine. Awaiting final culture. 14. Cozaar 100 mg p.o. daily. 15. Nifedipine ER 60 mg p.o. b.i.d. 16. Cymbalta 30 mg p.o. daily. DISCHARGE INSTRUCTIONS: Ms. Mills is being discharged back to her assisted living with home health. She will continue on Lovenox twice a day until her INR is therapeutic, and INR will be monitored by her primary care doctor. She will also need to call for a followup appointment with her PCP. She will follow up with Dr. Chaves in 2 weeks for renal carbuncle removal, as well as Nephrology in [address] June. The patient and her son have been instructed for her to continue with her dose of Coumadin at home in addition to her Lovenox shots and again, will continue until her INR is therapeutic. 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 Hager would be glad to follow her as an outpatient. She can return to the ED or call 911 for any worsening of symptoms. Discharge time 35 minutes Dictated by MATTHEW Weathers for Cheikh Ford MD cc: MD Quynh Brewer MD William E. Hughes, MD Robert C. Walker, MD Luis N. Villanueva, MD MTDD
== END 2018-05-24 17:41 | disposition home health service (06) | DRG 674 ==
LOC: SUPCPDRO → ED 10:13 → ICU 15:33 → SUATTDRO 15:33 → 3S 05-22 10:15
PROVIDERS: ATTEND Internal Medicine
CPT/HCPCS: 36200; 70450; 71010; 71020; 71045; 71046; 75625; 80048; 80053; 81001; 82550; 82948; 83735; 84439; 84443; 84484; 85025; 85610; 85730; 87077; 87088; 87186; 93005; 93010; 94761; 96365; 96375; 96376; 97162; 97530; 99285; 99291; A9270; C1760; C9113; J0330; J0360; J0690; J1170; J1644; J1650; J1815; J1940; J2060; J2270; J2405; J7030; Q9967; S0164; XXXXX